=== PATIENT | male | born 1955 | race Two or more races ===

== ENCOUNTER 2021-04-02 17:10 | Inpatient (IN) | payer MEDICAID, OTHER ==
[~2021-04-02] VITALS: Ht 177.8 cm; Wt 83.5 kg
[2021-04-02] MEDS ORDERED: SODIUM CHLORIDE 0.9% 1,000 ML IV ONE (19:00)
[2021-04-02] MEDS ORDERED: IBUPROFEN 600 MG TAB PO ONE (19:00)
[2021-04-02 19:30] LABS: Calcium 8.2 mg/dL (8.5-10.1); Potassium 3.9 mmol/L (3.5-5.1)
[2021-04-02 19:34] LABS: Albumin 2.1 g/dL (3.4-5.0); BUN/Creatinine Ratio 12.1; Magnesium 2.1 mg/dL (1.6-2.6)
[2021-04-02 19:35] LABS: Basophils # (auto) 0 10 ^3/uL (0-0.2); Basophils % (auto) 0.3 % (0.0-2.0); Eosinophils # (auto) 0.1 10 ^3/uL (0-0.8); Eosinophils % (auto) 0.5 % (0.0-7.0); Hemoglobin 10.3 g/dL (13.5-17.5); Lymphocytes # (auto) 0.5 10 ^3/uL (0.4-5.4); Lymphocytes % (auto) 4.5 % (10.0-50.0)
[2021-04-02 19:36] LABS: Bilirubin, Total 0.6 mg/dL (0.2-1.0)
[2021-04-02 19:37] LABS: Hematocrit 31.2 % (41.0-53.0); Mean Corpuscular Hemoglobin 27.5 pg (28.0-32.0); Mean Corpuscular Hgb Conc. 32.9 g/dL (32.0-36.0); Mean Corpuscular Volume 83.6 fL (80.0-100.0); Monocytes # (auto) 1.2 10 ^3/uL (0-1.3); Monocytes % (auto) 11.3 % (0.0-12.0); Neutrophils # (auto) 8.5 10 ^3/uL (1.6-8.6); Neutrophils % (auto) 83.4 % (37.0-80.0); Red Blood Cells 3.74 10^6/uL (4.5-5.90); Red Cell Distribution Width 14.3 % (11.8-14.3); White Blood Cell 10.2 10^3/uL (4.4-10.8)
[2021-04-02] MEDS ORDERED: IOHEXOL 300 MG/ML 100ML BOTTLE IJ ONE (20:39)
[2021-04-02] MEDS ORDERED: ACETAMINOPHEN 325 MG TAB PO ONE (21:30)
[2021-04-02] MEDS ORDERED: metroNIDAZOLE 500MG/100ML 100 ML IV ONE (21:30)
[2021-04-02] MEDS ORDERED: CIPROFLOXACIN 400MG/200ML 200 ML IV ONE (21:30)
[2021-04-02] MEDS ORDERED: NITROGLYCERIN 0.4 MG SL TAB SL PRN (22:30)
[2021-04-02] MEDS ORDERED: MORPHINE SULFATE INJECTION 2 MG/ML SYRG IV PRN (22:30)
[2021-04-02] MEDS ORDERED: TEMAZEPAM 15 MG CAP PO PRN (22:30)
[2021-04-02] MEDS ORDERED: ACETAMINOPHEN 325 MG TAB PO PRN (22:30)
[2021-04-02] MEDS ORDERED: SODIUM CHLORIDE 0.9% 1,000 ML IV SCH (22:30)
[2021-04-02] MEDS ORDERED: PANTOPRAZOLE 40 MG/10 ML VIAL INJ IV ONE (22:30)
[2021-04-03 03:51] LABS: Basophils # (auto) 0 10 ^3/uL (0-0.2); Basophils % (auto) 0.3 % (0.0-2.0); Lymphocytes # (auto) 0.4 10 ^3/uL (0.4-5.4); Mean Corpuscular Volume 83.5 fL (80.0-100.0); White Blood Cell 12.2 10^3/uL (4.4-10.8)
[2021-04-03 03:52] LABS: Eosinophils # (auto) 0.1 10 ^3/uL (0-0.8); Eosinophils % (auto) 0.4 % (0.0-7.0); Hematocrit 28.6 % (41.0-53.0); Hemoglobin 9.3 g/dL (13.5-17.5); Lymphocytes % (auto) 3.5 % (10.0-50.0); Mean Corpuscular Hemoglobin 27.2 pg (28.0-32.0); Mean Corpuscular Hgb Conc. 32.6 g/dL (32.0-36.0); Monocytes # (auto) 1.6 10 ^3/uL (0-1.3); Monocytes % (auto) 13.1 % (0.0-12.0); Neutrophils # (auto) 10.1 10 ^3/uL (1.6-8.6); Neutrophils % (auto) 82.7 % (37.0-80.0); Red Blood Cells 3.42 10^6/uL (4.5-5.90); Red Cell Distribution Width 14.5 % (11.8-14.3)
[2021-04-03 04:13] LABS: Albumin 1.7 g/dL (3.4-5.0); Calcium 7.5 mg/dL (8.5-10.1); Potassium 3.3 mmol/L (3.5-5.1)
[2021-04-03 04:21] LABS: Bilirubin, Total 0.6 mg/dL (0.2-1.0); Total Protein 5.9 g/dL (6.4-8.2)
[2021-04-03] MEDS: metroNIDAZOLE 500MG/100ML 100 ML IV SCH ×3 (05:30→22:00)
[2021-04-03] MEDS ORDERED: ALBUMIN 5% 250 ML IV ONE (05:45)
[2021-04-03] MEDS ORDERED: POTASSIUM CHLORIDE 20 MEQ, LIDOCAINE 1% (LOCAL ANESTH.) 2 ML in SODIUM CHL 0.9% 100 ML IV ONE (11:00)
[2021-04-03] MEDS: cefTRIAXone 1GM/50ML D5W 50 ML IV SCH (11:05)
[2021-04-03] MEDS: PANTOPRAZOLE 40 MG/10 ML VIAL INJ IV SCH (11:06)
[2021-04-03] MEDS ORDERED: GOLYTELY 4L KIT PO ONE (11:30)
[2021-04-03] MEDS: SOD CHL 0.9%/ KCL 20MEQ 1,000 ML IV SCH (15:57)
[2021-04-03 16:21] LABS: % Iron Saturation 7.2 % (20-55)
[2021-04-03] MEDS: ONDANSETRON HCL 4 MG/2 ML VIAL IV PRN (17:23)
[2021-04-04 04:57] LABS: Urine Bacteria NONE SEEN /hpf (None Seen); Urine Blood Negative /uL (Negative); Urine Hyaline Cast MOD /lpf (0 - 2); Urine Mucus FEW (None Seen); Urine Specific Gravity 1.037 (1.001-1.035); Urine WBC 4 /hpf (0 - 3)
[2021-04-04 04:59] LABS: Alcohol, Urine < 3.0 mg/dL (0-10); Amphetamine Screen, Urine NEGATIVE (NEGATIVE); Barbiturate Scree,Urine NEGATIVE (NEGATIVE); Benzodiazephine Screen, Urine NEGATIVE (NEGATIVE); Cannabinoid Screen, Urine NEGATIVE (NEGATIVE); Cocaine Screen, Urine NEGATIVE (NEGATIVE); Opiate Scree,Urine NEGATIVE (NEGATIVE); Phencyclidine Screen, Urine NEGATIVE (NEGATIVE)
[2021-04-04] MEDS: metroNIDAZOLE 500MG/100ML 100 ML IV SCH ×3 (06:36→22:49)
[2021-04-04] MEDS: SOD CHL 0.9%/ KCL 20MEQ 1,000 ML IV SCH ×2 (06:37→15:51)
[2021-04-04] MEDS ORDERED: PANT40TA2 PO (06:46)
[2021-04-04 08:00] VITALS: BP 120/84
[2021-04-04 08:37] LABS: INR 1.21 (0.9-1.15); Partial Thromboplastin Time 38.6 sec (23.6-33.0)
[2021-04-04 09:00] VITALS: BP 120/64
[2021-04-04] MEDS ORDERED: SODIUM CHLORIDE LOCK 10 ML ONE (09:03)
[2021-04-04] MEDS ORDERED: diphenhdrAMINE HCL 50 MG/1 ML VL ONE (09:04)
[2021-04-04] MEDS: PANTOPRAZOLE 40 MG/10 ML VIAL INJ IV SCH (09:18)
[2021-04-04] MEDS: cefTRIAXone 1GM/50ML D5W 50 ML IV SCH (09:18)
[2021-04-04] MEDS: MIDAZOLAM HCL 5 MG/ML-1ML VIAL ONE ×3 (09:51→10:00)
[2021-04-04] MEDS: fentaNYL CITRATE 100 MCG/2 ML VL ONE ×3 (09:51→10:00)
[2021-04-04] MEDS ORDERED: LIDOCAINE VISCOUS 2% 15ML UD MT ONE (12:45)
[2021-04-04 13:00] VITALS: BP 121/71
[2021-04-04 16:36] VITALS: BP 121/67
[2021-04-04 22:00] VITALS: BP 147/78
[2021-04-04] MEDS: HYDROcodone-ACET 5/325MG TAB PO PRN (22:51)
[2021-04-05 05:00] VITALS: BP 118/66
[2021-04-05] MEDS: LIDOCAINE VISCOUS 2% 15ML UD MT PRN ×2 (05:06→18:34)
[2021-04-05 05:44] LABS: Hematocrit 24.2 % (41.0-53.0); Hemoglobin 8.3 g/dL (13.5-17.5)
[2021-04-05 06:04] LABS: BUN/Creatinine Ratio 15.7; Calcium 7.5 mg/dL (8.5-10.1); Potassium 3.5 mmol/L (3.5-5.1)
[2021-04-05] MEDS: metroNIDAZOLE 500MG/100ML 100 ML IV SCH ×3 (06:55→21:32)
[2021-04-05 08:00] VITALS: BP 134/80
[2021-04-05 09:00] VITALS: BP 134/80
[2021-04-05] MEDS: cefTRIAXone 1GM/50ML D5W 50 ML IV SCH (09:00)
[2021-04-05] MEDS: FERROUS SULFATE 325mg EC TAB PO SCH (12:00)
[2021-04-05 13:00] VITALS: BP 141/79
[2021-04-05 16:50] VITALS: BP 128/69
[2021-04-05] MEDS: HYDROcodone-ACET 5/325MG TAB PO PRN (21:31)
[2021-04-05] MEDS: ONDANSETRON HCL 4 MG/2 ML VIAL IV PRN (21:32)
[2021-04-05 22:00] VITALS: BP 116/60
[2021-04-06 05:00] VITALS: BP 110/61
[2021-04-06] MEDS: metroNIDAZOLE 500MG/100ML 100 ML IV SCH ×3 (05:54→21:25)
[2021-04-06 07:18] LABS: Basophils # (auto) 0 10 ^3/uL (0-0.2); Eosinophils # (auto) 0.2 10 ^3/uL (0-0.8); Hemoglobin 8.6 g/dL (13.5-17.5); Lymphocytes # (auto) 0.7 10 ^3/uL (0.4-5.4); Monocytes # (auto) 0.9 10 ^3/uL (0-1.3); Neutrophils # (auto) 3.3 10 ^3/uL (1.6-8.6)
[2021-04-06 07:19] LABS: Basophils % (auto) 0.6 % (0.0-2.0); Eosinophils % (auto) 3.7 % (0.0-7.0); Hematocrit 25.8 % (41.0-53.0); Lymphocytes % (auto) 13.3 % (10.0-50.0); Mean Corpuscular Hemoglobin 27.6 pg (28.0-32.0); Mean Corpuscular Hgb Conc. 33.2 g/dL (32.0-36.0); Mean Corpuscular Volume 83.2 fL (80.0-100.0); Monocytes % (auto) 17.1 % (0.0-12.0); Neutrophils % (auto) 65.3 % (37.0-80.0); Nucleated Red Blood Cells % 0.6 %; Red Blood Cells 3.11 10^6/uL (4.5-5.90); Red Cell Distribution Width 14.8 % (11.8-14.3)
[2021-04-06 07:38] LABS: Magnesium 1.9 mg/dL (1.6-2.6); Potassium 3.2 mmol/L (3.5-5.1)
[2021-04-06] MEDS: LIDOCAINE VISCOUS 2% 15ML UD MT PRN ×2 (08:38→18:27)
[2021-04-06 09:00] VITALS: BP 120/68
[2021-04-06] MEDS ORDERED: POTASSIUM CHL 20 Meq TABLET PO ONE (09:15)
[2021-04-06] MEDS: cefTRIAXone 1GM/50ML D5W 50 ML IV SCH (09:38)
[2021-04-06] MEDS ORDERED: MAGNESIUM SULFATE 1GM/100ML 100 ML IV ONE (10:45)
[2021-04-06 12:40] LABS: Hematocrit 25.5 % (41.0-53.0); Hemoglobin 8.6 g/dL (13.5-17.5)
[2021-04-06 12:52] LABS: Magnesium 1.8 mg/dL (1.6-2.6); Potassium 3.3 mmol/L (3.5-5.1)
[2021-04-06 13:05] VITALS: BP 116/70
[2021-04-06] MEDS: FERROUS SULFATE 325mg EC TAB PO SCH (14:09)
[2021-04-06 17:10] VITALS: BP 112/71
[2021-04-06] MEDS: HYOSCYAMINE SULF 0.125 MG ODT TAB PO PRN (18:28)
[2021-04-06 22:00] VITALS: BP 119/68
[2021-04-07] MEDS: HYOSCYAMINE SULF 0.125 MG ODT TAB PO PRN (00:07)
[2021-04-07 05:00] VITALS: BP 123/68
[2021-04-07] MEDS: metroNIDAZOLE 500MG/100ML 100 ML IV SCH ×2 (05:49→14:30)
[2021-04-07] MEDS: HYDROcodone-ACET 5/325MG TAB PO PRN ×2 (06:01→11:39)
[2021-04-07] MEDS: LIDOCAINE VISCOUS 2% 15ML UD MT PRN (08:27)
[2021-04-07] MEDS: cefTRIAXone 1GM/50ML D5W 50 ML IV SCH (08:27)
[2021-04-07 08:30] VITALS: BP 119/67
[2021-04-07] MEDS ORDERED: MAGNESIUM SULFATE 1GM/100ML 100 ML IV ONE (09:45)
[2021-04-07] MEDS ORDERED: POTASSIUM CHL 20 Meq TABLET PO ONE (09:45)
[2021-04-07] MEDS: FERROUS SULFATE 325mg EC TAB PO SCH (11:39)
[2021-04-07 12:30] VITALS: BP 115/64
[2021-04-07] MEDS ORDERED: HYOS0.1289 PO (12:51)
[2021-04-07] MEDS ORDERED: METR500T PO (12:51)
[2021-04-07] MEDS ORDERED: LEVO-28 PO (12:51)
[2021-04-07] MEDS ORDERED: ONDA-144 PO (12:51)
[2021-04-07 13:26] VITALS: BP 115/64
[2021-04-07] MEDS ORDERED: LIDV15LQ MT (14:31)
[2021-04-07] MEDS ORDERED: FER325T PO (15:35)
== END 2021-04-07 14:32 | disposition hospice, home (50) | DRG 245 ==
LOC: ER 17:10 → TELE 22:23 → TELE-CENTR 04-04 05:55
PROVIDERS: ADMIT Nurse Practitioner; ATTEND Internal Medicine
PROC: 0DJD8ZZ Inspection of Lower Intestinal Tract, Via Natural or Artificial Opening Endoscopic (ICD-10-PCS; principal; 2021-04-04 09:45)
DX: K51.90 Ulcerative colitis, unspecified, without complications (principal); E43 Unspecified severe protein-calorie malnutrition; D50.9 Iron deficiency anemia, unspecified; I10 Essential (primary) hypertension; E87.6 Hypokalemia; K92.1 Melena; Z20.822 Contact with and (suspected) exposure to COVID-19; Z96.649 Presence of unspecified artificial hip joint; Z68.25 Body mass index [BMI] 25.0-25.9, adult; Z85.46 Personal history of malignant neoplasm of prostate
CPT/HCPCS: 36415; 45378; 71045; 71260; 74177; 80048; 80053; 80307; 81001; 83540; 83550; 83605; 83690; 83735; 83880; 84132; 84484; 85014; 85018; 85025; 85610; 85730; 86703; 86850; 86900; 86901; 87040; 87045; 87426; 87427; 93005; 96361; 96365; 96366; 96368; 96375; C9113; G0378; J0696; J2001; J2250; J2405; J3490

== ENCOUNTER → 2021-05-05 | Outpatient (CLI) | payer MEDICAID ==
[~2021-05-05] MED LIST: FER325T PO; HYOS0.1289 PO; LEVO-28 PO; LIDV15LQ MT; METR500T PO; ONDA-144 PO
[2021-05-05 12:10] LABS: Basophils # (auto) 0.1 10 ^3/uL (0-0.2); Basophils % (auto) 0.6 % (0.0-2.0); Eosinophils # (auto) 0 10 ^3/uL (0-0.8); Eosinophils % (auto) 0.3 % (0.0-7.0); Hematocrit 31.8 % (41.0-53.0); Hemoglobin 10.2 g/dL (13.5-17.5); Lymphocytes # (auto) 1.5 10 ^3/uL (0.4-5.4); Mean Corpuscular Volume 84.3 fL (80.0-100.0); Monocytes # (auto) 0.9 10 ^3/uL (0-1.3); Monocytes % (auto) 9.1 % (0.0-12.0); Neutrophils # (auto) 7.6 10 ^3/uL (1.6-8.6); Red Blood Cells 3.78 10^6/uL (4.5-5.90); Red Cell Distribution Width 22.4 % (11.8-14.3); White Blood Cell 10.1 10^3/uL (4.4-10.8)
[2021-05-05 12:31] LABS: Albumin 2.4 g/dL (3.4-5.0); Potassium 3.6 mmol/L (3.5-5.1)
[2021-05-05 12:36] LABS: BUN/Creatinine Ratio 18.2; Bilirubin, Total 0.3 mg/dL (0.2-1.0)
== END | disposition home or self-care (01) ==
LOC: LAB 11:18
PROVIDERS: ATTEND Internal Medicine Gastroenterology
DX: R19.7 Diarrhea, unspecified (principal); K51.90 Ulcerative colitis, unspecified, without complications
CPT/HCPCS: 36415; 80053; 82728; 85025; 86256; 86671

== ENCOUNTER → 2021-06-23 | Outpatient (CLI) | payer MEDICAID ==
[2021-06-23 11:37] LABS: Basophils # (auto) 0 10 ^3/uL (0-0.2); Eosinophils # (auto) 0 10 ^3/uL (0-0.8); Eosinophils % (auto) 0.7 % (0.0-7.0); Lymphocytes # (auto) 0.3 10 ^3/uL (0.4-5.4); Mean Corpuscular Hgb Conc. 32.5 g/dL (32.0-36.0); Monocytes # (auto) 0.8 10 ^3/uL (0-1.3); Neutrophils # (auto) 3.5 10 ^3/uL (1.6-8.6); Nucleated Red Blood Cells % 0.1 %; Red Blood Cells 4.24 10^6/uL (4.5-5.90)
[2021-06-23 11:40] LABS: Basophils % (auto) 0.9 % (0.0-2.0); Hematocrit 33.7 % (41.0-53.0); Lymphocytes % (auto) 6.5 % (10.0-50.0); Mean Corpuscular Hemoglobin 25.8 pg (28.0-32.0); Mean Corpuscular Volume 79.3 fL (80.0-100.0); Monocytes % (auto) 16.7 % (0.0-12.0); Neutrophils % (auto) 75.2 % (37.0-80.0); Red Cell Distribution Width 18.6 % (11.8-14.3); White Blood Cell 4.6 10^3/uL (4.4-10.8)
[2021-06-23 12:43] LABS: Calcium 8.6 mg/dL (8.5-10.1); Potassium 3.7 mmol/L (3.5-5.1)
[2021-06-23 12:46] LABS: BUN/Creatinine Ratio 8.4
== END | disposition home or self-care (01) ==
LOC: LAB 11:19
PROVIDERS: ATTEND Internal Medicine Gastroenterology
DX: K51.90 Ulcerative colitis, unspecified, without complications (principal); D64.9 Anemia, unspecified
CPT/HCPCS: 36415; 80048; 83690; 85025

== ENCOUNTER → 2022-01-02 | Outpatient (CLI) | payer MEDICAID ==
[2022-01-02 08:53] LABS: Basophils # (auto) 0 10 ^3/uL (0-0.2); Basophils % (auto) 0.7 % (0.0-2.0); Eosinophils # (auto) 0.1 10 ^3/uL (0-0.8); Hematocrit 38.1 % (41.0-53.0); Hemoglobin 12.3 g/dL (13.5-17.5); Lymphocytes # (auto) 0.9 10 ^3/uL (0.4-5.4); Mean Corpuscular Hemoglobin 29.4 pg (28.0-32.0); Mean Corpuscular Hgb Conc. 32.3 g/dL (32.0-36.0); Mean Corpuscular Volume 90.9 fL (80.0-100.0); Monocytes # (auto) 0.7 10 ^3/uL (0-1.3); Monocytes % (auto) 16.4 % (0.0-12.0); Neutrophils # (auto) 2.6 10 ^3/uL (1.6-8.6); Neutrophils % (auto) 59.9 % (37.0-80.0); Nucleated Red Blood Cells % 0.1 %; Red Blood Cells 4.19 10^6/uL (4.5-5.90); Red Cell Distribution Width 16.9 % (11.8-14.3); White Blood Cell 4.4 10^3/uL (4.4-10.8)
[2022-01-02 09:18] LABS: Albumin 3.3 g/dL (3.4-5.0); Calcium 8.5 mg/dL (8.5-10.1); Potassium 3.4 mmol/L (3.5-5.1)
[2022-01-02 09:23] LABS: BUN/Creatinine Ratio 10.8; Bilirubin, Total 0.5 mg/dL (0.2-1.0); Total Protein 6.3 g/dL (6.4-8.2)
== END | disposition home or self-care (01) ==
LOC: LAB 08:23
PROVIDERS: ATTEND Internal Medicine Gastroenterology
DX: K51.90 Ulcerative colitis, unspecified, without complications (principal)
CPT/HCPCS: 36415; 80053; 85025; 85652

== ENCOUNTER 2022-03-01 23:15 | Inpatient (IN) | payer BC, MEDICAID ==
[~2022-03-01] VITALS: Ht 172.7 cm; Wt 86.0 kg
[2022-03-02 02:09] LABS: Basophils # (auto) 0 10 ^3/uL (0-0.2); Basophils % (auto) 0.6 % (0.0-2.0); Eosinophils # (auto) 0 10 ^3/uL (0-0.8); Eosinophils % (auto) 0.7 % (0.0-7.0); Hematocrit 31.4 % (41.0-53.0); Hemoglobin 10.6 g/dL (13.5-17.5); Lymphocytes # (auto) 0.4 10 ^3/uL (0.4-5.4); Mean Corpuscular Hemoglobin 31.4 pg (28.0-32.0); Mean Corpuscular Hgb Conc. 33.8 g/dL (32.0-36.0); Monocytes # (auto) 0.7 10 ^3/uL (0-1.3); Monocytes % (auto) 12.1 % (0.0-12.0); Neutrophils # (auto) 4.3 10 ^3/uL (1.6-8.6); Neutrophils % (auto) 79.6 % (37.0-80.0); Red Blood Cells 3.38 10^6/uL (4.5-5.90); Red Cell Distribution Width 13.2 % (11.8-14.3); White Blood Cell 5.4 10^3/uL (4.4-10.8)
[2022-03-02 02:27] LABS: Potassium 3.6 mmol/L (3.5-5.1)
[2022-03-02 02:32] LABS: Albumin 2.9 g/dL (3.4-5.0); BUN/Creatinine Ratio 12.4
[2022-03-02 02:35] LABS: Bilirubin, Total 0.2 mg/dL (0.2-1.0); Total Protein 6.2 g/dL (6.4-8.2)
[2022-03-02] MEDS ORDERED: PANTOPRAZOLE 80 MG in SODIUM CHL 0.9% 100 ML IV ONE (03:45)
[2022-03-02] MEDS ORDERED: PANTOPRAZOLE 40mg/50ML NS AE 50 ML IV ONE (03:45)
[2022-03-02 03:52] LABS: Urine Bacteria NONE SEEN /hpf (None Seen); Urine Blood Negative /uL (Negative); Urine Hyaline Cast MANY /lpf (0 - 2); Urine Mucus FEW (None Seen); Urine Specific Gravity 1.028 (1.001-1.035); Urine WBC 5 /hpf (0 - 3)
[2022-03-02] MEDS ORDERED: PANTOPRAZOLE 40 MG/10 ML VIAL INJ IV ONE (04:09)
[2022-03-02] MEDS ORDERED: ONDANSETRON HCL 4 MG/2 ML VIAL IV PRN (06:15)
[2022-03-02] MEDS ORDERED: MORPHINE SULFATE INJ 2 MG/ml SYRG IV PRN (06:15)
[2022-03-02] MEDS ORDERED: NITROGLYCERIN 0.4 MG SL TAB SL PRN (06:15)
[2022-03-02] MEDS: SODIUM CHLORIDE 0.9% 1,000 ML IV SCH ×2 (06:43→21:10)
[2022-03-02 06:58] LABS: Hematocrit 31.6 % (41.0-53.0); Hemoglobin 10.5 g/dL (13.5-17.5)
[2022-03-02 07:15] LABS: INR 0.98 (0.9-1.15); Partial Thromboplastin Time 33.5 sec (24.6-33.4)
[2022-03-02 08:39] LABS: Amphetamine Screen, Urine NEGATIVE (NEGATIVE); Barbiturate Scree,Urine NEGATIVE (NEGATIVE); Benzodiazephine Screen, Urine NEGATIVE (NEGATIVE); Cannabinoid Screen, Urine NEGATIVE (NEGATIVE); Cocaine Screen, Urine NEGATIVE (NEGATIVE); Opiate Scree,Urine POSITIVE (NEGATIVE); Phencyclidine Screen, Urine NEGATIVE (NEGATIVE)
[2022-03-02] MEDS: PANTOPRAZOLE 40 MG/10 ML VIAL INJ IV SCH ×2 (10:11→22:58)
[2022-03-03 01:14] VITALS: BP_SYST 135; BP_SYST 148; BP_DIAS 75; BP_DIAS 80
[2022-03-03 05:08] LABS: Basophils # (auto) 0 10 ^3/uL (0-0.2); Basophils % (auto) 1.1 % (0.0-2.0); Eosinophils # (auto) 0.2 10 ^3/uL (0-0.8); Eosinophils % (auto) 4.1 % (0.0-7.0); Hematocrit 31.9 % (41.0-53.0); Hemoglobin 10.5 g/dL (13.5-17.5); Lymphocytes # (auto) 0.7 10 ^3/uL (0.4-5.4); Lymphocytes % (auto) 16.8 % (10.0-50.0); Mean Corpuscular Hemoglobin 30.6 pg (28.0-32.0); Mean Corpuscular Hgb Conc. 32.9 g/dL (32.0-36.0); Mean Corpuscular Volume 93.1 fL (80.0-100.0); Monocytes # (auto) 0.6 10 ^3/uL (0-1.3); Monocytes % (auto) 14.6 % (0.0-12.0); Neutrophils # (auto) 2.7 10 ^3/uL (1.6-8.6); Neutrophils % (auto) 63.4 % (37.0-80.0); Red Blood Cells 3.43 10^6/uL (4.5-5.90); Red Cell Distribution Width 13.2 % (11.8-14.3); White Blood Cell 4.2 10^3/uL (4.4-10.8)
[2022-03-03 05:29] LABS: Albumin 2.6 g/dL (3.4-5.0); Potassium 3.7 mmol/L (3.5-5.1)
[2022-03-03 05:39] LABS: BUN/Creatinine Ratio 8.8; Bilirubin, Total 0.4 mg/dL (0.2-1.0); CRP High Sensitivity 2.4 mg/dL (< 0.3); Total Protein 5.3 g/dL (6.4-8.2)
[2022-03-03] MEDS: SODIUM CHLORIDE 0.9% 1,000 ML IV SCH ×2 (08:55→22:22)
[2022-03-03 09:00] VITALS: BP 134/70
[2022-03-03] MEDS ORDERED: SODIUM CHLORIDE LOCK 0 ML ONE (09:11)
[2022-03-03] MEDS ORDERED: LIDOCAINE VISCOUS 2% 15ML UD ONE (09:12)
[2022-03-03] MEDS ORDERED: diphenhdrAMINE HCL 50 MG/1 ML VL ONE (09:12)
[2022-03-03] MEDS ORDERED: MIDAZOLAM HCL 5 MG/ML-1ML VIAL ONE (09:12)
[2022-03-03] MEDS ORDERED: fentaNYL CITRATE 100 MCG/2 ML VL ONE (09:12)
[2022-03-03] MEDS: predniSONE 20 MG TAB PO SCH (10:00)
[2022-03-03] MEDS: PANTOPRAZOLE 40 MG/10 ML VIAL INJ IV SCH ×2 (10:00→22:22)
[2022-03-03] MEDS: azaTHIOprine 50 MG TAB PO SCH (10:00)
[2022-03-03 13:00] VITALS: BP 142/70
[2022-03-03] MEDS ORDERED: ACETAMINOPHEN 500 MG TAB PO PRN (16:00)
[2022-03-03 17:00] VITALS: BP 145/73
[2022-03-03] MEDS ORDERED: AZAT50TA6 PO (19:38)
[2022-03-03] MEDS ORDERED: SULF500T6 PO (19:38)
[2022-03-03] MEDS ORDERED: FOLI1TAB6 PO (19:38)
[2022-03-03] MEDS ORDERED: PANT40TA2 PO (19:38)
[2022-03-03] MEDS ORDERED: PRE5T PO (19:38)
[2022-03-03 22:00] VITALS: BP 125/69
[2022-03-04 05:00] VITALS: BP 140/70
[2022-03-04 09:00] VITALS: BP 152/71
[2022-03-04] MEDS ORDERED: LIDOCAINE VISCOUS 2% 15ML UD ONE (09:10)
[2022-03-04] MEDS ORDERED: SODIUM CHLORIDE LOCK 10 ML ONE (09:10)
[2022-03-04] MEDS ORDERED: diphenhdrAMINE HCL 50 MG/1 ML VL ONE (09:11)
[2022-03-04] MEDS: fentaNYL CITRATE 100 MCG/2 ML VL ONE ×2 (09:19→09:23)
[2022-03-04] MEDS: MIDAZOLAM HCL 5 MG/ML-1ML VIAL ONE ×2 (09:19→09:23)
[2022-03-04] MEDS: PANTOPRAZOLE 40 MG/10 ML VIAL INJ IV SCH ×2 (10:28→21:37)
[2022-03-04] MEDS: azaTHIOprine 50 MG TAB PO SCH (10:29)
[2022-03-04] MEDS: predniSONE 20 MG TAB PO SCH (10:29)
[2022-03-04] MEDS ORDERED: SULF500T6 PO (10:35)
[2022-03-04] MEDS: SODIUM CHLORIDE 0.9% 1,000 ML IV SCH (12:10)
[2022-03-04 13:00] VITALS: BP 142/81
[2022-03-04] MEDS: OXYCODONE W/ ACETAMINOPHEN 5/325MG TABLET PO PRN ×2 (14:27→21:38)
[2022-03-04 17:00] VITALS: BP 138/78
[2022-03-04 22:00] VITALS: BP 138/78
[2022-03-05] MEDS: SODIUM CHLORIDE 0.9% 1,000 ML IV SCH ×2 (00:57→13:54)
[2022-03-05 05:00] VITALS: BP 154/76
[2022-03-05 05:57] LABS: Hemoglobin 11.4 g/dL (13.5-17.5); Mean Corpuscular Hemoglobin 31.6 pg (28.0-32.0); Mean Corpuscular Hgb Conc. 34.6 g/dL (32.0-36.0); Mean Corpuscular Volume 91.4 fL (80.0-100.0); Red Blood Cells 3.61 10^6/uL (4.5-5.90); Red Cell Distribution Width 12.7 % (11.8-14.3); White Blood Cell 4.4 10^3/uL (4.4-10.8)
[2022-03-05 06:25] LABS: Band Neutrophils % (manual) 0; Basophils % (manual) 0 (0.0-2.0); Blast Cells 0; Eosinophils % (manual) 0 (0-7); Metamyelocytes % 0; Myelocytes % 0; Promyelocytes % 0; Reactive Lymphocytes 0
[2022-03-05 07:39] LABS: Lymphocytes % (manual) 13 (10.0-50.0); Monocytes % (manual) 16 (0-12)
[2022-03-05 08:15] VITALS: BP 137/73
[2022-03-05] MEDS ORDERED: PANT40T PO (08:23)
[2022-03-05] MEDS ORDERED: FOLI1TAB6 PO (08:23)
[2022-03-05] MEDS ORDERED: AZAT50TA6 PO (08:23)
[2022-03-05] MEDS ORDERED: PRED20TA2 PO (08:23)
[2022-03-05] MEDS ORDERED: SULF500T6 PO (08:24)
[2022-03-05 09:00] VITALS: BP 137/73
[2022-03-05] MEDS: OXYCODONE W/ ACETAMINOPHEN 5/325MG TABLET PO PRN (09:07)
[2022-03-05] MEDS: PANTOPRAZOLE 40 MG/10 ML VIAL INJ IV SCH (10:17)
[2022-03-05] MEDS: predniSONE 20 MG TAB PO SCH (10:18)
[2022-03-05] MEDS: azaTHIOprine 50 MG TAB PO SCH (10:19)
[2022-03-05 12:52] VITALS: BP 137/73
[2022-03-05 13:00] VITALS: BP 141/69
== END 2022-03-05 14:40 | disposition home or self-care (01) | DRG 378 ==
LOC: EDBD 23:15 → EDUNIT# 23:15 → ER 23:20 → TELE 03-02 06:06 → TELE-CENTR 03-02 21:48
PROVIDERS: ADMIT Nurse Practitioner; ATTEND Family Medicine
PROC: 0DB68ZX Excision of Stomach, Via Natural or Artificial Opening Endoscopic, Diagnostic (ICD-10-PCS; principal; 2022-03-04 09:15)
DX: K29.71 Gastritis, unspecified, with bleeding (principal); D62 Acute posthemorrhagic anemia; I10 Essential (primary) hypertension; Z20.822 Contact with and (suspected) exposure to COVID-19; Z85.46 Personal history of malignant neoplasm of prostate
CPT/HCPCS: 36415; 71045; 73030; 80053; 80307; 81001; 82270; 85007; 85014; 85018; 85025; 85027; 85610; 85730; 86141; 86850; 86900; 86901; 87045; 87427; 96365; C9113; G0378; J2250

== ENCOUNTER → 2022-07-20 | Outpatient (CLI) | payer BC, MEDICAID ==
[~2022-07-20] MED LIST changes: +AZAT50TA6 PO; +FOLI1TAB6 PO; +PANT40T PO; +PANT40TA2 PO; +PRE5T PO; +PRED20TA2 PO; +SULF500T6 PO
[2022-07-20 12:28] LABS: Basophils # (auto) 0 10 ^3/uL (0-0.2); Basophils % (auto) 0.9 % (0.0-2.0); Eosinophils # (auto) 0.1 10 ^3/uL (0-0.8); Eosinophils % (auto) 2.6 % (0.0-7.0); Hematocrit 37.2 % (41.0-53.0); Hemoglobin 12.1 g/dL (13.5-17.5); Lymphocytes # (auto) 0.7 10 ^3/uL (0.4-5.4); Lymphocytes % (auto) 18.4 % (10.0-50.0); Mean Corpuscular Hemoglobin 28.8 pg (28.0-32.0); Mean Corpuscular Hgb Conc. 32.4 g/dL (32.0-36.0); Mean Corpuscular Volume 88.8 fL (80.0-100.0); Monocytes # (auto) 0.6 10 ^3/uL (0-1.3); Monocytes % (auto) 16.8 % (0.0-12.0); Neutrophils # (auto) 2.3 10 ^3/uL (1.6-8.6); Neutrophils % (auto) 61.3 % (37.0-80.0); Red Blood Cells 4.19 10^6/uL (4.5-5.90); Red Cell Distribution Width 15.4 % (11.8-14.3); White Blood Cell 3.7 10^3/uL (4.4-10.8)
[2022-07-20 13:02] LABS: Potassium 3.7 mmol/L (3.5-5.1)
[2022-07-20 13:24] LABS: Albumin 3.6 g/dL (3.4-5.0); BUN/Creatinine Ratio 12.9; Bilirubin, Total 0.4 mg/dL (0.2-1.0); Total Protein 6.9 g/dL (6.4-8.2)
== END | disposition home or self-care (01) ==
LOC: LAB 10:56
PROVIDERS: ATTEND Internal Medicine Gastroenterology
DX: K51.90 Ulcerative colitis, unspecified, without complications (principal)
CPT/HCPCS: 36415; 80053; 80061; 82378; 83036; 85025

== ENCOUNTER → 2024-07-28 | Day surgery (SDC) | payer MEDICAID ==
[2024-07-24 11:08] LABS: INR 0.99 (0.9-1.15); Partial Thromboplastin Time 33.2 SEC (24.5-34.5); Prothrombin Time 10.5 sec (9.3-11.8)
[2024-07-24 11:16] LABS: Basophils # (auto) 0 10 ^3/uL (0-0.2); Basophils % (auto) 0.7 % (0.0-2.0); Eosinophils # (auto) 0.1 10 ^3/uL (0-0.8); Hematocrit 40.6 % (41.0-53.0); Hemoglobin 13.6 g/dL (13.5-17.5); Lymphocytes # (auto) 0.5 10 ^3/uL (0.4-5.4); Mean Corpuscular Hemoglobin 30.7 pg (28.0-32.0); Mean Corpuscular Hgb Conc. 33.4 g/dL (32.0-36.0); Monocytes # (auto) 0.5 10 ^3/uL (0-1.3); Monocytes % (auto) 13.7 % (0.0-12.0); Neutrophils # (auto) 2.4 10 ^3/uL (1.6-8.6); Neutrophils % (auto) 66.6 % (37.0-80.0); Nucleated Red Blood Cells % 0.1 %; Platelet Count (auto) 210 10^3/uL (140-450); Red Blood Cells 4.42 10^6/uL (4.5-5.90); Red Cell Distribution Width 15.8 % (11.8-14.3); White Blood Cell 3.6 10^3/uL (4.4-10.8)
[2024-07-24 12:02] LABS: Alanine Aminotransferase 13 U/L (7-40); Albumin 4.6 g/dL (3.2-4.8); Anion Gap 9 (5-15); Aspartate Aminotransferase 16 U/L (13-40); BUN/Creatinine Ratio 13.2 (10.0-20.0); Bilirubin, Total 0.7 mg/dL (0.2-1.0); Blood Urea Nitrogen 12 mg/dL (9-23); Carbon Dioxide 25 mmol/L (20-31); Glucose 92 mg/dL (74-106); Potassium 4.1 mmol/L (3.5-5.1); Sodium 142 mmol/L (136-145); Total Protein 7.1 g/dL (5.7-8.2)
[2024-07-24 12:12] LABS: Alkaline Phosphatase 132 U/L (46-116); Chloride 108 mmol/L (98-107)
[~2024-07-28] VITALS: Ht 175.3 cm; Wt 81.6 kg
[~2024-07-28] MED LIST changes: +AZAT50TA35 PO; -AZAT50TA6 PO; -FER325T PO; -FOLI1TAB6 PO; -HYOS0.1289 PO; -LEVO-28 PO; -LIDV15LQ MT; +MESA1.2T PO; -METR500T PO; -ONDA-144 PO; -PANT40T PO; -PANT40TA2 PO; -PRE5T PO; -PRED20TA2 PO; +SODIUM CHLORIDE LOCK 10 ML ONE; -SULF500T6 PO; +TOFA10TA PO
[2024-07-28 09:08] VITALS: TEMP 97.9
[2024-07-28] MEDS: diphenhdrAMINE HCL 50 MG/1 ML VL ONE (12:44)
[2024-07-28] MEDS: MIDAZOLAM HCL 5 MG/ML-1ML VIAL ONE (12:44)
[2024-07-28] MEDS: fentaNYL CITRATE 100 MCG/2 ML VL ONE (12:44)
[2024-07-28 13:23] VITALS: PULSE 75; RESP 16; O2SAT 100
[2024-07-28 13:38] VITALS: BP 114/42; PULSE 74; RESP 15; O2SAT 100
--- NOTE | 2024-07-28 16:01 | DVHOP2 ---
Operative Report DATE OF OPERATION: 07/28/24 PROCEDURE: Colonoscopy with snare polypectomy. PREOPERATIVE INDICATION: The patient is a 68 -year-old male undergoing colonoscopy for surveillance with a history of ulcerative colitis POSTOPERATIVE DIAGNOSES: 1. Patient had some residual sigmoid inflammation and sigmoiditis with some hyperemia erythema superficial mucopus and there were multiple pseudopolyps in this area from which biopsies were obtained 2. There was a 1-1.5 cm polyp on a stalk in the sigmoid colon at 25 cm above the anal verge this was removed via snare polypectomy and the specimens were retrieved 3. Mild sigmoid diverticular disease 4. The rest of the colon did not show any active colitis in the colitis appeared to be in remission in the right colon 3. Trace to 1+ internal hemorrhoids otherwise essentially completely normal colonoscopy examination up to the cecum PROCEDURE PERFORMED BY: Marlene Obregon M.D. SCOPE: Olympus videocolonoscope. ASA CLASS: 2. PREOPERATIVE MEDICATIONS: Versed 3 mg, Fentanyl 75 mcg, Benadryl 50 mg PROCEDURE IN DETAIL: After obtaining an informed consent, the patient was placed on left lateral decubitus position. He was then sedated with the above medications. A rectal examination was performed that was normal. The colonoscope was then passed through the anus into the rectosigmoid and through the descending, transverse, and ascending colon up to the cecum with visualization of the appendiceal orifice, base of the cecum and the ileocecal valve. The colonoscope was then withdrawn. No masses were seen. The right colon appeared to be normal There was mild residual sigmoiditis extending from about 15-30 cm above the anal verge with some hyperemia erythema and some pseudopolyps in the left colon Multiple biopsies were obtained from the pseudopolyps. There was one larger polyp on a short stalk that was removed completely via snare polypectomy. This ulcer appeared to be a pseudopolyp Patient had mild sigmoid diverticular disease. On retroflexion and straight on view the patient had 1+ internal hemorrhoids. The patient tolerated the procedure well without difficulty. WITHDRAWAL TIME: 14 minutes QUALITY OF THE PREP: [place] Bowel Prep score: 9. COMPLICATIONS : None SPECIMENS: Sigmoid pseudopolyp biopsies Sigmoid polyp DISPOSITION: Stable D/C to home PLAN: 1. Repeat colonoscopy base on biopsy result likely in 3-5 years 2. Resume GI soft diet advance as tolerated 3. Continue current medical management 4. Outpatient follow up with me in 4-6 weeks to review results and discuss further management MARLENE OBREGON MD Jul 28, 2024 16:01
== END | disposition home or self-care (01) ==
LOC: GI 08:57
PROVIDERS: ATTEND Internal Medicine Gastroenterology
DX: K51.90 Ulcerative colitis, unspecified, without complications (principal); K63.5 Polyp of colon; K57.30 Diverticulosis of large intestine without perforation or abscess without bleeding; K64.8 Other hemorrhoids; Z79.899 Other long term (current) drug therapy; Z96.642 Presence of left artificial hip joint; Z98.890 Other specified postprocedural states
CPT/HCPCS: 36415; 45380; 45385; 80053; 85025; 85610; 85730; 88305; J1200; J2250; J3010; J7030; 99152

== ENCOUNTER 2025-01-29 17:53 | Inpatient (IN) | payer MEDICAID ==
[~2025-01-29] VITALS: Ht 167.6 cm; Wt 78.0 kg
[~2025-01-29 17:53] MED LIST changes: -SODIUM CHLORIDE LOCK 10 ML ONE
[2025-01-29] MEDS: SODIUM CHLORIDE 0.9% 1,000 ML IV ONE (18:30)
[2025-01-29 19:07] LABS: Hematocrit 33.6 % (41.0-53.0); Hemoglobin 11.4 g/dL (13.5-17.5); Mean Corpuscular Hemoglobin 27.3 pg (28.0-32.0); Mean Corpuscular Volume 80.6 fL (80.0-100.0); Nucleated Red Blood Cells % 0.0 %
[2025-01-29 19:17] LABS: Albumin 3.6 g/dL (3.2-4.8); Alkaline Phosphatase 59 U/L (46-116); Anion Gap 10 (5-15); BUN/Creatinine Ratio 12.4 (10.0-20.0); Bilirubin, Total 0.5 mg/dL (0.2-1.0); Blood Urea Nitrogen 13 mg/dL (9-23); Carbon Dioxide 23 mmol/L (20-31); Chloride 102 mmol/L (98-107); Glucose 101 mg/dL (74-106); Lipase 22 U/L (12-53); Potassium 3.8 mmol/L (3.5-5.1); Total Protein 6.3 g/dL (5.7-8.2)
[2025-01-29 19:18] LABS: Alanine Aminotransferase < 9 U/L (7-40); Calcium 8.1 mg/dL (8.7-10.4); Sodium 135 mmol/L (136-145)
--- NOTE | 2025-01-29 19:37 | DVH ---
CT SCAN ABDOMEN AND PELVIS WITHOUT CONTRAST CLINICAL HISTORY: abd pain TECHNIQUE: Helical axial images are obtained from the lung bases through the pelvis without oral cont rast. No intravenous contrast was administered. Coronal and sagittal reformatted images were generate d from thin section reconstructions. One or more of the following radiation dose reduction techniques were used for this examination: automated exposure control, adjustment of the mA and/or kV according to patient size, use of iterative reconstruction technique. COMPARISON: 04/02/2021 FINDINGS: LOWER THORAX: Imaged lung bases are grossly clear. ABDOMEN AND PELVIS: Evaluation of visceral and vascular structures is limited due to lack of contrast administration. Stable appearing scattered cystic hypodensities mainly seen in the hepatic dome. Gallbladder is mildl y distended. No sizable, radiopaque cholelithiasis or biliary ductal dilatation. The unenhanced pancreas, spleen and adrenals appear grossly unremarkable. No hydroureteronephrosis or sizable, obstructing urinary tract calculi identified. Aortoiliac atherosclerotic calcifications. No evidence of abdominal aortic aneurysm. No evidence of small-bowel obstruction. Thickening of the sigmoid and distal descending colon with pericolonic fat stranding. A few scattered diverticuli are noted. Streak artifact from the left hip arthroplasty hardware limits evaluation of the rectosigmoid region. As visualized, no sizable pericolonic fluid collections identified. No defi nite evidence of pneumoperitoneum. Appendix is again noted to be prominent in caliber, measuring approximately 1.2 cm in diameter. There is fat deposition within the appendiceal wall which may be sequelae of chronic inflammatory disease. No sizable appendicolith or periappendiceal fluid collections. No definite bladder calculus. Multilevel degenerative changes of the thoracic and lumbar spine. IMPRESSION: Thickening and pericolonic inflammatory change involving the sigmoid and distal descending colon. Sca ttered diverticuli are noted. Findings most likely reflect acute colitis/diverticulitis. Recommend c lose follow-up to resolution to exclude any underlying neoplasm. Other chronic-appearing findings as above.
--- NOTE | 2025-01-29 20:17 | ED.PDOC ---
GI ASSESSMENT HPI Comments HPI: Poor Historian. 69-year-old male with a history of Crohn's disease and diverticulitis presents to emergency department for two week history of left-sided abdominal pain nonradiating constant with the associated rectal bleeding. Patient follows with Dr. Obregon and is on medications for Crohn's disease. Patient feels weak and have some nausea and vomiting nonbilious nonbloody. Denies any fever. Patient denies any allergies. Past Medical History: Diverticulitis, Crohn's disease, prostate cancer in remission Past Surgical History: Vitals: temperature of 99.2F pulse of 63 respiratory rate of 16 blood pressure of 124/71 SpO2 of 97%RA REVIEW OF SYSTEMS: CONSTITUTIONAL: Denies acute: fever, diaphoresis, chills, HEAD: Denies acute: headache, photophobia Eyes: Denies acute: Double vision, vision loss, eye pain, eye discharge. EARS: Denies acute: tinnitus, hearing loss, ear discharge, ear pain, THROAT: Denies acute: sore throat, swelling, difficulty swallowing , pain with swallowing, change in voice. NECK: Denies acute: neck pain, neck swelling, stiff neck. HEART: Denies acute : chest pain, palpitations, LUNGS: Denies acute: SOB, wheezing, cough, hemoptysis ABDOMEN: Denies acute: , melena , hematemesis, SKIN: Denies acute: rash, redness, lesions, itchiness. EXTREMITIES: Denies acute: calf pain, numbness, tingling, weakness, denies pain in extremity. Denies acute: Low back pain. Neuro: Denies acute: focal neurological deficit, motor or sensory focal neurological deficit, tremors, seizure like activity, confusion, dizziness, change in mental status, loss of bowel or bladder function, cauda equina like symptoms. : Denies acute: dysuria, hematuria, flank pain, increase in urinary frequency. PSYCH: Denies acute: hallucination, suicidal ideation, homicidal ideation. PHYSICAL EXAM: General: ---[id number]-----acute distress, awake and alert. Head: normocephalic, atraumatic. Neck: supple, trachea is midline, no swelling. Throat: Normal phonation. Eyes:, no erythema, no purulent discharge, no proptosis, no icterus. Heart: regular rate, regular rhythm, no significant murmur appreciated. Lungs: no apparent respiratory distress, Able to speak in full sentences. No wheezing, no rhonchi, no crackles. No stridors Clear to auscultation bilaterally. Abdomen: Left-sided abdominal tender to palpation, non distended, soft, no guarding, no rebound, + bowel sounds. Neuro: Awake, Alert, oriented to name, self, situation, follows commands GCS=15. Speech is normal. Skin: no petechia, no purpura, no cyanosis, non-pale, not jaundice. Lower extremities: --no - Pitting edema no deformity, no focal swelling, no calf TTP. Makes eye contact. Moves all four extremities ED COURSE: DISCLAIMER: This medical document was created using an electronic medical record system with voice recognition software and computerized dictation system. Although this document has been carefully reviewed, there might still be some phonetic and typographical errors. Occasional wrong-word or "sound-alike" substitutions may have occurred due to the inherent limitations of voice recognition software. These areas are purely typographical due to imperfections of the software programs and do not reflect any compromise in the patient's medical care. Please read the chart carefully and recognize, using context, where these substitutions have occurred. Chief Complaint: Abdominal Pain Time Seen by MD: 18:09 Primary Care Provider: Jaquan Butt Reviewed Notes: Allergies Allergies: Coded Allergies: NO KNOWN ALLERGIES (Unverified , 03/04/22) Home Meds Reported Medications Ferrous Sulfate (Ferosul) 325 Mg Tab, 325 MG PO BID, TAB 01/30/25 Montelukast Sodium (MONTELUKAST SODIUM) 10 Mg Tab, 1 TAB PO DAILY 01/30/25 Fluticasone Propionate (Nasal) (Fluticasone Propionate) 50 Mcg/Act Spr, 1 SPRAY CRISTOFER 01/30/25 Azathioprine (Imuran) 50 Mg Tab, 1 TAB PO DAILY, #30 TAB 3 Refills 07/24/24 Tofacitinib Citrate (Xeljanz) 10 Mg Tab, 10 MG PO EOD, TAB 07/24/24 Mesalamine (Lialda) 1.2 Gm Tab, 1.2 GM PO DAILY, TAB 07/24/24 Information Source: Patient Mode of Arrival: EMS Past Medical History PAST MEDICAL HISTORY: Cancer, HTN Family History Family History: Reviewed,noncontributory to illness Social History Smoker: Non-Smoker Alcohol: Rarely Drugs: Denies Drug Use Lives In: Home Was a procedure done? Was a procedure done?: No GI differential Dx Differential Diagnosis: Other (DDX include but not limited to diverticulitis, colitis, gastroenteritis, acute abdomen, SBO, enteritis, constipation, volvulus, appendicitis, Gallbladder disease, choledocolithiasis, ascending cholangitis, pancreatitis, intraAbdominal mass/neoplasm, hepatitis, UTI, pylonephritis, kidney stone, aneurysm, dissection, Inflammatory bowel disease, gastroparesis, ischemic bowel.) X-Ray, Labs, Meds, VS Vital Signs Date Time Temp Pulse Resp B/P (MAP) Pulse Ox O2 Delivery O2 Flow Rate FiO2 01/29/25 18:10 99.2 63 16 124/71 97 99.2 Lab Test 01/29/25 18:45 Range/Units White Blood Count 4.1 L 4.4-10.8 10^3/uL Red Blood Count 4.17 L 4.5-5.90 10^6/uL Hemoglobin 11.4 L 13.5-17.5 g/dL Hematocrit 33.6 L 41.0-53.0 % Mean Corpuscular Volume 80.6 80.0-100.0 fL Mean Corpuscular Hemoglobin 27.3 L 28.0-32.0 pg Mean Corpuscular Hemoglobin Concent 33.8 32.0-36.0 g/dL Red Cell Distribution Width 15.6 H 11.8-14.3 % Platelet Count 396 140-450 10^3/uL Mean Platelet Volume 6.9 6.9-10.8 fL Neutrophils (%) (Auto) 67.2 37.0-80.0 % Lymphocytes (%) (Auto) 7.0 L 10.0-50.0 % Monocytes (%) (Auto) 24.8 H 0.0-12.0 % Eosinophils (%) (Auto) 0.4 0.0-7.0 % Basophils (%) (Auto) 0.6 0.0-2.0 % Neutrophils # (Auto) 2.7 1.6-8.6 10 ^3/uL Lymphocytes # (Auto) 0.3 L 0.4-5.4 10 ^3/uL Monocytes # (Auto) 1.0 0-1.3 10 ^3/uL Eosinophils # (Auto) 0 0-0.8 10 ^3/uL Basophils # (Auto) 0 0-0.2 10 ^3/uL Nucleated Red Blood Cells 0.0 % Prothrombin Time 11.5 9.3-11.8 sec Prothrombin Time INR 1.09 0.9-1.15 Activated Partial Thromboplast Time 33.8 24.5-34.5 SEC Sodium Level 135 L 136-145 mmol/L Potassium Level 3.8 3.5-5.1 mmol/L Chloride Level 102 98-107 mmol/L Carbon Dioxide Level 23 20-31 mmol/L Anion Gap 10 5-15 Blood Urea Nitrogen 13 9-23 mg/dL Creatinine 1.05 0.700-1.30 mg/dL Glomerular Filtration Rate Calc 77 >90 mL/min BUN/Creatinine Ratio 12.4 10.0-20.0 Serum Glucose 101 74-106 mg/dL Lactic Acid Level 0.9 0.4-2.0 mmol/L Calcium Level 8.1 L 8.7-10.4 mg/dL Iron Level 9 L 65-175 ug/dL Total Iron Binding Capacity 182 L 250-425 ug/dL Percent Iron Saturation 4.9 L 20-55 % Total Bilirubin 0.5 0.2-1.0 mg/dL Aspartate Amino Transferase (AST) 10 L 13-40 U/L Alanine Aminotransferase (ALT) < 9 7-40 U/L Alkaline Phosphatase 59 46-116 U/L Troponin I High Sensitivity 3 L </=54 ng/L Total Protein 6.3 5.7-8.2 g/dL Albumin 3.6 3.2-4.8 g/dL Lipase 22 12-53 U/L Thyroid Stimulating Hormone (TSH) 1.50 0.55-4.78 uIU/mL Time of 1ST Reevaluation: 00:00 Reevaluation 1ST: Unchanged Patient Education/Counseling: Diagnosis, Treatment, Other (need for admission ) Family Education/Counseling: Diagnosis, Treatment, Other (need for admission ) Comments MDM: patient presented with the above HPI.----abdominal pain--workup was initiated. patient was found with the above mentioned diagnosis. the following medications were ordered: please refer to order lists of meds and tests obtained by myself Dr. Leonardo. Patient ED course and VS have been stabilized. Patient has been reassessed in the ED and remained in a stable condition. Pertinent incidental findings were discussed with the patient and/or family. Patient/family voices understanding and is agreeable with plan. Patient has been observed in the ED adequate length of time to insure i mprovement/stability. Escalation of care considered: Consideration of escalation to observation or admission Patient was given sick from Flagyl and Zofran and fluids. Patient was ADMITTED to the medicine team for further evaluation and treatment of their presentation. All the reports of any imaging studies that were ordered by myself were reviewed by myself. SEPSIS Sepsis Screen Date sepsis recognized/suspect: Jan 29, 2025 Time Sepsis recognized/suspect: 1804 Recent Procedure: No On Antibiotic Therapy: No Respiratory Rate >20: No Heart Rate >90: No Temp<36 C (96.8 F) or >38.3 C: No SBP <90 or MAP <65 mmHG: No New Acute Mental Status Change: No Is the patient on CPAP, BIPAP,: No Physician Orders [employer] Room Worker (01/29/25 ) Electrocardigram (01/29/25 18:26) Ct Ab Pel Wo Con-No Oral Or Iv (01/29/25 18:26) Vital Signs Date Time Temp Pulse Resp B/P (MAP) Pulse Ox O2 Delivery O2 Flow Rate FiO2 01/29/25 18:10 99.2 63 16 124/71 97 99.2 Laboratory Tests Test 01/29/25 18:45 Lactic Acid Level 0.9 mmol/L (0.4-2.0) White Blood Count 4.1 10^3/uL (4.4-10.8) L Departure 1 Departure Time of Disposition: 20:16 Impression: Primary Impression: Non-specific colitis Additional Impressions: Diverticulitis of intestine Crohn's disease Abdominal pain Rectal bleeding Disposition: ADMITTED INPATIENT Admit to: Tele Condition: Guarded Discharged With: Self Critical Care Note Critical Care Time?: Yes (35 min-critical care time only) Heart Score Heart Score: Heart Score Response (Comments) Value History N/A 0 EKG N/A 0 Age N/A 0 Risk Factors N/A 0 Troponin N/A 0 Total 0 I personally scribed for JAQUAN LEONARDO DO ([email or web address]) on 01/29/25 at 20:51. Electronically submitted by Gianni Mdeina ([email or web address]). JAQUAN LEONARDO DO Jan 29, 2025 20:17
[2025-01-29] MEDS ORDERED: DOCUSATE SOD 100 MG CAP PO PRN (20:45)
[2025-01-29] MEDS ORDERED: SODIUM CHLORIDE 0.9% 1,000 ML IV SCH (20:45)
[2025-01-29] MEDS ORDERED: NITROGLYCERIN 0.4 MG SL TAB SL PRN (20:45)
[2025-01-29] MEDS ORDERED: MORPHINE SULFATE INJ 2 MG/ml SYRG IV PRN (20:45)
[2025-01-29] MEDS ORDERED: ACETAMINOPHEN 325 MG TAB PO PRN (20:45)
[2025-01-29 21:19] LABS: INR 1.09 (0.9-1.15); Partial Thromboplastin Time 33.8 SEC (24.5-34.5); Prothrombin Time 11.5 sec (9.3-11.8)
[2025-01-29 22:39] LABS: Iron 9.0 ug/dL (65-175); Total Iron Binding Capacity 182.0 ug/dL (250-425)
[2025-01-29 23:55] LABS: Amphetamine Screen, Urine Neg (NEGATIVE); Barbiturate Scree,Urine Neg (NEGATIVE); Cannabinoid Screen, Urine Pos (NEGATIVE); Opiate Scree,Urine Pos (NEGATIVE); Phencyclidine Screen, Urine Neg (NEGATIVE)
[2025-01-29 23:56] LABS: Benzodiazephine Screen, Urine Neg (NEGATIVE)
[2025-01-30] VITALS (7 sets, daily range): BP systolic 106–135; BP diastolic 62–74; PULSE 75–97; RESP 16–18; TEMP 97.9–98.9; O2SAT 93–97
--- NOTE | 2025-01-30 00:01 | DVHHPRES ---
History of Present Illness Resident Creating Document: VINCE GRAHAM RESIDENT History of Present Illness Charles Juarez who is 69-year-old male with past medical history of ulcerative colitis, diverticulitis, iron-deficiency anemia, history of prostate cancer, came to the ED with chief complaints of left lower quadrant abdominal pain which was 10/10 in intensity, constant, nonradiating, no aggravating or relieving factors, associated with 1 episode of mucus appearing vomiting and bright red blood in the stool. Patient states that since last year May his colitis temple s been worsening and he has been having flare-ups on and off with bloody stools but this is the worst episode he had since last year. Patient takes mesalamine, azathioprine,Xelijaniz as prescribed but has not been taking them since 3 days. Patient underwent a colonoscopy in July 2024. Patient also reports 20 LB weight loss since 1 month and has decreased appetite, metallic taste in his mouth. States he saw blood in his urine. CT abdomen showed Thickening and pericolonic inflammatory change involving the sigmoid and distal descending colon. Scattered diverticuli are noted. Findings most likely reflect acute colitis/diverticulitis. GI is consulted. Patient will be admitted for further evaluation and management. Past Medical history: Ulcerative colitis, diverticulitis, iron deficiency anemia, h/o prostate cancer Past Surgical history: Status post prostatectomy, rotator cuff surgery, hand surgery the stiffness Family History: Reviewed, noncontributory Social history: Quit smoking 20 years ago, drinks occasionally, and cannabis use Lives with: Family PCP:Dr. Pugh Review of Systems Constitutional: Yes: Weakness, Malaise, Other (20 lb weight loss) Eyes: No: Pain, Vision change, Conjunctivae inflammation, Eyelid inflammation, Other, Redness ENT: No: Ear pain, Ear discharge, Nose pain, Nose discharge, Nose congestion, Mouth pain, Mouth swelling, Throat pain, Throat swelling, Other Cardiovascular: No: Chest Pain, Palpitations, Orthopnea, Paroxysmal Noc. Dyspnea, Edema, Lt Headedness, Other Gastrointestinal: Nausea, Vomiting, Abdominal Pain Genitourinary: No Dysuria, No Frequency, No Incontinence, No Hematuria, No Retention, No Other Musculoskeletal: No: other, neck pain, shoulder pain, arm pain, back pain, hand pain, leg pain, foot pain Skin: No: Rash, Lesions, Jaundice, Bruising, Other Neurological: No: Weakness, Numbness, Incoordination, Change in speech, Confusion, Seizures, Other Allergies: Coded Allergies: NO KNOWN ALLERGIES (Unverified , 03/04/22) Medications Current Medications Medications Dose Ordered Sig/Aramis Route Start Time Stop Time Status Last Admin Dose Admin Sodium Chloride 1,000 ml @ 60 mls/hr [id number] IV 01/29/25 20:45 Acetaminophen 325 mg Q4HP PRN PO 01/29/25 20:45 Acetaminophen/ Hydrocodone Bitart 1 tab Q4HP PRN PO 01/29/25 20:45 Ondansetron HCl 4 mg Q4HP PRN IV 01/29/25 20:45 Docusate Sodium 100 mg BIDPRN PRN PO 01/29/25 20:45 Morphine Sulfate 2 mg Q4HPRN PRN IV 01/29/25 20:45 Nitroglycerin 0.4 mg Q5MINP PRN SL 01/29/25 20:45 Morphine Sulfate 2 mg Q30M PRN IV 01/29/25 20:45 Exam Vital Signs Vital Signs Date Time Temp Pulse Resp B/P (MAP) Pulse Ox O2 Delivery O2 Flow Rate FiO2 01/29/25 18:10 99.2 63 16 124/71 97 99.2 Exam General: Patient alert and oriented in person, place and time. Patient following commands. Moderate distress, weak HEENT: Normocephalic, atraumatic, moist mucous membranes Respiratory/pulmonary: Clear lungs bilaterally, vesicular murmurs present in almost all lung castro, no associated crackles or wheezes. Cardiovascular: Normal heart sounds S1 and S2 with no associated murmurs Abdomen: Left lower quadrant tenderness to palpation Extremities: There is no peripheral edema present at the lower extremities. Peripheral Pulses: 3+ Radial (R). 3+ Radial (L). 3+ Dorsalis pedis (R). 3+ Dorsalis pedis(L) Skin: No rashes or pruritus, there is no sacral edema present at this time. Neurological: Intact cranial nerves with no focal neurologic deficits Labs/Xrays Labs Test 01/29/25 22:04 01/29/25 21:20 01/29/25 18:45 Range/Units Troponin I High Sensitivity 5 </=54 ng/L White Blood Count 4.1 L 4.4-10.8 10^3/uL Red Blood Count 4.17 L 4.5-5.90 10^6/uL Hemoglobin 11.4 L 13.5-17.5 g/dL Hematocrit 33.6 L 41.0-53.0 % Mean Corpuscular Volume 80.6 80.0-100.0 fL Mean Corpuscular Hemoglobin 27.3 L 28.0-32.0 pg Mean Corpuscular Hemoglobin Concent 33.8 32.0-36.0 g/dL Red Cell Distribution Width 15.6 H 11.8-14.3 % Platelet Count 396 140-450 10^3/uL Mean Platelet Volume 6.9 6.9-10.8 fL Neutrophils (%) (Auto) 67.2 37.0-80.0 % Lymphocytes (%) (Auto) 7.0 L 10.0-50.0 % Monocytes (%) (Auto) 24.8 H 0.0-12.0 % Eosinophils (%) (Auto) 0.4 0.0-7.0 % Basophils (%) (Auto) 0.6 0.0-2.0 % Neutrophils # (Auto) 2.7 1.6-8.6 10 ^3/uL Lymphocytes # (Auto) 0.3 L 0.4-5.4 10 ^3/uL Monocytes # (Auto) 1.0 0-1.3 10 ^3/uL Eosinophils # (Auto) 0 0-0.8 10 ^3/uL Basophils # (Auto) 0 0-0.2 10 ^3/uL Nucleated Red Blood Cells 0.0 % Prothrombin Time 11.5 9.3-11.8 sec Prothrombin Time INR 1.09 0.9-1.15 Activated Partial Thromboplast Time 33.8 24.5-34.5 SEC Sodium Level 135 L 136-145 mmol/L Potassium Level 3.8 3.5-5.1 mmol/L Chloride Level 102 98-107 mmol/L Carbon Dioxide Level 23 20-31 mmol/L Anion Gap 10 5-15 Blood Urea Nitrogen 13 9-23 mg/dL Creatinine 1.05 0.700-1.30 mg/dL Glomerular Filtration Rate Calc 77 >90 mL/min BUN/Creatinine Ratio 12.4 10.0-20.0 Serum Glucose 101 74-106 mg/dL Lactic Acid Level 0.9 0.4-2.0 mmol/L Calcium Level 8.1 L 8.7-10.4 mg/dL Iron Level 9 L 65-175 ug/dL Total Iron Binding Capacity 182 L 250-425 ug/dL Percent Iron Saturation 4.9 L 20-55 % Total Bilirubin 0.5 0.2-1.0 mg/dL Aspartate Amino Transferase (AST) 10 L 13-40 U/L Alanine Aminotransferase (ALT) < 9 7-40 U/L Alkaline Phosphatase 59 46-116 U/L Total Protein 6.3 5.7-8.2 g/dL Albumin 3.6 3.2-4.8 g/dL Lipase 22 12-53 U/L Thyroid Stimulating Hormone (TSH) 1.50 0.55-4.78 uIU/mL SEPSIS Sepsis Screen Date sepsis recognized/suspect: Jan 29, 2025 Time Sepsis recognized/suspect: 1804 Recent Procedure: No On Antibiotic Therapy: No Respiratory Rate >20: No Heart Rate >90: No Temp<36 C (96.8 F) or >38.3 C: No SBP <90 or MAP <65 mmHG: No New Acute Mental Status Change: No Is the patient on CPAP, BIPAP,: No Physician Orders Lap Runner (01/29/25 ) Urinalysis (01/29/25 18:26) Electrocardigram (01/29/25 18:26) Ct Ab Pel Wo Con-No Oral Or Iv (01/29/25 18:26) Troponin-I Hs (01/29/25 21:26) Admit (01/29/25 20:34) Allergies (01/29/25 20:34) Code Status (01/29/25 20:34) Sodium Chloride 0.9% (01/29/25 20:45) Acetaminophen Tablet (Tylenol Tablet) (01/29/25 20:45) Hydrocodone-Acet 5/325mg Tab ([place] 5/32 (01/29/25 20:45) Ondansetron Hcl (Zofran) (01/29/25 20:45) Docusate Sodium Capsule (Colace Capsule) (01/29/25 20:45) Complete Blood Count (01/30/25 04:00) Comprehensive Metabolic Panel (01/30/25 04:00) Condition: Serious (01/29/25 20:34) Bedrest With Bathroom Privileg (01/29/25 20:34) Morphine Sulfate Injection (01/29/25 20:45) Nitroglycerin Sublingual (Ntrostat Subli (01/29/25 20:45) Morphine Sulfate Injection (01/29/25 20:45) Oxygen By Nasal Cannula (01/29/25 20:34) Stat Ekg For Chest Pain (01/29/25 20:34) Notify Md Of Changes From Base (01/29/25 20:34) Suspect Artist Supervisor For 24 Hours (01/29/25 20:34) Emergency Dysrhythmia Protocol (01/29/25 20:34) Rhythm Strips Once Every Shift (01/29/25 20:34) Urinalysis (01/29/25 20:44) Drug Screen (01/29/25 20:44) Stool Occult Blood (01/29/25 20:44) Stool Wbc (01/29/25 20:44) Stool Bacterial Culture (01/29/25 20:44) Vital Signs Date Time Temp Pulse Resp B/P (MAP) Pulse Ox O2 Delivery O2 Flow Rate FiO2 01/29/25 18:10 99.2 63 16 124/71 97 99.2 Laboratory Tests Test 01/29/25 18:45 Lactic Acid Level 0.9 mmol/L (0.4-2.0) White Blood Count 4.1 10^3/uL (4.4-10.8) L Assessment/Plan Assessment/Plan # acute on chronic ulcerative colitis # acute colitis/diverticulitis # history of 1+ internal hemorrhoid -CT abdomen shows Thickening and pericolonic inflammatory change involving the sigmoid and distal descending colon. Scattered diverticuli are noted. Findings most likely reflect acute colitis/diverticulitis. Recommend close follow-up to resolution to exclude any underlying neoplasm. - consulted GI - IV fluids - patient started on IV Zosyn - ordered blood culture - ordered stool occult blood - stool WBC, culture - ordered C diff, - ordered CRP ESR - Colonoscopy done on 07/28/2024 and showed Patient had some residual sigmoid inflammation and sigmoiditis with some hyperemia erythema superficial mucopus and there were multiple pseudopolyps in this area from which biopsies were obtained - biopsy results showed no dysplasia or malignancy # Normocytic anemia - Iron panel ordered, - ferritin ordered # history of prostate cancer - status post prostatectomy - in remission # chronic leukopenia - possible side effect of azathioprine # history of erectile dysfunction -continue home medications # history of allergic rhinitis # history of seasonal allergies - fluticasone spray # polysubstance abuse - patient counseled on cessation of alcohol, cannabis use for 13 minutes diet:NPO Goals of care addressed with the patient for more than 37 minutes: Full code status Case discussed with , patient and nurse Plan discussed with: Patient My Orders Orders - VINCE GRAHAM RESIDENT Procedure Category Date Status Time Admit ADMIT 01/29/25 Transmitted 20:34 Allergies KI 01/29/25 In Process 20:34 Code Status CODE 01/29/25 Transmitted 20:34 Sodium Chloride 0.9% PHA 01/29/25 In Process 20:45 Acetaminophen Tablet PHA 01/29/25 In Process (Tylenol Tablet) 20:45 Hydrocodone-Acet PHA 01/29/25 In Process 5/325mg Tab ([place] 20:45 Ondansetron Hcl PHA 01/29/25 In Process (Zofran) 20:45 Docusate Sodium PHA 01/29/25 In Process Capsule (Colace 20:45 Complete Blood Count LAB 01/30/25 Verified 04:00 Comprehensive LAB 01/30/25 Verified Metabolic Panel 04:00 Condition: Serious KI 01/29/25 In Process 20:34 Bedrest With Bathroom KI 01/29/25 In Process Privileg 20:34 Morphine Sulfate PHA 01/29/25 In Process Injection 20:45 Nitroglycerin PHA 01/29/25 In Process Sublingual (Ntrostat 20:45 Morphine Sulfate PHA 01/29/25 In Process Injection 20:45 Oxygen By Nasal RT 01/29/25 Transmitted Cannula 20:34 Stat Ekg For Chest KI 01/29/25 In Process Pain 20:34 Notify Of Changes KI 01/29/25 In Process From Base 20:34 Suspect Artist Supervisor For KI 01/29/25 In Process 24 Hours 20:34 Emergency Dysrhythmia KI 01/29/25 In Process Protocol 20:34 Rhythm Strips Once KI 01/29/25 In Process Every Shift 20:34 Urinalysis LAB 01/29/25 In Process 20:44 Drug Screen LAB 01/29/25 In Process 20:44 Stool Occult Blood LAB 01/29/25 Logged 20:44 Stool Wbc LAB 01/29/25 Logged 20:44 Stool Bacterial ANIKA 01/29/25 Uncollected Culture 20:44 Date of Service: Jan 30, 2025 Billing Provider: SUSAN CASTRO MD Common Visit Codes: [id number] INP/OBS CARE (HIGH) Secondary Visit Codes: [id number] CARE PLAN 30 MINUTES VINCE GRAHAM RESIDENT Jan 30, 2025 00:01
[2025-01-30 00:08] LABS: Urine Protein, UAD 1+ (Negative)
[2025-01-30] MEDS ORDERED: MONT-8 PO (00:40)
[2025-01-30] MEDS ORDERED: FLUT50SP NAS (00:40)
[2025-01-30] MEDS: ONDANSETRON HCL 4 MG/2 ML VIAL IV ONE (00:59)
[2025-01-30] MEDS: MORPHINE SULFATE INJ 2 MG/ml SYRG IV PRN (01:00)
[2025-01-30 01:49] LABS: Cocaine Screen, Urine Neg (NEGATIVE)
[2025-01-30] MEDS: CIPROFLOXACIN 400MG/200ML 200 ML IV ONE (04:00)
[2025-01-30] MEDS: LACTATED RINGER'S 1,000 ML IV SCH ×2 (04:02→11:08)
[2025-01-30 04:47] LABS: Hematocrit 33.5 % (41.0-53.0); Hemoglobin 11.2 g/dL (13.5-17.5); Mean Corpuscular Hemoglobin 27.0 pg (28.0-32.0); Mean Corpuscular Volume 80.6 fL (80.0-100.0)
[2025-01-30 05:00] LABS: Albumin 3.8 g/dL (3.2-4.8); Alkaline Phosphatase 61 U/L (46-116); Anion Gap 11 (5-15); BUN/Creatinine Ratio 14.0 (10.0-20.0); Bilirubin, Total 0.4 mg/dL (0.2-1.0); Blood Urea Nitrogen 15 mg/dL (9-23); Carbon Dioxide 22 mmol/L (20-31); Chloride 103 mmol/L (98-107); Glucose 93 mg/dL (74-106); Potassium 3.8 mmol/L (3.5-5.1); Sodium 136 mmol/L (136-145); Total Protein 6.6 g/dL (5.7-8.2)
[2025-01-30 05:22] LABS: Alanine Aminotransferase < 9 U/L (7-40); Calcium 8.3 mg/dL (8.7-10.4)
[2025-01-30 05:55] LABS: Total Cells Counted 100.0 (100)
[2025-01-30] MEDS: PIPERACILLIN-TAZOB 3.375GM 100 ML IV SCH (06:05)
[2025-01-30] MEDS: MONTELUKAST SODIUM 10 MG TAB PO SCH (09:35)
[2025-01-30] MEDS: FLUTICASONE PROP NASAL SPR 0.05 % (50MCG) 16GM EACHNOSTRI SCH (10:00)
[2025-01-30] MEDS: MESALAMINE 400mg Delayed Release Cap PO SCH (14:04)
[2025-01-30] MEDS: methylPREDNISolone SOD SUCC 500 MG in SODIUM CHL 0.9% 100 ML IV ONE (14:05)
--- NOTE | 2025-01-30 14:31 | DVHINCON2 ---
GI Consult Consult Note GI consult note Date of Consultation: 01/30/2025 Chief Complaint: Flare of IBD, known patient to practice Referring Physician: Dr. Yanez H&P: 69-year-old male with past medical history ulcerative colitis, diverticulitis, iron deficiency anemia, prostate cancer admitted with complains of left lower quadrant abdominal pain, pain was 10 on 10 with intensity, and is relieved by pain medications at this time, one episode of vomiting and also has noticed bright red blood in the stool one time. Bowel movement today no melena or red blood in stool. Patient completed Medrol Dosepak on Wednesday [facility]. Status post colonoscopy 07/28/2024 with pathology waiting inflammatory type polyps. Status post EGD 03/04/2022 Dr. Martinez with mild chronic inactive gastritis on pathology Past Medical History: Ulcerative colitis, diverticulitis, iron deficiency anemia, h/o prostate cancer Past Surgical History: Status post prostatectomy, rotator cuff surgery, hand surgery the stiffness Social History: NO smoking, drinking ETOH and use of illegal drugs. Positive marijuana Family History: Noncontributory Review of Systems: Constitutional: no fever, chill, weight loss HEENT: no eye pain, no hearing loss, no oral lesion, no scleral icterus Heart: no chest pain, no chest pressure Lung: no cough, no dyspnea with exertion Abdomen: see HPI Physical exam: General: NAD, AAOX3 Chest: lung castro clear to auscultation Heart: RRR, no murmur Abdomen: non-distended, mild left lower quadrant tenderness to palpation, +BS Labs: Labs Test 01/30/25 11:15 01/30/25 03:32 01/29/25 23:33 01/29/25 22:04 Range/Units Stool for White Cells Many White Blood Count 4.0 L 4.4-10.8 10^3/uL Red Blood Count 4.16 L 4.5-5.90 10^6/uL Hemoglobin 11.2 L 13.5-17.5 g/dL Hematocrit 33.5 L 41.0-53.0 % Mean Corpuscular Volume 80.6 80.0-100.0 fL Mean Corpuscular Hemoglobin 27.0 L 28.0-32.0 pg Mean Corpuscular Hemoglobin Concent 33.5 32.0-36.0 g/dL Red Cell Distribution Width 15.4 H 11.8-14.3 % Platelet Count 417 140-450 10^3/uL Mean Platelet Volume 7.3 6.9-10.8 fL Neutrophils (%) (Auto) 37.0-80.0 % Lymphocytes (%) (Auto) 10.0-50.0 % Monocytes (%) (Auto) 0.0-12.0 % Basophils (%) (Auto) 0.0-2.0 % Neutrophils # (Auto) 1.6-8.6 10 ^3/uL Lymphocytes # (Auto) 0.4-5.4 10 ^3/uL Monocytes # (Auto) 0-1.3 10 ^3/uL Differential Total Cells Counted 100.0 100 Neutrophils % (Manual) 61 37.0-80.0 Band Neutrophils % (Manual) 3 Lymphocytes % (Manual) 11 10.0-50.0 Monocytes % (Manual) 25 H 0-12 Eosinophils % (Manual) 0 0-7 Basophils % (Manual) 0 0.0-2.0 Metamyelocytes % (manual) 0 Myelocytes % (Manual) 0 Promyelocytes % (Manual) 0 Blast Cells % (Manual) 0 Reactive Lymphocytes 0 Platelet Estimate Adequate Erythrocyte Sedimentation Rate 72 H 0-20 mm/hr Sodium Level 136 136-145 mmol/L Potassium Level 3.8 3.5-5.1 mmol/L Chloride Level 103 98-107 mmol/L Carbon Dioxide Level 22 20-31 mmol/L Anion Gap 11 5-15 Blood Urea Nitrogen 15 9-23 mg/dL Creatinine 1.07 0.700-1.30 mg/dL Glomerular Filtration Rate Calc 75 >90 mL/min BUN/Creatinine Ratio 14.0 10.0-20.0 Serum Glucose 93 74-106 mg/dL Hemoglobin A1c 5.5 <5.7 % A1C Calcium Level 8.3 L 8.7-10.4 mg/dL Magnesium Level 2.0 1.6-2.6 mg/dL Ferritin 107.6 22-322 ng/mL Total Bilirubin 0.4 0.2-1.0 mg/dL Aspartate Amino Transferase (AST) 9 L 13-40 U/L Alanine Aminotransferase (ALT) < 9 7-40 U/L Alkaline Phosphatase 61 46-116 U/L C-Reactive Protein High Sensitivity 13.09 H <1.0 mg/dL B-Type Natriuretic Peptide 10.50 0-100 pg/mL Total Protein 6.6 5.7-8.2 g/dL Albumin 3.8 3.2-4.8 g/dL Troponin I High Sensitivity < 3 L </=54 ng/L Urine Color Kenzie H Yellow Urine Clarity Hazy H Clear Urine pH 6.0 5.0-9.0 Urine Specific [place] 1.020 1.001-1.035 Urine Protein 1+ H Negative Urine Ketones 3+ H Negative Urine Blood 3+ H Negative /uL Urine Nitrite Negative Negative Urine Bilirubin Negative Negative Urine Urobilinogen Normal Negative mg/dL Urine Leukocyte Esterase Negative Negative /uL Urine RBC 28 0 - 3 /hpf Urine Microscopic WBC 3 0-3 /HPF Urine Squamous Epithelial Cells Few <5 /hpf Urine Bacteria None seen None Seen /hpf Urine Mucus Many None Seen Urine Glucose Normal Normal mg/dL Urine Opiates Screen Pos NEGATIVE Urine Fentanyl Screen Neg NEGATIVE Urine Barbiturates Screen Neg NEGATIVE Urine Phencyclidine Screen Neg NEGATIVE Urine Amphetamines Screen Neg NEGATIVE Urine Benzodiazepines Screen Neg NEGATIVE Urine Cocaine Screen Neg NEGATIVE Urine Cannabinoids Screen Pos NEGATIVE Test 01/29/25 18:45 Range/Units Eosinophils (%) (Auto) 0.4 0.0-7.0 % Eosinophils # (Auto) 0 0-0.8 10 ^3/uL Basophils # (Auto) 0 0-0.2 10 ^3/uL Nucleated Red Blood Cells 0.0 % Prothrombin Time 11.5 9.3-11.8 sec Prothrombin Time INR 1.09 0.9-1.15 Activated Partial Thromboplast Time 33.8 24.5-34.5 SEC Lactic Acid Level 0.9 0.4-2.0 mmol/L Iron Level 9 L 65-175 ug/dL Total Iron Binding Capacity 182 L 250-425 ug/dL Percent Iron Saturation 4.9 L 20-55 % Lipase 22 12-53 U/L Thyroid Stimulating Hormone (TSH) 1.50 0.55-4.78 uIU/mL Imaging: CT abdomen pelvis IMPRESSION: Thickening and pericolonic inflammatory change involving the sigmoid and distal descending colon. Scattered diverticuli are noted. Findings most likely reflect acute colitis/diverticulitis. Recommend close follow-up to resolution to exclude any underlying neoplasm. Other chronic-appearing findings as above. Assessment: Abdominal pain Acute colitis/diverticulitis Ulcerative colitis Anemia Plan: Discussed with Dr. Salisbury IV antibiotics Clear liquid diet Mesalamine Solu-Medrol Stool studies pending We will continue to monitor patient Discussed plan with patient and RN Thank you for this consult Date of Service: Jan 30, 2025 Billing Provider: VASILE GONZALEZ Common Visit Codes: CONSULT ONLY Consultation Codes: [id number] CONSULT <60MIN VASILE GONZALEZ Jan 30, 2025 14:31
--- NOTE | 2025-01-30 16:01 | DVHPNRES ---
Progress Note Date Seen: Jan 30, 2025 Resident Creating Document: TERRENCE PIERCE RESIDENT Medical Necessity Reason Pt with a Central, PICC or Fol: No Subjective Review of Systems Patient is 61 years old male with a past medical history of ulcerative colitis, diverticulitis, ONEAL, prostate carcinoma, status post prostatectomy in 2009 came with a complaint of abdominal pain. As per patient he has been having worsening abdominal pain, for past 5-6 weeks in the left lower quadrant, crampy, continuous, some relief with the pain medication which is getting worse over last 2 weeks, 03/16. Patient reported diarrhea almost 10-20 times a day, with the occasional blood with the stool. Patient also reported nausea, history of not regular diet eating due to fear of having nausea or vomiting if he eats. Mostly eating liquid diet or yogurt. Patient reported losing almost 20 lb over 1 month. Patient recently completed Medrol Dosepak and ciprofloxacin on Wednesday [facility]. Patient had colonoscopy done on 07/28/2024 which revealed residual sigmoid inflammation, sigmoid polyp 1-1.5 cm. Initial lab workup revealed WBC 4.1, hemoglobin 11.4, RDW 15.6, ESR 72, CRP 13.9, lipase 32, serum iron 9, TIBC 182, saturation 4.9, ferritin 107.6. UDS positive for cannabinoids. CT abdomen and pelvis revealed- Thickening and pericolonic inflammatory change involving the sigmoid and distal descending colon. Scattered diverticuli are noted. Findings most likely reflect acute colitis/diverticulitis. Recommend close follow-up to resolution to exclude any underlying neoplasm. PMH- ulcerative colitis, diverticulitis, idea, prostate carcinoma, status post prostatectomy in 2009 PSH- Status post prostatectomy, rotator cuff surgery, hand surgery the stiffness, status post left hip arthroplasty Allergy- NKDA Personal History/ Social History-quit smoking 20 years before, occasional alcoholic, use cannabinoids. Patient was seen today at the bedside. Cardiovascular- deny acute chest pain or shortness of breath or cough or palpitation Respiratory denies cough or short of breath or wheezing Musculoskeletal-denies acute joint swelling or tenderness or redness Neurological- denies acute dysarthria, dysphagia, change in vision Psychiatry- denies depression or SI or HI Skin- denies acute rash or purpura 01/30/2025- Patient was seen today at bedside. Labs and chart reviewed. Patient reported ongoing nausea but improved, with ongoing abdominal pain. Patient was seen by Gastroenterology, recommended Solu-Medrol, mesalamine, IV antibiotics. Pending stool for Clostridium difficile toxin, stool ova and parasite, stool culture. Objective vital signs Vital Sign Date Time Temp Pulse Resp B/P (MAP) Pulse Ox O2 Delivery O2 Flow Rate FiO2 01/30/25 14:14 90 18 104/63 01/30/25 13:00 98.7 96 98.7 01/30/25 08:40 Room Air* 0 21 medications Current Medications Medications Dose Ordered Sig/Aramis Route Start Time Stop Time Status Last Admin Dose Admin Acetaminophen 325 mg Q4HP PRN PO 01/29/25 20:45 Acetaminophen/ Hydrocodone Bitart 1 tab Q4HP PRN PO 01/29/25 20:45 Ondansetron HCl 4 mg Q4HP PRN IV 01/29/25 20:45 Morphine Sulfate 2 mg Q4HPRN PRN IV 01/29/25 20:45 01/30/25 13:44 2 MG Nitroglycerin 0.4 mg Q5MINP PRN SL 01/29/25 20:45 Piperacillin Sod/ Tazobactam Sod 100 ml @ 25 mls/hr Q8HR IV 01/30/25 00:30 01/30/25 13:38 25 MLS/HR Azathioprine 50 mg DAILY PO 01/30/25 10:00 Patient Own Medication 10 mg EOD PO 01/30/25 10:00 Hold Fluticasone Propionate 1 mcg DAILY EACHNOSTRI 01/30/25 10:00 Montelukast Sodium 10 mg DAILY PO 01/30/25 10:00 Lactated Ringer's 1,000 ml @ 110 mls/hr Q9H6M IV 01/30/25 11:00 01/30/25 11:08 110 MLS/HR Mesalamine 800 mg TID PO 01/30/25 14:00 01/30/25 14:04 800 MG Patient Own Medication 1.2 gm BID PO 01/30/25 22:00 Examination General examination- awake, alert, oriented HEENT- PEERLA, no acute nasal discharge Cardiovascular- S1-S2 audible, rate and rhythm regular, no murmur Respiratory- CTAB, no wheeze or rhonchi Gastrointestinal-tenderness in the left lower abdomen++, + bowel sound Musculoskeletal-no acute joint swelling or tenderness or redness Lower extremity- no leg edema Neurological- cranial nerves intact, no acute dysarthria or dysphagia Psychiatry- denies depression or SI or HI Skin- no acute rash or purpura laboratory and microbiology Laboratory Tests 01/30/25 03:32 Test 01/30/25 03:32 Range/Units Serum Glucose 93 74-106 mg/dL Problem List/Assessment/Plan Problem List/Assessment/Plan Assessment and plan # acute on chronic abdominal pain # acute bloody diarrhea # suspected acute on chronic ulcerative colitis/diverticulitis # rule out Clostridium difficile colitis # history of 1+ internal hemorrhoid -- Colonoscopy done on 07/28/2024 and showed Patient had some residual sigmoid inflammation and sigmoiditis with some hyperemia erythema superficial mucopus and there were multiple pseudopolyps in this area from which biopsies were obtained - biopsy results showed no dysplasia or malignancy -status post gastroenterology consult -continue Zosyn as prescribed Continue IV lactic green endorsed solution 100 mL/hour -pending stool culture, blood culture, stool for ova and parasite, stool for Clostridium difficile toxin # prostatic carcinoma, status post prostatectomy in 2009 -no acute sign or symptom of retention of urine -monitoring clinically # iron-deficiency anemia -iron supplement as prescribed # substance abuse cannabinoids -patient is counseled about the effect of substance abuse on health Goals of care, Code status ; full code, discussed with >15 minutes PUD prophylaxis: Pantoprazole DVT prophylaxis: Lovenox Plan discussed with Dr. Donahue , nursing staff, Total time spent on patient evaluation, chart review, assessment and plan, discussion discussion >35 minutes Plan discussed with: Patient, Other (RN) My Orders My Orders Orders - TERRENCE PIERCE Procedure Category Date Status Time Sequential KI 01/30/25 In Process Compression Device 08:27 Lactated Ringer's PHA 01/30/25 In Process 11:00 Clear Liq Diet DIET 01/30/25 Transmitted Lunch Date of Service: Jan 30, 2025 Billing Provider: MARLEEN DONAHUE MD Common Visit Codes: [id number] INP/OBS CARE(HIGH) Secondary Visit Codes: [id number] CARE PLAN 30 MINUTES TERRENCE PIERCE Jan 30, 2025 16:01 MARLEEN DONAHUE MD Feb 01, 2025 10:47
[2025-01-30] MEDS: PANTOPRAZOLE 40 MG/10 ML VIAL INJ IV ONE (16:39)
[2025-01-30] MEDS: ENOXAPARIN SOD 40 MG/0.4 ML SYRINGE SC ONE (16:40)
[2025-01-30] MEDS ORDERED: FERR325T20 PO (19:25)
[2025-01-31] VITALS (8 sets, daily range): BP systolic 108–152; BP diastolic 69–89; PULSE 52–71; RESP 17–22; TEMP 97.4–98.6; O2SAT 96–100
[2025-01-31 05:18] LABS: Mean Corpuscular Volume 80.3 fL (80.0-100.0)
[2025-01-31 05:20] LABS: Hematocrit 30.7 % (41.0-53.0); Hemoglobin 10.4 g/dL (13.5-17.5); Mean Corpuscular Hemoglobin 27.1 pg (28.0-32.0); Nucleated Red Blood Cells % 0.3 %
[2025-01-31 05:32] LABS: Albumin 3.4 g/dL (3.2-4.8); Alkaline Phosphatase 54 U/L (46-116); Anion Gap 6 (5-15); BUN/Creatinine Ratio 10.6 (10.0-20.0); Bilirubin, Total 0.3 mg/dL (0.2-1.0); Blood Urea Nitrogen 9 mg/dL (9-23); Carbon Dioxide 25 mmol/L (20-31); Chloride 107 mmol/L (98-107); Magnesium 2.0 mg/dL (1.6-2.6); Potassium 4.4 mmol/L (3.5-5.1); Sodium 138 mmol/L (136-145); Total Protein 5.7 g/dL (5.7-8.2)
[2025-01-31 05:38] LABS: Alanine Aminotransferase < 9 U/L (7-40); Calcium 8.6 mg/dL (8.7-10.4); Glucose 163 mg/dL (74-106)
--- NOTE | 2025-01-31 09:20 | DVHPNRES ---
Progress Note Date Seen: Jan 31, 2025 Resident Creating Document: TERRENCE PIERCE RESIDENT Medical Necessity Reason Pt with a Central, PICC or Fol: No Subjective Review of Systems Patient is 61 years old male with a past medical history of ulcerative colitis, diverticulitis, ONEAL, prostate carcinoma, status post prostatectomy in 2009 came with a complaint of abdominal pain. As per patient he has been having worsening abdominal pain, for past 5-6 weeks in the left lower quadrant, crampy, continuous, some relief with the pain medication which is getting worse over last 2 weeks, 03/16. Patient reported diarrhea almost 10-20 times a day, with the occasional blood with the stool. Patient also reported nausea, history of not regular diet eating due to fear of having nausea or vomiting if he eats. Mostly eating liquid diet or yogurt. Patient reported losing almost 20 lb over 1 month. Patient recently completed Medrol Dosepak and ciprofloxacin on Wednesday from Dr. Obregon outpatient clinic. Patient had colonoscopy done on 07/28/2024 which revealed residual sigmoid inflammation, sigmoid polyp 1-1.5 cm. Initial lab workup revealed WBC 4.1, hemoglobin 11.4, RDW 15.6, ESR 72, CRP 13.9, lipase 32, serum iron 9, TIBC 182, saturation 4.9, ferritin 107.6. UDS positive for cannabinoids. CT abdomen and pelvis revealed- Thickening and pericolonic inflammatory change involving the sigmoid and distal descending colon. Scattered diverticuli are noted. Findings most likely reflect acute colitis/diverticulitis. Recommend close follow-up to resolution to exclude any underlying neoplasm. PMH- ulcerative colitis, diverticulitis, idea, prostate carcinoma, status post prostatectomy in 2009 PSH- Status post prostatectomy, rotator cuff surgery, hand surgery the stiffness, status post left hip arthroplasty Allergy- NKDA Personal History/ Social History-quit smoking 20 years before, occasional alcoholic, use cannabinoids. Patient was seen today at the bedside. Cardiovascular- deny acute chest pain or shortness of breath or cough or palpitation Respiratory denies cough or short of breath or wheezing Musculoskeletal-denies acute joint swelling or tenderness or redness Neurological- denies acute dysarthria, dysphagia, change in vision Psychiatry- denies depression or SI or HI Skin- denies acute rash or purpura 01/30/2025- Patient was seen today at bedside. Labs and chart reviewed. Patient reported ongoing nausea but improved, with ongoing abdominal pain. Patient was seen by Gastroenterology, recommended Solu-Medrol, mesalamine, IV antibiotics. Pending stool for Clostridium difficile toxin, stool ova and parasite, stool culture. 01/30/2025-patient was seen today at bedside. Labs and chart reviewed. WBC trending down to 2.7, hemoglobin dropped down to 10.4, platelet 360. Pending report for Clostridium difficile toxin. Patient reported pain has improved mildly, now it is intermittent. Patient was seen by steam conditioner filling yesterday and IV methylprednisolone was given. Patient is on mesalamine. Patient was seen by steam conditioner filling today. recommended to Continue mesalamine 800 mg p.o. three times a day. Continue Solu-Medrol 40 mg q.12 hours, , Questran 4 g packet p.o. daily,Advance to full liquid diet. Patient reports: Feels better Objective vital signs Vital Sign Date Time Temp Pulse Resp B/P (MAP) Pulse Ox O2 Delivery O2 Flow Rate FiO2 01/31/25 08:39 97.4 64 19 129/89 (102) 97 97.4 01/30/25 08:40 Room Air* 0 21 Total Intake and Output 01/30/25 01/30/25 01/31/25 15:00 23:00 07:00 Intake Total 100 ml 0 ml 330 ml Balance 100 ml 0 ml 330 ml medications Current Medications Medications Dose Ordered Sig/Aramis Route Start Time Stop Time Status Last Admin Dose Admin Acetaminophen 325 mg Q4HP PRN PO 01/29/25 20:45 Acetaminophen/ Hydrocodone Bitart 1 tab Q4HP PRN PO 01/29/25 20:45 Ondansetron HCl 4 mg Q4HP PRN IV 01/29/25 20:45 Morphine Sulfate 2 mg Q4HPRN PRN IV 01/29/25 20:45 01/30/25 22:51 2 MG Nitroglycerin 0.4 mg Q5MINP PRN SL 01/29/25 20:45 Piperacillin Sod/ Tazobactam Sod 100 ml @ 25 mls/hr Q8HR IV 01/30/25 00:30 01/31/25 05:32 25 MLS/HR Azathioprine 50 mg DAILY PO 01/30/25 10:00 Patient Own Medication 10 mg EOD PO 01/30/25 10:00 Hold Fluticasone Propionate 1 mcg DAILY EACHNOSTRI 01/30/25 10:00 Montelukast Sodium 10 mg DAILY PO 01/30/25 10:00 Lactated Ringer's 1,000 ml @ 110 mls/hr Q9H6M IV 01/30/25 11:00 01/31/25 05:44 110 MLS/HR Mesalamine 800 mg TID PO 01/30/25 14:00 01/31/25 05:32 800 MG Iron Sucrose 110 ml @ 110 mls/hr DAILY@1200 IV 01/31/25 12:00 02/02/25 12:59 Enoxaparin Sodium 40 mg DAILY SC 01/31/25 10:00 Pantoprazole Sodium 40 mg DAILY IV 01/31/25 10:00 Examination General examination- awake, alert, oriented HEENT- PEERLA, no acute nasal discharge Cardiovascular- S1-S2 audible, rate and rhythm regular, no murmur Respiratory- CTAB, no wheeze or rhonchi Gastrointestinal-tenderness in the left lower abdomen++, + bowel sound Musculoskeletal-no acute joint swelling or tenderness or redness Lower extremity- no leg edema Neurological- cranial nerves intact, no acute dysarthria or dysphagia Psychiatry- denies depression or SI or HI Skin- no acute rash or purpura laboratory and microbiology Laboratory Tests 01/31/25 04:50 Test 01/31/25 04:50 Range/Units Serum Glucose 163 H 74-106 mg/dL Microbiology Date/Time Source Procedure Growth Status 01/30/25 08:53 Blood Blood Culture - Preliminary NO GROWTH AFTER 24 HOURS OF INCUBATION. Resulted Labs and/or images reviewed: Labs reviewed by me, Image(s) reviewed by me Problem List/Assessment/Plan Problem List/Assessment/Plan Assessment and plan # acute on chronic abdominal pain # acute bloody diarrhea # rectal bleeding # suspected acute on chronic ulcerative colitis/diverticulitis # rule out Clostridium difficile colitis # history of 1+ internal hemorrhoid -- Colonoscopy done on 07/28/2024 and showed Patient had some residual sigmoid inflammation and sigmoiditis with some hyperemia erythema superficial mucopus and there were multiple pseudopolyps in this area from which biopsies were obtained - biopsy results showed no dysplasia or malignancy -continue Zosyn as prescribed Continue IV fluid as prescribed -pending stool culture, blood culture, stool for ova and parasite, stool for Clostridium difficile toxin -Patient was seen by steam conditioner filling today. Recommendation reviewed and appreciated -continue mesalamine 800 mg p.o. three times a day. - Continue Solu-Medrol 40 mg q.12 hours, Questran 4 g packet p.o. daily, -Advance to full liquid diet # prostatic carcinoma, status post prostatectomy in 2009 -no acute sign or symptom of retention of urine -monitoring clinically # iron-deficiency anemia -iron supplement as prescribed # substance abuse cannabinoids -patient is counseled about the effect of substance abuse on health Goals of care, Code status ; full code, discussed with >15 minutes PUD prophylaxis: Pantoprazole DVT prophylaxis: Lovenox Plan discussed with Dr. Donahue , nursing staff, Total time spent on patient evaluation, chart review, assessment and plan, discussion discussion >35 minutes Plan discussed with: Other (RN) My Orders My Orders Orders - TERRENCE PIERCE RESIDENT Procedure Category Date Status Time Lactated Ringer's PHA 01/30/25 In Process 11:00 Clear Liq Diet DIET 01/30/25 Transmitted Lunch Iron Sucrose Complex PHA 01/31/25 In Process (Venofer) 12:00 Enoxaparin Sodium PHA 01/31/25 In Process (Lovenox) 10:00 Pantoprazole PHA 01/31/25 In Process (Protonix) 10:00 Date of Service: Jan 31, 2025 Billing Provider: MARLEEN DONAHUE MD Common Visit Codes: [id number] INP/OBS CARE(HIGH) TERRENCE PIERCE Jan 31, 2025 09:20 GIOVANNI BENNETT Feb 01, 2025 07:01 MARLEEN DONAHUE MD Feb 01, 2025 10:47
[2025-01-31] MEDS: PANTOPRAZOLE 40 MG/10 ML VIAL INJ IV SCH (09:51)
[2025-01-31] MEDS: ENOXAPARIN SOD 40 MG/0.4 ML SYRINGE SC SCH (09:52)
[2025-01-31] MEDS: IRON SUCROSE COMPLEX 110 ML IV SCH (12:12)
--- NOTE | 2025-01-31 13:17 | DVHPN2 ---
Progress Note - Dictate Date Seen: Jan 31, 2025 Medical Necessity Reason Pt with a Central, PICC or Fol: No Subjective Patient seen at bedside, resting comfortably He is tolerating clear liquid diet Patient reports about 10 bowel movements over the last 24 hours mostly watery He denies any bleeding He also complained of some abdominal cramping vital signs Vital Sign Date Time Temp Pulse Resp B/P (MAP) Pulse Ox O2 Delivery O2 Flow Rate FiO2 01/31/25 12:47 98.1 58 17 121/69 (86) 96 98.1 01/31/25 07:35 Room Air* 0 21 Total Intake and Output 01/30/25 01/30/25 01/31/25 15:00 23:00 07:00 Intake Total 100 ml 0 ml 330 ml Balance 100 ml 0 ml 330 ml medications Current Medications Medications Dose Ordered Sig/Aramis Route Start Time Stop Time Status Last Admin Dose Admin Acetaminophen 325 mg Q4HP PRN PO 01/29/25 20:45 Acetaminophen/ Hydrocodone Bitart 1 tab Q4HP PRN PO 01/29/25 20:45 Ondansetron HCl 4 mg Q4HP PRN IV 01/29/25 20:45 Morphine Sulfate 2 mg Q4HPRN PRN IV 01/29/25 20:45 01/31/25 10:03 2 MG Nitroglycerin 0.4 mg Q5MINP PRN SL 01/29/25 20:45 Piperacillin Sod/ Tazobactam Sod 100 ml @ 25 mls/hr Q8HR IV 01/30/25 00:30 01/31/25 05:32 25 MLS/HR Azathioprine 50 mg DAILY PO 01/30/25 10:00 01/31/25 09:53 50 MG Patient Own Medication 10 mg EOD PO 01/30/25 10:00 Hold Fluticasone Propionate 1 mcg DAILY EACHNOSTRI 01/30/25 10:00 Montelukast Sodium 10 mg DAILY PO 01/30/25 10:00 01/31/25 09:52 10 MG Lactated Ringer's 1,000 ml @ 110 mls/hr Q9H6M IV 01/30/25 11:00 01/31/25 05:44 110 MLS/HR Mesalamine 800 mg TID PO 01/30/25 14:00 01/31/25 05:32 800 MG Iron Sucrose 110 ml @ 110 mls/hr DAILY@1200 IV 01/31/25 12:00 02/02/25 12:59 01/31/25 12:12 110 MLS/HR Enoxaparin Sodium 40 mg DAILY SC 01/31/25 10:00 01/31/25 09:52 40 MG Pantoprazole Sodium 40 mg DAILY IV 01/31/25 10:00 01/31/25 09:51 40 MG objective General examination- awake, alert, oriented HEENT- PEERLA, no acute nasal discharge Cardiovascular- S1-S2 audible, rate and rhythm regular, no murmur Respiratory- CTAB, no wheeze or rhonchi Gastrointestinal-tenderness in the left lower abdomen++, + bowel sound Musculoskeletal-no acute joint swelling or tenderness or redness Lower extremity- no leg edema Neurological- cranial nerves intact, no acute dysarthria or dysphagia Psychiatry- denies depression or SI or HI Skin- no acute rash or purpura laboratory and microbiology Laboratory Tests 01/31/25 04:50 Test 01/31/25 04:50 Range/Units Serum Glucose 163 H 74-106 mg/dL CT SCAN ABD PELVIS IMPRESSION: Thickening and pericolonic inflammatory change involving the sigmoid and distal descending colon. Scattered diverticuli are noted. Findings most likely reflect acute colitis/diverticulitis. Recommend close follow-up to resolution to exclude any underlying neoplasm. Other chronic-appearing findings as above. Problems(with codes): (1) Rectal bleeding (2) Ulcerative colitis (3) Abdominal pain (4) Abnormal finding on GI tract imaging Prognosis Plan Continue mesalamine 800 mg p.o. three times a day Continue Solu-Medrol 40 mg q.12 hours Imodium as needed for diarrhea Questran 4 g packet p.o. daily Awaiting stool test results Advance to full liquid diet Plan discussed with: Patient, Other (Nurse and Diane Jones) MARLENE MEHTA MD Jan 31, 2025 13:17
[2025-01-31] MEDS: methylPREDNISolone SOD SUCC 40 MG/ML VL IV ONE (16:54)
[2025-01-31] MEDS: CHOLESTYRAMINE 4 GM POWDER GT ONE (16:54)
[2025-01-31] MEDS: methylPREDNISolone SOD SUCC 40 MG/ML VL IV SCH (21:38)
[2025-01-31] MEDS: ONDANSETRON HCL 4 MG/2 ML VIAL IV PRN (23:00)
[2025-02-01] VITALS (7 sets, daily range): BP systolic 105–134; BP diastolic 56–74; PULSE 50–61; RESP 16–22; TEMP 97.5–98; O2SAT 94–99
[2025-02-01 06:27] LABS: Hematocrit 28.4 % (41.0-53.0); Hemoglobin 9.5 g/dL (13.5-17.5); Mean Corpuscular Hemoglobin 26.9 pg (28.0-32.0); Mean Corpuscular Volume 80.3 fL (80.0-100.0); Nucleated Red Blood Cells % 0.1 %
[2025-02-01 06:51] LABS: Alkaline Phosphatase 50 U/L (46-116); Anion Gap 5 (5-15); BUN/Creatinine Ratio 10.1 (10.0-20.0); Carbon Dioxide 27 mmol/L (20-31); Chloride 106 mmol/L (98-107); Magnesium 2.1 mg/dL (1.6-2.6); Potassium 4.5 mmol/L (3.5-5.1); Sodium 138 mmol/L (136-145)
[2025-02-01 06:52] LABS: Blood Urea Nitrogen 8 mg/dL (9-23); Glucose 146 mg/dL (74-106)
[2025-02-01 06:53] LABS: Alanine Aminotransferase < 9 U/L (7-40); Albumin 3.1 g/dL (3.2-4.8); Bilirubin, Total 0.2 mg/dL (0.2-1.0); Calcium 8.2 mg/dL (8.7-10.4); Total Protein 5.3 g/dL (5.7-8.2)
[2025-02-01] MEDS: CHOLESTYRAMINE 4 GM POWDER GT SCH (09:13)
[2025-02-01] MEDS: FLORASTOR (S. BOULARDII) 250 MG CAP PO ONE (10:00)
--- NOTE | 2025-02-01 17:28 | DVHPNRES ---
Progress Note Date Seen: Feb 01, 2025 Resident Creating Document: TERRENCE PIERCE RESIDENT Medical Necessity Reason Pt with a Central, PICC or Fol: No Subjective Review of Systems Patient is 61 years old male with a past medical history of ulcerative colitis, diverticulitis, ONEAL, prostate carcinoma, status post prostatectomy in 2009 came with a complaint of abdominal pain. As per patient he has been having worsening abdominal pain, for past 5-6 weeks in the left lower quadrant, crampy, continuous, some relief with the pain medication which is getting worse over last 2 weeks, 03/16. Patient reported diarrhea almost 10-20 times a day, with the occasional blood with the stool. Patient also reported nausea, history of not regular diet eating due to fear of having nausea or vomiting if he eats. Mostly eating liquid diet or yogurt. Patient reported losing almost 20 lb over 1 month. Patient recently completed Medrol Dosepak and ciprofloxacin on Wednesday from Dr. Obregon outpatient clinic. Patient had colonoscopy done on 07/28/2024 which revealed residual sigmoid inflammation, sigmoid polyp 1-1.5 cm. Initial lab workup revealed WBC 4.1, hemoglobin 11.4, RDW 15.6, ESR 72, CRP 13.9, lipase 32, serum iron 9, TIBC 182, saturation 4.9, ferritin 107.6. UDS positive for cannabinoids. CT abdomen and pelvis revealed- Thickening and pericolonic inflammatory change involving the sigmoid and distal descending colon. Scattered diverticuli are noted. Findings most likely reflect acute colitis/diverticulitis. Recommend close follow-up to resolution to exclude any underlying neoplasm. PMH- ulcerative colitis, diverticulitis, idea, prostate carcinoma, status post prostatectomy in 2009 PSH- Status post prostatectomy, rotator cuff surgery, hand surgery the stiffness, status post left hip arthroplasty Allergy- NKDA Personal History/ Social History-quit smoking 20 years before, occasional alcoholic, use cannabinoids. Patient was seen today at the bedside. Cardiovascular- deny acute chest pain or shortness of breath or cough or palpitation Respiratory denies cough or short of breath or wheezing Musculoskeletal-denies acute joint swelling or tenderness or redness Neurological- denies acute dysarthria, dysphagia, change in vision Psychiatry- denies depression or SI or HI Skin- denies acute rash or purpura 01/30/2025- Patient was seen today at bedside. Labs and chart reviewed. Patient reported ongoing nausea but improved, with ongoing abdominal pain. Patient was seen by Gastroenterology, recommended Solu-Medrol, mesalamine, IV antibiotics. Pending stool for Clostridium difficile toxin, stool ova and parasite, stool culture. 01/30/2025-patient was seen today at bedside. Labs and chart reviewed. WBC trending down to 2.7, hemoglobin dropped down to 10.4, platelet 360. Pending report for Clostridium difficile toxin. Patient reported pain has improved mildly, now it is intermittent. Patient was seen by fur glosser yesterday and IV methylprednisolone was given. Patient is on mesalamine. Patient was seen by fur glosser today. recommended to Continue mesalamine 800 mg p.o. three times a day. Continue Solu-Medrol 40 mg q.12 hours, , Questran 4 g packet p.o. daily,Advance to full liquid diet. 01/31/2025-patient was seen today at bedside, labs and chart reviewed. Patient reported feeling better but still had 4 bowel movement overnight with some blood. Discontinued Zosyn and ordered ceftriaxone and probiotics. Occult blood test positive. Clostridium difficile toxin negative. Objective vital signs Vital Sign Date Time Temp Pulse Resp B/P (MAP) Pulse Ox O2 Delivery O2 Flow Rate FiO2 02/01/25 16:51 97.6 50 17 117/74 (88) 96 97.6 02/01/25 08:00 Room Air* 0 21 Total Intake and Output 01/31/25 01/31/25 02/01/25 15:00 23:00 07:00 Intake Total 210 ml 800 ml 1660 ml Balance 210 ml 800 ml 1660 ml medications Current Medications Medications Dose Ordered Sig/Aramis Route Start Time Stop Time Status Last Admin Dose Admin Acetaminophen 325 mg Q4HP PRN PO 01/29/25 20:45 Acetaminophen/ Hydrocodone Bitart 1 tab Q4HP PRN PO 01/29/25 20:45 Ondansetron HCl 4 mg Q4HP PRN IV 01/29/25 20:45 01/31/25 23:00 4 MG Morphine Sulfate 2 mg Q4HPRN PRN IV 01/29/25 20:45 02/01/25 09:30 2 MG Nitroglycerin 0.4 mg Q5MINP PRN SL 01/29/25 20:45 Azathioprine 50 mg DAILY PO 01/30/25 10:00 02/01/25 10:00 50 MG Patient Own Medication 10 mg EOD PO 01/30/25 10:00 Hold Fluticasone Propionate 1 mcg DAILY EACHNOSTRI 01/30/25 10:00 Montelukast Sodium 10 mg DAILY PO 01/30/25 10:00 02/01/25 09:13 10 MG Mesalamine 800 mg TID PO 01/30/25 14:00 02/01/25 14:55 800 MG Iron Sucrose 110 ml @ 110 mls/hr DAILY@1200 IV 01/31/25 12:00 02/02/25 12:59 02/01/25 11:06 110 MLS/HR Enoxaparin Sodium 40 mg DAILY SC 01/31/25 10:00 02/01/25 09:13 40 MG Pantoprazole Sodium 40 mg DAILY IV 01/31/25 10:00 02/01/25 09:11 40 MG Metronidazole 100 ml @ 100 mls/hr Q8HR IV 01/31/25 14:00 02/01/25 14:57 100 MLS/HR Loperamide HCl 2 mg PRN PRN PO 01/31/25 13:15 Cholestyramine Resin 4 gm DAILY@11 GT 02/01/25 11:00 02/01/25 09:13 4 GM Methylprednisolone Sodium Succinate 40 mg BID IV 01/31/25 22:00 02/01/25 09:11 40 MG Saccharomyces Boulardii 250 mg BID PO 02/01/25 22:00 Ceftriaxone Sodium 50 ml @ 100 mls/hr DAILY@09 IV 02/02/25 09:00 Enteral Nutritional Formula 240 ml TIDWM PO 02/01/25 18:00 Examination General examination- awake, alert, oriented HEENT- PEERLA, no acute nasal discharge Cardiovascular- S1-S2 audible, rate and rhythm regular, no murmur Respiratory- CTAB, no wheeze or rhonchi Gastrointestinal-tenderness in the left lower abdomen++, + bowel sound Musculoskeletal-no acute joint swelling or tenderness or redness Lower extremity- no leg edema Neurological- cranial nerves intact, no acute dysarthria or dysphagia Psychiatry- denies depression or SI or HI Skin- no acute rash or purpura laboratory and microbiology Laboratory Tests 02/01/25 04:42 Test 02/01/25 04:42 Range/Units Serum Glucose 146 H 74-106 mg/dL Microbiology Date/Time Source Procedure Growth Status 01/31/25 14:26 Stool Stool Culture - Preliminary Resulted 01/31/25 14:26 Stool Shiga Toxin I & II Pending Resulted 01/30/25 08:53 Blood Blood Culture - Preliminary NO GROWTH AFTER 48 HOURS OF INCUBATION. Resulted Problem List/Assessment/Plan Problem List/Assessment/Plan Assessment and plan # acute on chronic abdominal pain # acute bloody diarrhea # rectal bleeding # suspected acute on chronic ulcerative colitis/diverticulitis # rule out Clostridium difficile colitis # history of 1+ internal hemorrhoid -- Colonoscopy done on 07/28/2024 and showed Patient had some residual sigmoid inflammation and sigmoiditis with some hyperemia erythema superficial mucopus and there were multiple pseudopolyps in this area from which biopsies were obtained - biopsy results showed no dysplasia or malignancy -on 02/01/2025 discontinued Zosyn, continue ceftriaxone 1 g IV daily and continue metronidazole as prescribed -Clostridium difficile toxin negative. --stool culture enteric amparo -continue mesalamine 800 mg p.o. three times a day. - Continue Solu-Medrol 40 mg q.12 hours, Questran 4 g packet p.o. daily, -Advance to full liquid diet # prostatic carcinoma, status post prostatectomy in 2009 -no acute sign or symptom of retention of urine -monitoring clinically # iron-deficiency anemia -iron supplement as prescribed # substance abuse cannabinoids -patient is counseled about the effect of substance abuse on health Goals of care, Code status ; full code, discussed with >15 minutes PUD prophylaxis: Pantoprazole DVT prophylaxis: Lovenox Plan discussed with Dr. Bernal , nursing staff, Total time spent on patient evaluation, chart review, assessment and plan, discussion discussion >35 minutes Plan discussed with: Patient, Other (RN) My Orders My Orders Orders - TERRENCE PIERCE RESIDENT Procedure Category Date Status Time Full Liq Diet DIET 02/01/25 Transmitted Breakfast Florastor (S. PHA 02/01/25 In Process Boulardii) (Florastor) 22:00 Ceftriaxone 1gm/50ml PHA 02/02/25 In Process D5w (Rocephin) 09:00 Nutritional PHA 02/01/25 In Process Supplements (Ensure 18:00 Dietary Evaluation Review Comments: 1. Advance to diet when medically feasible: dairy-intolerance, but may have Maori yogurt, almond milk, herbal tea. 2. Ensure HP 240ml PO TID 3. accommondate his likes and dislike and monito PO intake to meet 100% of his needs Expected Outcomes/Goals: improved food tolerance, Gradual wt gain, Date of Service: Feb 01, 2025 Billing Provider: RAYMOND CERNA MD Common Visit Codes: [id number] INP/OBS CARE(HIGH) TERRENCE PIERCE RESIDENT Feb 01, 2025 17:28 RAYMOND CERNA MD Feb 04, 2025 22:08
[2025-02-01] MEDS: Ensure HIGH Protein Chocolate 8oz Bottle PO SCH (18:13)
[2025-02-01] MEDS: FLORASTOR (S. BOULARDII) 250 MG CAP PO SCH (21:36)
--- NOTE | 2025-02-01 22:51 | DVHPN2 ---
Progress Note - Dictate Date Seen: Feb 01, 2025 Medical Necessity Reason Pt with a Central, PICC or Fol: No Subjective Patient seen at bedside, resting comfortably He is tolerating full liquid diet 5 bowel movements over the last 24 hours mostly watery He denies any bleeding He also complained of some abdominal cramping Stool for C diff negative vital signs Vital Sign Date Time Temp Pulse Resp B/P (MAP) Pulse Ox O2 Delivery O2 Flow Rate FiO2 02/01/25 20:35 97.5 61 19 128/72 (90) 96 97.5 02/01/25 20:00 Room Air* 0 21 Total Intake and Output 01/31/25 01/31/25 02/01/25 15:00 23:00 07:00 Intake Total 210 ml 800 ml 1660 ml Balance 210 ml 800 ml 1660 ml medications Current Medications Medications Dose Ordered Sig/Aramis Route Start Time Stop Time Status Last Admin Dose Admin Acetaminophen 325 mg Q4HP PRN PO 01/29/25 20:45 Acetaminophen/ Hydrocodone Bitart 1 tab Q4HP PRN PO 01/29/25 20:45 Ondansetron HCl 4 mg Q4HP PRN IV 01/29/25 20:45 01/31/25 23:00 4 MG Morphine Sulfate 2 mg Q4HPRN PRN IV 01/29/25 20:45 02/01/25 09:30 2 MG Nitroglycerin 0.4 mg Q5MINP PRN SL 01/29/25 20:45 Azathioprine 50 mg DAILY PO 01/30/25 10:00 02/01/25 10:00 50 MG Patient Own Medication 10 mg EOD PO 01/30/25 10:00 Hold Fluticasone Propionate 1 mcg DAILY EACHNOSTRI 01/30/25 10:00 Montelukast Sodium 10 mg DAILY PO 01/30/25 10:00 02/01/25 09:13 10 MG Mesalamine 800 mg TID PO 01/30/25 14:00 02/01/25 21:33 800 MG Iron Sucrose 110 ml @ 110 mls/hr DAILY@1200 IV 01/31/25 12:00 02/02/25 12:59 02/01/25 11:06 110 MLS/HR Enoxaparin Sodium 40 mg DAILY SC 01/31/25 10:00 02/01/25 09:13 40 MG Pantoprazole Sodium 40 mg DAILY IV 01/31/25 10:00 02/01/25 09:11 40 MG Metronidazole 100 ml @ 100 mls/hr Q8HR IV 01/31/25 14:00 02/01/25 21:34 100 MLS/HR Loperamide HCl 2 mg PRN PRN PO 01/31/25 13:15 Cholestyramine Resin 4 gm DAILY@11 GT 02/01/25 11:00 02/01/25 09:13 4 GM Methylprednisolone Sodium Succinate 40 mg BID IV 01/31/25 22:00 02/01/25 21:34 40 MG Saccharomyces Boulardii 250 mg BID PO 02/01/25 22:00 02/01/25 21:36 250 MG Ceftriaxone Sodium 50 ml @ 100 mls/hr DAILY@09 IV 02/02/25 09:00 Enteral Nutritional Formula 240 ml TIDWM PO 02/01/25 18:00 02/01/25 18:13 240 ML objective General examination- awake, alert, oriented HEENT- PEERLA, no acute nasal discharge Cardiovascular- S1-S2 audible, rate and rhythm regular, no murmur Respiratory- CTAB, no wheeze or rhonchi Gastrointestinal-tenderness in the left lower abdomen++, + bowel sound Musculoskeletal-no acute joint swelling or tenderness or redness Lower extremity- no leg edema Neurological- cranial nerves intact, no acute dysarthria or dysphagia Psychiatry- denies depression or SI or HI Skin- no acute rash or purpura laboratory and microbiology Laboratory Tests 02/01/25 04:42 Test 02/01/25 04:42 Range/Units Serum Glucose 146 H 74-106 mg/dL Problems(with codes): (1) Abnormal finding on GI tract imaging (2) Ulcerative colitis (3) Non-specific colitis (4) Abdominal pain Prognosis Plan Flare up of ulcerative colitis Continue mesalamine 800 mg p.o. three times a day Continue Solu-Medrol 40 mg q.12 hours Imodium as needed for diarrhea Questran 4 g packet p.o. daily Stool tests negative so far Stool for WBC many due to IBD Advance to soft diet in am IV Flagyl d/c today Possible d/c iv zosyn in 24-48 hrs Add probiotics Dietary Evaluation Review Comments: 1. Advance to diet when medically feasible: dairy-intolerance, but may have Estonian yogurt, almond milk, herbal tea. 2. Ensure HP 240ml PO TID 3. accommondate his likes and dislike and monito PO intake to meet 100% of his needs Expected Outcomes/Goals: improved food tolerance, Gradual wt gain, Plan discussed with: Other (Dr Gomes) MARLENE MEHTA MD Feb 01, 2025 22:50
[2025-02-02 00:35] VITALS: BP 121/68; PULSE 53; RESP 20; TEMP 98.2; O2SAT 96
[2025-02-02 05:03] VITALS: BP 113/63; PULSE 55; RESP 19; TEMP 98; O2SAT 96
[2025-02-02] MEDS: HYDROcodone-ACET 5/325MG TAB PO PRN (05:32)
[2025-02-02 06:14] LABS: Hematocrit 31.7 % (41.0-53.0); Hemoglobin 10.7 g/dL (13.5-17.5); Mean Corpuscular Hemoglobin 27.1 pg (28.0-32.0); Mean Corpuscular Volume 80.3 fL (80.0-100.0); Nucleated Red Blood Cells % 0.1 %
[2025-02-02 06:24] LABS: Chloride 106 mmol/L (98-107); Potassium 3.9 mmol/L (3.5-5.1); Sodium 140 mmol/L (136-145)
[2025-02-02 06:25] LABS: Anion Gap 6 (5-15); Carbon Dioxide 28 mmol/L (20-31)
[2025-02-02 06:29] LABS: Calcium 8.5 mg/dL (8.7-10.4)
[2025-02-02 06:30] LABS: BUN/Creatinine Ratio 11.4 (10.0-20.0); Blood Urea Nitrogen 9 mg/dL (9-23)
[2025-02-02 06:31] LABS: Magnesium 2.2 mg/dL (1.6-2.6)
[2025-02-02 06:50] LABS: Glucose 120 mg/dL (74-106)
[2025-02-02 09:00] VITALS: BP 109/60; PULSE 53; RESP 16; TEMP 98; O2SAT 99
[2025-02-02 12:43] VITALS: BP 177/84; PULSE 56; RESP 18; TEMP 97.7; O2SAT 99
--- NOTE | 2025-02-02 14:11 | DVHDSRES ---
Discharge Summary Date of Admission Resident Creating Document: TERRENCE PIERCE RESIDENT Jan 29, 2025 at 20:34 Date of Discharge: Feb 02, 2025 Admitting Diagnosis Acute abdominal pain with rectal bleeding Labs/Diagnostic Data: Laboratory Results Test 02/02/25 05:10 02/01/25 11:17 02/01/25 04:42 01/30/25 11:15 White Blood Count 4.1 10^3/uL (4.4-10.8) Red Blood Count 3.95 10^6/uL (4.5-5.90) Hemoglobin 10.7 g/dL (13.5-17.5) Hematocrit 31.7 % (41.0-53.0) Mean Corpuscular Volume 80.3 fL (80.0-100.0) Mean Corpuscular Hemoglobin 27.1 pg (28.0-32.0) Mean Corpuscular Hemoglobin Concent 33.8 g/dL (32.0-36.0) Red Cell Distribution Width 15.8 % (11.8-14.3) Platelet Count 449 10^3/uL (140-450) Mean Platelet Volume 7.3 fL (6.9-10.8) Neutrophils (%) (Auto) 84.2 % (37.0-80.0) Lymphocytes (%) (Auto) 3.4 % (10.0-50.0) Monocytes (%) (Auto) 12.3 % (0.0-12.0) Eosinophils (%) (Auto) 0.0 % (0.0-7.0) Basophils (%) (Auto) 0.1 % (0.0-2.0) Neutrophils # (Auto) 3.5 10 ^3/uL (1.6-8.6) Lymphocytes # (Auto) 0.1 10 ^3/uL (0.4-5.4) Monocytes # (Auto) 0.5 10 ^3/uL (0-1.3) Eosinophils # (Auto) 0 10 ^3/uL (0-0.8) Basophils # (Auto) 0 10 ^3/uL (0-0.2) Nucleated Red Blood Cells 0.1 % Sodium Level 140 mmol/L (136-145) Potassium Level 3.9 mmol/L (3.5-5.1) Chloride Level 106 mmol/L (98-107) Carbon Dioxide Level 28 mmol/L (20-31) Anion Gap 6 (5-15) Blood Urea Nitrogen 9 mg/dL (9-23) Creatinine 0.79 mg/dL (0.700-1.30) Glomerular Filtration Rate Calc 96 mL/min (>90) BUN/Creatinine Ratio 11.4 (10.0-20.0) Serum Glucose 120 mg/dL (74-106) Calcium Level 8.5 mg/dL (8.7-10.4) Magnesium Level 2.2 mg/dL (1.6-2.6) C-Reactive Protein High Sensitivity 3.59 mg/dL (<1.0) Stool Occult Blood Positive (Negative) Stool Occult Blood Sample #3 (Negative) Total Bilirubin 0.2 mg/dL (0.2-1.0) Aspartate Amino Transferase (AST) < 8 U/L (13-40) Alanine Aminotransferase (ALT) < 9 U/L (7-40) Alkaline Phosphatase 50 U/L (46-116) Total Protein 5.3 g/dL (5.7-8.2) Albumin 3.1 g/dL (3.2-4.8) Stool for White Cells Many Test 01/30/25 03:32 01/29/25 23:33 01/29/25 22:04 01/29/25 18:45 Differential Total Cells Counted 100.0 (100) Neutrophils % (Manual) 61 (37.0-80.0) Band Neutrophils % (Manual) 3 Lymphocytes % (Manual) 11 (10.0-50.0) Monocytes % (Manual) 25 (0-12) Eosinophils % (Manual) 0 (0-7) Basophils % (Manual) 0 (0.0-2.0) Metamyelocytes % (manual) 0 Myelocytes % (Manual) 0 Promyelocytes % (Manual) 0 Blast Cells % (Manual) 0 Reactive Lymphocytes 0 Platelet Estimate Adequate Erythrocyte Sedimentation Rate 72 mm/hr (0-20) Hemoglobin A1c 5.5 % A1C (<5.7) Ferritin 107.6 ng/mL (22-322) B-Type Natriuretic Peptide 10.50 pg/mL (0-100) Troponin I High Sensitivity < 3 ng/L (</=54) Urine Color Kenzie (Yellow) Urine Clarity Hazy (Clear) Urine pH 6.0 (5.0-9.0) Urine Specific [place] 1.020 (1.001-1.035) Urine Protein 1+ (Negative) Urine Ketones 3+ (Negative) Urine Blood 3+ /uL (Negative) Urine Nitrite Negative (Negative) Urine Bilirubin Negative (Negative) Urine Urobilinogen Normal mg/dL (Negative) Urine Leukocyte Esterase Negative /uL (Negative) Urine RBC 28 /hpf (0 - 3) Urine Microscopic WBC 3 /HPF (0-3) Urine Squamous Epithelial Cells Few /hpf (<5) Urine Bacteria None seen /hpf (None Seen) Urine Mucus Many (None Seen) Urine Glucose Normal mg/dL (Normal) Urine Opiates Screen Pos (NEGATIVE) Urine Fentanyl Screen Neg (NEGATIVE) Urine Barbiturates Screen Neg (NEGATIVE) Urine Phencyclidine Screen Neg (NEGATIVE) Urine Amphetamines Screen Neg (NEGATIVE) Urine Benzodiazepines Screen Neg (NEGATIVE) Urine Cocaine Screen Neg (NEGATIVE) Urine Cannabinoids Screen Pos (NEGATIVE) Prothrombin Time 11.5 sec (9.3-11.8) Prothrombin Time INR 1.09 (0.9-1.15) Activated Partial Thromboplast Time 33.8 SEC (24.5-34.5) Lactic Acid Level 0.9 mmol/L (0.4-2.0) Iron Level 9 ug/dL (65-175) Total Iron Binding Capacity 182 ug/dL (250-425) Percent Iron Saturation 4.9 % (20-55) Lipase 22 U/L (12-53) Thyroid Stimulating Hormone (TSH) 1.50 uIU/mL (0.55-4.78) Other Laboratory Tests 02/02/25 05:10 Brief Hx & Hospital Course: HPI- Patient is 61 years old male with a past medical history of ulcerative colitis, diverticulitis, ONEAL, prostate carcinoma, status post prostatectomy in 2009 came with a complaint of abdominal pain. As per patient he has been having worsening abdominal pain, for past 5-6 weeks in the left lower quadrant, crampy, continuous, some relief with the pain medication which is getting worse over last 2 weeks, 03/16. Patient reported diarrhea almost 10-20 times a day, with the occasional blood with the stool. Patient also reported nausea, history of not regular diet eating due to fear of having nausea or vomiting if he eats. Mostly eating liquid diet or yogurt. Patient reported losing almost 20 lb over 1 month. Patient recently completed Medrol Dosepak and ciprofloxacin on Wednesday from Dr. Obregon outpatient clinic. Patient had colonoscopy done on 07/28/2024 which revealed residual sigmoid inflammation, sigmoid polyp 1-1.5 cm. Initial lab workup revealed WBC 4.1, hemoglobin 11.4, RDW 15.6, ESR 72, CRP 13.9, lipase 32, serum iron 9, TIBC 182, saturation 4.9, ferritin 107.6. UDS positive for cannabinoids. CT abdomen and pelvis revealed- Thickening and pericolonic inflammatory change involving the sigmoid and distal descending colon. Scattered diverticuli are noted. Findings most likely reflect acute colitis/diverticulitis. Recommend close follow-up to resolution to exclude any underlying neoplasm. Hospital course-Patient is 61 years old male with a past medical history of ulcerative colitis, diverticulitis, ONEAL, prostate carcinoma, status post prostatectomy in 2009 came with a complaint of abdominal pain. As per patient he has been having worsening abdominal pain, for past 5-6 weeks in the left lower quadrant, crampy, continuous, some relief with the pain medication which is getting worse over last 2 weeks, 03/16. Patient reported diarrhea almost 10-20 times a day, with the occasional blood with the stool. Patient also reported nausea, history of not regular diet eating due to fear of having nausea or vomiting if he eats. Mostly eating liquid diet or yogurt. Patient reported losing almost 20 lb over 1 month. Patient recently completed Medrol Dosepak and ciprofloxacin on Wednesday from Dr. Obregon outpatient clinic. Patient had colonoscopy done on 07/28/2024 which revealed residual sigmoid inflammation, sigmoid polyp 1-1.5 cm. Initial lab workup revealed WBC 4.1, hemoglobin 11.4, RDW 15.6, ESR 72, CRP 13.9, lipase 32, serum iron 9, TIBC 182, saturation 4.9, ferritin 107.6. UDS positive for cannabinoids. CT abdomen and pelvis revealed- Thickening and pericolonic inflammatory change involving the sigmoid and distal descending colon. Scattered diverticuli are noted. Findings most likely reflect acute colitis/diverticulitis. Recommend close follow-up to resolution to exclude any underlying neoplasm. Clostridium difficile toxin was negative. Patient was treated conservatively, patient had IV methylprednisolone, ongoing mesalamine and azithromycin. Patient was seen by Gastroenterology, patient's symptoms improved gradually, no colonoscopy was done during hospitalization. Patient is being discharged home with the advice to follow up with the tool room attendant in 2 weeks, and also with primary care physician in 1 week. Patient was hemodynamically stable on discharge. Assessment # acute on chronic abdominal pain # acute bloody diarrhea # rectal bleeding # suspected acute on chronic ulcerative colitis/diverticulitis # rule out Clostridium difficile colitis # history of 1+ internal hemorrhoid # prostatic carcinoma, status post prostatectomy in 2010 # iron-deficiency anemia # substance abuse cannabinoids # lactose intolerance Plan Please follow up with the primary care physician in 1 week Please follow up with tool room attendant Dr. Obregon in 2 weeks Resume home medications Avoid dehydration and constipation Avoid dairy products Operations or Procedures [place] [id number] Ph: [phone] DIAGNOSTIC IMAGING Diagnostic Imaging Report : [id number] Signed PATIENT: SRAVAN HERNANDEZ ACCT: [id number] UNIT: [id number] : 1955 LOC: ER ROOM / BED: / AGE / SEX: 69 / M ADM STATUS: REG ER SERVICE 25 ORDERING PHYSICIAN: JAQUAN LEONARDO DO PROCEDURE(s): ABPL - CT AB PEL WO CON-NO ORAL OR IV REASON: abd pain ORDER NUMBER(s): [id number], ACCESSION NUMBER(s): [id number] CT SCAN ABDOMEN AND PELVIS WITHOUT CONTRAST CLINICAL HISTORY: abd pain TECHNIQUE: Helical axial images are obtained from the lung bases through the pelvis without oral contrast. No intravenous contrast was administered. Coronal and sagittal reformatted images were generated from thin section reconstructions. One or more of the following radiation dose reduction techniques were used for this examination: automated exposure control, adjustment of the mA and/or kV according to patient size, use of iterative reconstruction technique. COMPARISON: 04/02/2021 FINDINGS: LOWER THORAX: Imaged lung bases are grossly clear. ABDOMEN AND PELVIS: Evaluation of visceral and vascular structures is limited due to lack of contrast administration. Stable appearing scattered cystic hypodensities mainly seen in the hepatic dome. Gallbladder is mildly distended. No sizable, radiopaque cholelithiasis or biliary ductal dilatation. The unenhanced pancreas, spleen and adrenals appear grossly unremarkable. No hydroureteronephrosis or sizable, obstructing urinary tract calculi identified. Aortoiliac atherosclerotic calcifications. No evidence of abdominal aortic aneurysm. No evidence of small-bowel obstruction. Thickening of the sigmoid and distal descending colon with pericolonic fat stranding. A few scattered diverticuli are noted. Streak artifact from the left hip arthroplasty hardware limits evaluation of the rectosigmoid region. As visualized, no sizable pericolonic fluid collections identified. No definite evidence of pneumoperitoneum. Appendix is again noted to be prominent in caliber, measuring approximately 1.2 cm in diameter. There is fat deposition within the appendiceal wall which may be sequelae of chronic inflammatory disease. No sizable appendicolith or periappendiceal fluid collections. No definite bladder calculus. Multilevel degenerative changes of the thoracic and lumbar spine. IMPRESSION: Thickening and pericolonic inflammatory change involving the sigmoid and distal descending colon. Scattered diverticuli are noted. Findings most likely reflect acute colitis/diverticulitis. Recommend close follow-up to resolution to exclude any underlying neoplasm. Other chronic-appearing findings as above. ATED BY: JOSE MARIA CHILEL MD DICTATED DATE/TIME: 01/29/251934 SIGNED BY: JOSE MARIA CHILEL MD SIGNED DATE/TIME: 01/29/251934 CC: Condition at Discharge: Stable Discharge Disposition: Home Discharge Instruct/Medications Follow Up/Referral: Please follow up with the primary care physician in 1 week Please follow up with tool room attendant Dr. Obregon in 2 weeks Medications: Resume home medications Avoid dehydration and constipation Avoid dairy products Scheduled Azathioprine (Imuran), 1 TAB PO DAILY, (Reported) Ferrous Sulfate (Ferosul), 325 MG PO BID, (Reported) Mesalamine (Lialda), 1.2 GM PO DAILY, (Reported) Montelukast Sodium (Montelukast Sodium), 1 TAB PO DAILY, (Reported) Tofacitinib Citrate (Xeljanz), 10 MG PO EOD, (Reported) Miscellaneous Medications Fluticasone Propionate (Nasal) (Fluticasone Propionate), 1 SPRAY CRISTOFER, (Reported) Discharge Statement: "Patient was advised to return to the ER or call 911 if any headaches, dizziness, shortness of breath, chest pain, abdominal pain, bleeding, fevers, or worsening of medical condition. Patient was counseled about treatment plan, medications, possible side effects, patientverbalized understanding. All questions were answered to the best of my ability. This discharge took greater then 30 minutes in planning, reviewing documentation, counseling the patient, and discussing with other team members." ASSESSMENT ASSESSMENT Assessment TERRENCE PIERCE RESIDENT Feb 02, 2025 14:11
--- NOTE | 2025-02-02 16:01 | DVHPNRES ---
Progress Note Date Seen: Feb 02, 2025 Resident Creating Document: TERRENCE PIERCE RESIDENT Medical Necessity Reason Pt with a Central, PICC or Fol: No Subjective Review of Systems Patient is 61 years old male with a past medical history of ulcerative colitis, diverticulitis, ONEAL, prostate carcinoma, status post prostatectomy in 2009 came with a complaint of abdominal pain. As per patient he has been having worsening abdominal pain, for past 5-6 weeks in the left lower quadrant, crampy, continuous, some relief with the pain medication which is getting worse over last 2 weeks, 03/16. Patient reported diarrhea almost 10-20 times a day, with the occasional blood with the stool. Patient also reported nausea, history of not regular diet eating due to fear of having nausea or vomiting if he eats. Mostly eating liquid diet or yogurt. Patient reported losing almost 20 lb over 1 month. Patient recently completed Medrol Dosepak and ciprofloxacin on Wednesday from Dr. Obregon outpatient clinic. Patient had colonoscopy done on 07/28/2024 which revealed residual sigmoid inflammation, sigmoid polyp 1-1.5 cm. Initial lab workup revealed WBC 4.1, hemoglobin 11.4, RDW 15.6, ESR 72, CRP 13.9, lipase 32, serum iron 9, TIBC 182, saturation 4.9, ferritin 107.6. UDS positive for cannabinoids. CT abdomen and pelvis revealed- Thickening and pericolonic inflammatory change involving the sigmoid and distal descending colon. Scattered diverticuli are noted. Findings most likely reflect acute colitis/diverticulitis. Recommend close follow-up to resolution to exclude any underlying neoplasm. PMH- ulcerative colitis, diverticulitis, idea, prostate carcinoma, status post prostatectomy in 2009 PSH- Status post prostatectomy, rotator cuff surgery, hand surgery the stiffness, status post left hip arthroplasty Allergy- NKDA Personal History/ Social History-quit smoking 20 years before, occasional alcoholic, use cannabinoids. Patient was seen today at the bedside. Cardiovascular- deny acute chest pain or shortness of breath or cough or palpitation Respiratory denies cough or short of breath or wheezing Musculoskeletal-denies acute joint swelling or tenderness or redness Neurological- denies acute dysarthria, dysphagia, change in vision Psychiatry- denies depression or SI or HI Skin- denies acute rash or purpura Patient was seen today at bedside, labs and chart reviewed. Patient reported ongoing abdominal pain but improving. Patient will Solu-Medrol, azithromycin and mesalamine. Advanced diet to mechanical soft diet. Patient was seen by Gastroenterology, possible discharge tomorrow. T Objective vital signs Vital Sign Date Time Temp Pulse Resp B/P (MAP) Pulse Ox O2 Delivery O2 Flow Rate FiO2 02/02/25 12:43 97.7 56 18 177/84 (115) 99 97.7 02/02/25 08:00 Room Air* 0 21 Total Intake and Output 02/01/25 02/01/25 02/02/25 15:00 23:00 07:00 Intake Total 210 ml 800 ml 550 ml Balance 210 ml 800 ml 550 ml medications Current Medications Medications Dose Ordered Sig/Aramis Route Start Time Stop Time Status Last Admin Dose Admin Acetaminophen 325 mg Q4HP PRN PO 01/29/25 20:45 Acetaminophen/ Hydrocodone Bitart 1 tab Q4HP PRN PO 01/29/25 20:45 02/02/25 05:32 1 TAB Ondansetron HCl 4 mg Q4HP PRN IV 01/29/25 20:45 01/31/25 23:00 4 MG Morphine Sulfate 2 mg Q4HPRN PRN IV 01/29/25 20:45 02/02/25 09:48 2 MG Nitroglycerin 0.4 mg Q5MINP PRN SL 01/29/25 20:45 Azathioprine 50 mg DAILY PO 01/30/25 10:00 02/02/25 09:53 50 MG Patient Own Medication 10 mg EOD PO 01/30/25 10:00 Hold Fluticasone Propionate 1 mcg DAILY EACHNOSTRI 01/30/25 10:00 Montelukast Sodium 10 mg DAILY PO 01/30/25 10:00 02/01/25 09:13 10 MG Mesalamine 800 mg TID PO 01/30/25 14:00 02/02/25 14:00 800 MG Enoxaparin Sodium 40 mg DAILY SC 01/31/25 10:00 02/02/25 09:52 40 MG Pantoprazole Sodium 40 mg DAILY IV 01/31/25 10:00 02/02/25 09:52 40 MG Metronidazole 100 ml @ 100 mls/hr Q8HR IV 01/31/25 14:00 02/02/25 14:00 100 MLS/HR Loperamide HCl 2 mg PRN PRN PO 01/31/25 13:15 Cholestyramine Resin 4 gm DAILY@11 GT 02/01/25 11:00 02/02/25 09:52 4 GM Methylprednisolone Sodium Succinate 40 mg BID IV 01/31/25 22:00 02/02/25 09:53 40 MG Saccharomyces Boulardii 250 mg BID PO 02/01/25 22:00 02/02/25 09:53 250 MG Ceftriaxone Sodium 50 ml @ 100 mls/hr DAILY@09 IV 02/02/25 09:00 02/02/25 09:46 100 MLS/HR Enteral Nutritional Formula 240 ml TIDWM PO 02/01/25 18:00 02/01/25 18:13 240 ML Examination General examination- awake, alert, oriented HEENT- PEERLA, no acute nasal discharge Cardiovascular- S1-S2 audible, rate and rhythm regular, no murmur Respiratory- CTAB, no wheeze or rhonchi Gastrointestinal-tenderness in the left lower abdomen++, + bowel sound Musculoskeletal-no acute joint swelling or tenderness or redness Lower extremity- no leg edema Neurological- cranial nerves intact, no acute dysarthria or dysphagia Psychiatry- denies depression or SI or HI Skin- no acute rash or purpura laboratory and microbiology Laboratory Tests 02/02/25 05:10 Test 02/02/25 05:10 Range/Units Serum Glucose 120 H 74-106 mg/dL Microbiology Date/Time Source Procedure Growth Status 01/31/25 14:26 Stool Stool Culture - Final Resulted 01/31/25 14:26 Stool Shiga Toxin I & II Pending Resulted 01/30/25 08:53 Blood Blood Culture - Preliminary NO GROWTH AFTER 72 HOURS OF INCUBATION. Resulted Problem List/Assessment/Plan Problem List/Assessment/Plan Assessment and plan # acute on chronic abdominal pain # acute bloody diarrhea # rectal bleeding # suspected acute on chronic ulcerative colitis/diverticulitis # rule out Clostridium difficile colitis # history of 1+ internal hemorrhoid -- Colonoscopy done on 07/28/2024 and showed Patient had some residual sigmoid inflammation and sigmoiditis with some hyperemia erythema superficial mucopus and there were multiple pseudopolyps in this area from which biopsies were obtained - biopsy results showed no dysplasia or malignancy -on 02/01/2025 discontinued Zosyn, - continue ceftriaxone 1 g IV daily and continue metronidazole as prescribed -Clostridium difficile toxin negative. --stool culture enteric amparo -continue mesalamine 800 mg p.o. three times a day. - Continue Solu-Medrol 40 mg q.12 hours, Questran 4 g packet p.o. daily, -Advance diet to mechanical soft diet # prostatic carcinoma, status post prostatectomy in 2009 -no acute sign or symptom of retention of urine -monitoring clinically # iron-deficiency anemia -iron supplement as prescribed # substance abuse cannabinoids -patient is counseled about the effect of substance abuse on health Goals of care, Code status ; full code, discussed with >15 minutes PUD prophylaxis: Pantoprazole DVT prophylaxis: Lovenox Plan discussed with Dr. Bernal , nursing staff, Total time spent on patient evaluation, chart review, assessment and plan, discussion discussion >35 minutes Plan discussed with: Patient, Other (RN) Dietary Evaluation Review Comments: 1. Advance to diet when medically feasible: dairy-intolerance, but may have Bengali yogurt, almond milk, herbal tea. 2. Ensure HP 240ml PO TID 3. accommondate his likes and dislike and monito PO intake to meet 100% of his needs Expected Outcomes/Goals: improved food tolerance, Gradual wt gain, Date of Service: Feb 02, 2025 Billing Provider: RAYMOND CERNA MD Common Visit Codes: [id number] INP/OBS CARE(HIGH) TERRENCE PIERCE RESIDENT Feb 02, 2025 16:01 GIOVANNI BENNETT RESIDENT Feb 02, 2025 19:11 RAYMOND CERNA MD Feb 04, 2025 22:23
[2025-02-02 17:00] VITALS: BP 134/79; PULSE 55; RESP 18; TEMP 97.9; O2SAT 98
[2025-02-02 20:54] VITALS: BP 137/82; PULSE 59; RESP 18; TEMP 97.9; O2SAT 97
--- NOTE | 2025-02-02 21:30 | DVHPN2 ---
Progress Note - Dictate Date Seen: Feb 02, 2025 Medical Necessity Reason Pt with a Central, PICC or Fol: No Subjective Patient is still complaining of abdominal cramping Eight bowel movements were recorded over 24 hours He denies any bleeding He also complained of some abdominal cramping Stool for C diff negative vital signs Vital Sign Date Time Temp Pulse Resp B/P (MAP) Pulse Ox O2 Delivery O2 Flow Rate FiO2 02/02/25 20:54 97.9 59 18 137/82 (100) 97 97.9 02/02/25 08:00 Room Air* 0 21 Total Intake and Output 02/01/25 02/01/25 02/02/25 15:00 23:00 07:00 Intake Total 210 ml 800 ml 550 ml Balance 210 ml 800 ml 550 ml medications Current Medications Medications Dose Ordered Sig/Aramis Route Start Time Stop Time Status Last Admin Dose Admin Acetaminophen 325 mg Q4HP PRN PO 01/29/25 20:45 Acetaminophen/ Hydrocodone Bitart 1 tab Q4HP PRN PO 01/29/25 20:45 02/02/25 05:32 1 TAB Ondansetron HCl 4 mg Q4HP PRN IV 01/29/25 20:45 01/31/25 23:00 4 MG Morphine Sulfate 2 mg Q4HPRN PRN IV 01/29/25 20:45 02/02/25 19:48 2 MG Nitroglycerin 0.4 mg Q5MINP PRN SL 01/29/25 20:45 Azathioprine 50 mg DAILY PO 01/30/25 10:00 02/02/25 09:53 50 MG Patient Own Medication 10 mg EOD PO 01/30/25 10:00 Hold Fluticasone Propionate 1 mcg DAILY EACHNOSTRI 01/30/25 10:00 Montelukast Sodium 10 mg DAILY PO 01/30/25 10:00 02/01/25 09:13 10 MG Mesalamine 800 mg TID PO 01/30/25 14:00 02/02/25 21:20 800 MG Enoxaparin Sodium 40 mg DAILY SC 01/31/25 10:00 02/02/25 09:52 40 MG Pantoprazole Sodium 40 mg DAILY IV 01/31/25 10:00 02/02/25 09:52 40 MG Metronidazole 100 ml @ 100 mls/hr Q8HR IV 01/31/25 14:00 02/02/25 21:20 100 MLS/HR Loperamide HCl 2 mg PRN PRN PO 01/31/25 13:15 Cholestyramine Resin 4 gm DAILY@11 GT 02/01/25 11:00 02/02/25 09:52 4 GM Methylprednisolone Sodium Succinate 40 mg BID IV 01/31/25 22:00 02/02/25 21:21 40 MG Saccharomyces Boulardii 250 mg BID PO 02/01/25 22:00 02/02/25 21:21 250 MG Ceftriaxone Sodium 50 ml @ 100 mls/hr DAILY@09 IV 02/02/25 09:00 02/02/25 09:46 100 MLS/HR objective General examination- awake, alert, oriented HEENT- PEERLA, no acute nasal discharge Cardiovascular- S1-S2 audible, rate and rhythm regular, no murmur Respiratory- CTAB, no wheeze or rhonchi Gastrointestinal-tenderness in the left lower abdomen++, + bowel sound Musculoskeletal-no acute joint swelling or tenderness or redness Lower extremity- no leg edema Neurological- cranial nerves intact, no acute dysarthria or dysphagia Psychiatry- denies depression or SI or HI Skin- no acute rash or purpura laboratory and microbiology Laboratory Tests 02/02/25 05:10 Test 02/02/25 05:10 Range/Units Serum Glucose 120 H 74-106 mg/dL Problems(with codes): (1) Abnormal finding on GI tract imaging (2) Ulcerative colitis (3) Non-specific colitis (4) Abdominal pain (5) Rectal bleeding Prognosis Plan Change to prednisone 40 mg p.o. daily Diet advance to soft mechanical Continue mesalamine 800 mg p.o. three times a day Patient was also taking Imuran as an outpatient I will discuss outpatient treatment with biologicals on his outpatient visit Discharge planning in 24-48 hours once stabilized Outpatient follow up with me in 1-2 weeks for ongoing GI management of his flare-up of ulcerative colitis Dietary Evaluation Review Comments: 1. Advance to diet when medically feasible: dairy-intolerance, but may have [place]uran yogurt, almond milk, herbal tea. 2. Ensure HP 240ml PO TID 3. accommondate his likes and dislike and monito PO intake to meet 100% of his needs Expected Outcomes/Goals: improved food tolerance, Gradual wt gain, Plan discussed with: Other (Nurse) MARLENE MEHTA MD Feb 02, 2025 21:30
[2025-02-02] MEDS ORDERED: CHOLESTYRAMINE 4 GM POWDER GT SCH (22:00)
[2025-02-02] MEDS: CHOLESTYRAMINE 4 GM POWDER PO SCH (22:52)
[2025-02-03] VITALS (7 sets, daily range): BP systolic 119–145; BP diastolic 65–83; PULSE 54–66; RESP 18–20; TEMP 97.1–98.2; O2SAT 96–98
[2025-02-03 07:57] LABS: Anion Gap 6 (5-15); Carbon Dioxide 28 mmol/L (20-31); Chloride 105 mmol/L (98-107); Potassium 4.0 mmol/L (3.5-5.1); Sodium 139 mmol/L (136-145)
[2025-02-03 07:59] LABS: Calcium 8.5 mg/dL (8.7-10.4)
[2025-02-03 08:03] LABS: BUN/Creatinine Ratio 13.9 (10.0-20.0); Blood Urea Nitrogen 10 mg/dL (9-23); Magnesium 2.0 mg/dL (1.6-2.6)
[2025-02-03 08:07] LABS: Glucose 109 mg/dL (74-106)
[2025-02-03 08:10] LABS: Hematocrit 31.6 % (41.0-53.0); Hemoglobin 10.6 g/dL (13.5-17.5); Mean Corpuscular Hemoglobin 27.1 pg (28.0-32.0); Mean Corpuscular Volume 80.5 fL (80.0-100.0)
[2025-02-03 08:56] LABS: Total Cells Counted 100.0 (100)
[2025-02-03] MEDS: DICYCLOMINE HCL 10 MG CAP PO ONE (09:36)
[2025-02-03] MEDS: predniSONE 20 MG TAB PO SCH (09:37)
--- NOTE | 2025-02-03 10:46 | DVHPNRES ---
Progress Note Date Seen: Feb 03, 2025 Resident Creating Document: SAYDA LITTLE RESIDENT Medical Necessity Reason Pt with a Central, PICC or Fol: No Subjective Review of Systems Patient was seen today at bedside, Patient reported ongoing abdominal pain and diarrhea, patient reports she went risk from 15 times in last 24 hrs. Patient's diet was advanced to mechanical soft but patient did not tolerate the diet and resume liquid diet again. GI is on board Dr. Obregon increase his cholestyramine to b.i.d. from once daily. Stopped all antibiotics and Started Bentyl 20 mg b.i.d. for abdominal as per Dr. Obregon Possible discharge tomorrow. Objective vital signs Vital Sign Date Time Temp Pulse Resp B/P (MAP) Pulse Ox O2 Delivery O2 Flow Rate FiO2 02/03/25 10:12 54 18 143/79 02/03/25 09:00 97.7 97 97.7 02/03/25 08:00 Room Air* 0 21 Total Intake and Output 02/02/25 02/02/25 02/03/25 15:00 23:00 07:00 Intake Total 50 ml 1600 ml 450 ml Balance 50 ml 1600 ml 450 ml medications Current Medications Medications Dose Ordered Sig/Aramis Route Start Time Stop Time Status Last Admin Dose Admin Acetaminophen 325 mg Q4HP PRN PO 01/29/25 20:45 Acetaminophen/ Hydrocodone Bitart 1 tab Q4HP PRN PO 01/29/25 20:45 02/02/25 05:32 1 TAB Ondansetron HCl 4 mg Q4HP PRN IV 01/29/25 20:45 01/31/25 23:00 4 MG Morphine Sulfate 2 mg Q4HPRN PRN IV 01/29/25 20:45 02/03/25 10:12 2 MG Nitroglycerin 0.4 mg Q5MINP PRN SL 01/29/25 20:45 Patient Own Medication 10 mg EOD PO 01/30/25 10:00 Hold Fluticasone Propionate 1 mcg DAILY EACHNOSTRI 01/30/25 10:00 Montelukast Sodium 10 mg DAILY PO 01/30/25 10:00 02/01/25 09:13 10 MG Mesalamine 800 mg TID PO 01/30/25 14:00 02/03/25 05:56 800 MG Enoxaparin Sodium 40 mg DAILY SC 01/31/25 10:00 02/03/25 09:37 40 MG Pantoprazole Sodium 40 mg DAILY IV 01/31/25 10:00 02/03/25 09:37 40 MG Loperamide HCl 2 mg PRN PRN PO 01/31/25 13:15 Saccharomyces Boulardii 250 mg BID PO 02/01/25 22:00 02/03/25 09:37 250 MG Prednisone 40 mg DAILY PO 02/03/25 10:00 02/03/25 09:37 40 MG Cholestyramine Resin 4 gm BID PO 02/02/25 22:00 02/03/25 09:37 4 GM Ceftriaxone Sodium 50 ml @ 100 mls/hr DAILY@09 IV 02/03/25 10:45 UNV Metronidazole 100 ml @ 100 mls/hr Q8HR IV 02/03/25 10:45 UNV Azathioprine 50 mg DAILY PO 02/03/25 10:45 UNV Dicyclomine HCl 20 mg BID PO 02/03/25 22:00 UNV Examination General examination- awake, alert, oriented HEENT- PEERLA, no acute nasal discharge Cardiovascular- S1-S2 audible, rate and rhythm regular, no murmur Respiratory- CTAB, no wheeze or rhonchi Gastrointestinal-tenderness in the left lower abdomen++, + bowel sound Musculoskeletal-no acute joint swelling or tenderness or redness Lower extremity- no leg edema Neurological- cranial nerves intact, no acute dysarthria or dysphagia Psychiatry- denies depression or SI or HI Skin- no acute rash or purpura laboratory and microbiology Laboratory Tests 02/03/25 06:54 Test 02/03/25 06:54 Range/Units Serum Glucose 109 H 74-106 mg/dL Microbiology Date/Time Source Procedure Growth Status 01/31/25 14:26 Stool Stool Culture - Final Complete 01/31/25 14:26 Stool Shiga Toxin I & II - Final Complete 01/30/25 08:53 Blood Blood Culture - Preliminary NO GROWTH AFTER 72 HOURS OF INCUBATION. Resulted Problem List/Assessment/Plan Problem List/Assessment/Plan # acute on chronic abdominal pain # acute bloody diarrhea # rectal bleeding # Acute on chronic ulcerative colitis # ruled out diverticulitis # ruled out Clostridium difficile colitis # history of 1+ internal hemorrhoid - Colonoscopy done on 07/28/2024 and showed Patient had some residual sigmoid inflammation and sigmoiditis with some hyperemia erythema superficial mucopus and there were multiple pseudopolyps in this area from which biopsies were obtained - biopsy results showed no dysplasia or malignancy -on 02/01/2025 discontinued Zosyn, - D/C ceftriaxone 1 g IV daily and metronidazole as per Dr. Obregon -Clostridium difficile toxin negative. --stool culture enteric amparo -continue mesalamine 800 mg p.o. three times a day. - start p.o. steroid 20 mg b.i.d. Questran 4 g packet p.o. daily, -Advance diet to mechanical soft diet - start Bentyl 20 mg b.i.d. # prostatic carcinoma, status post prostatectomy in 2009 -no acute sign or symptom of retention of urine -monitoring clinically # iron-deficiency anemia -iron supplement as prescribed # substance abuse cannabinoids -patient is counseled about the effect of substance abuse on health Goals of care discussed with patient for 27 minutes: Full code PUD prophylaxis: Pantoprazole DVT prophylaxis: Lovenox Possible discharge tomorrow Plan discussed with Dr. Bernal , Plan discussed with: Patient My Orders My Orders Orders - SAYDA LITTLE RESIDENT Procedure Category Date Status Time Ceftriaxone Ivpb PHA 02/03/25 Transmitted Rocephin 10:45 Metronidazole Ivpb PHA 02/03/25 Transmitted Flagyl 10:45 Azathioprine Tablet PHA 02/03/25 Logged (Imuran Tablet) 10:45 Dicyclomine Capsule PHA 02/03/25 Logged (Bentyl Capsule) 22:00 Dietary Evaluation Review Comments: 1. Advance to diet when medically feasible: dairy-intolerance, but may have Italian yogurt, almond milk, herbal tea. 2. Ensure HP 240ml PO TID 3. accommondate his likes and dislike and monito PO intake to meet 100% of his needs Expected Outcomes/Goals: improved food tolerance, Gradual wt gain, Date of Service: Feb 03, 2025 Billing Provider: RAYMOND CERNA MD Common Visit Codes: [id number] INP/OBS CARE(HIGH) SAYDA LITTLE RESIDENT Feb 03, 2025 10:46 RAYMOND CERNA MD Feb 04, 2025 22:33
[2025-02-03] MEDS: TOFACITINIB CITRATE 10 MG PO SCH (13:10)
[2025-02-03] MEDS: DICYCLOMINE HCL 10 MG CAP PO SCH (20:11)
--- NOTE | 2025-02-03 22:07 | DVHPN2 ---
Progress Note - Dictate Date Seen: Feb 03, 2025 Medical Necessity Reason Pt with a Central, PICC or Fol: No Subjective Patient was seen at bedside He is still having multiple bowel movements Abdominal pain is improving pain medications He denies any bleeding Stool occult was positive, stool showed many WBCs Stool for C diff negative vital signs Vital Sign Date Time Temp Pulse Resp B/P (MAP) Pulse Ox O2 Delivery O2 Flow Rate FiO2 02/03/25 21:00 98.2 66 19 133/83 (100) 96 98.2 02/03/25 08:00 Room Air* 0 21 Total Intake and Output 02/02/25 02/02/25 02/03/25 15:00 23:00 07:00 Intake Total 50 ml 1600 ml 450 ml Balance 50 ml 1600 ml 450 ml medications Current Medications Medications Dose Ordered Sig/Aramis Route Start Time Stop Time Status Last Admin Dose Admin Acetaminophen 325 mg Q4HP PRN PO 01/29/25 20:45 Acetaminophen/ Hydrocodone Bitart 1 tab Q4HP PRN PO 01/29/25 20:45 02/03/25 19:58 1 TAB Ondansetron HCl 4 mg Q4HP PRN IV 01/29/25 20:45 01/31/25 23:00 4 MG Morphine Sulfate 2 mg Q4HPRN PRN IV 01/29/25 20:45 02/03/25 18:14 2 MG Nitroglycerin 0.4 mg Q5MINP PRN SL 01/29/25 20:45 Fluticasone Propionate 1 mcg DAILY EACHNOSTRI 01/30/25 10:00 Montelukast Sodium 10 mg DAILY PO 01/30/25 10:00 02/01/25 09:13 10 MG Mesalamine 800 mg TID PO 01/30/25 14:00 02/03/25 20:12 800 MG Enoxaparin Sodium 40 mg DAILY SC 01/31/25 10:00 02/03/25 09:37 40 MG Pantoprazole Sodium 40 mg DAILY IV 01/31/25 10:00 02/03/25 09:37 40 MG Loperamide HCl 2 mg PRN PRN PO 01/31/25 13:15 Saccharomyces Boulardii 250 mg BID PO 02/01/25 22:00 02/03/25 20:11 250 MG Prednisone 40 mg DAILY PO 02/03/25 10:00 02/03/25 09:37 40 MG Cholestyramine Resin 4 gm BID PO 02/02/25 22:00 02/03/25 09:37 4 GM Dicyclomine HCl 20 mg BID PO 02/03/25 22:00 02/03/25 20:11 20 MG Patient Own Medication 10 mg EOD PO 02/03/25 11:30 02/03/25 13:10 10 MG objective General examination- awake, alert, oriented HEENT- PEERLA, no acute nasal discharge Cardiovascular- S1-S2 audible, rate and rhythm regular, no murmur Respiratory- CTAB, no wheeze or rhonchi Gastrointestinal-tenderness in the left lower abdomen++, + bowel sound Musculoskeletal-no acute joint swelling or tenderness or redness Lower extremity- no leg edema Neurological- cranial nerves intact, no acute dysarthria or dysphagia Psychiatry- denies depression or SI or HI Skin- no acute rash or purpura laboratory and microbiology Laboratory Tests 02/03/25 06:54 Test 02/03/25 06:54 Range/Units Serum Glucose 109 H 74-106 mg/dL Problems(with codes): (1) Diarrhea (2) Ulcerative colitis (3) Abnormal finding on GI tract imaging (4) Abdominal pain Prognosis Plan Increase Questran to 4 g packet p.o. three times a day Imodium as needed diarrhea Prednisone 40 mg p.o. daily Mesalamine 800 mg p.o. three times a day Resume Imuran 50 mg p.o. daily Continue home medication of Xeljanz Outpatient follow up with GI Services to arrange outpatient biological possible trial of Tremfya Discharge planning in 24-48 hours once medically improved Advance to soft mechanical diet Dietary Evaluation Review Comments: 1. Advance to diet when medically feasible: dairy-intolerance, but may have German yogurt, almond milk, herbal tea. 2. Ensure HP 240ml PO TID 3. accommondate his likes and dislike and monito PO intake to meet 100% of his needs Expected Outcomes/Goals: improved food tolerance, Gradual wt gain, Plan discussed with: Patient, Other (Dr Carrion) MARLENE MEHTA MD Feb 03, 2025 22:07
[2025-02-03] MEDS: LOPERAMIDE HCL 2 MG CAP/TAB PO PRN (23:28)
[2025-02-04] VITALS (7 sets, daily range): BP systolic 124–134; BP diastolic 62–81; PULSE 52–75; RESP 16–20; TEMP 98.1–98.4; O2SAT 94–99
[2025-02-04 06:28] LABS: Hematocrit 29.9 % (41.0-53.0); Hemoglobin 10.2 g/dL (13.5-17.5); Mean Corpuscular Hemoglobin 27.2 pg (28.0-32.0); Mean Corpuscular Volume 79.5 fL (80.0-100.0)
[2025-02-04 06:54] LABS: Anion Gap 6 (5-15); Carbon Dioxide 29 mmol/L (20-31); Chloride 104 mmol/L (98-107); Potassium 3.9 mmol/L (3.5-5.1); Sodium 139 mmol/L (136-145)
[2025-02-04 06:59] LABS: Calcium 8.4 mg/dL (8.7-10.4)
[2025-02-04 07:00] LABS: BUN/Creatinine Ratio 11.4 (10.0-20.0); Glucose 81 mg/dL (74-106)
[2025-02-04 07:01] LABS: Blood Urea Nitrogen 8 mg/dL (9-23)
[2025-02-04 07:57] LABS: Total Cells Counted 100.0 (100)
--- NOTE | 2025-02-04 10:06 | DVHPNRES ---
Progress Note Date Seen: Feb 04, 2025 Resident Creating Document: TERRENCE PIERCE RESIDENT Medical Necessity Reason Pt with a Central, PICC or Fol: No Subjective Review of Systems Patient is 61 years old male with a past medical history of ulcerative colitis, diverticulitis, ONEAL, prostate carcinoma, status post prostatectomy in 2009 came with a complaint of abdominal pain. As per patient he has been having worsening abdominal pain, for past 5-6 weeks in the left lower quadrant, crampy, continuous, some relief with the pain medication which is getting worse over last 2 weeks, 03/16. Patient reported diarrhea almost 10-20 times a day, with the occasional blood with the stool. Patient also reported nausea, history of not regular diet eating due to fear of having nausea or vomiting if he eats. Mostly eating liquid diet or yogurt. Patient reported losing almost 20 lb over 1 month. Patient recently completed Medrol Dosepak and ciprofloxacin on Wednesday from Dr. Obregon outpatient clinic. Patient had colonoscopy done on 07/28/2024 which revealed residual sigmoid inflammation, sigmoid polyp 1-1.5 cm. Initial lab workup revealed WBC 4.1, hemoglobin 11.4, RDW 15.6, ESR 72, CRP 13.9, lipase 32, serum iron 9, TIBC 182, saturation 4.9, ferritin 107.6. UDS positive for cannabinoids. CT abdomen and pelvis revealed- Thickening and pericolonic inflammatory change involving the sigmoid and distal descending colon. Scattered diverticuli are noted. Findings most likely reflect acute colitis/diverticulitis. Recommend close follow-up to resolution to exclude any underlying neoplasm. PMH- ulcerative colitis, diverticulitis, idea, prostate carcinoma, status post prostatectomy in 2009 PSH- Status post prostatectomy, rotator cuff surgery, hand surgery the stiffness, status post left hip arthroplasty Allergy- NKDA Personal History/ Social History-quit smoking 20 years before, occasional alcoholic, use cannabinoids. Patient was seen today at the bedside. Cardiovascular- deny acute chest pain or shortness of breath or cough or palpitation Respiratory denies cough or short of breath or wheezing Musculoskeletal-denies acute joint swelling or tenderness or redness Neurological- denies acute dysarthria, dysphagia, change in vision Psychiatry- denies depression or SI or HI Skin- denies acute rash or purpura Patient was seen today at bedside, labs and chart reviewed. Patient reported pain overall improving but there is ongoing abdominal pain and frequent bowel movement overnight almost 6 times. Patient was seen by resident inspector. Recommended- Increase Questran to 4 g packet p.o. three times a day , Imodium as needed diarrhea Prednisone 40 mg p.o. daily , Mesalamine 800 mg p.o. three times a day, Resume Imuran 50 mg p.o. daily . Continue home medication of Xeljanz, Outpatient follow up with GI Services to arrange outpatient biological possible trial of Tremfya. Patient is on mechanical soft diet Objective vital signs Vital Sign Date Time Temp Pulse Resp B/P (MAP) Pulse Ox O2 Delivery O2 Flow Rate FiO2 02/04/25 09:18 65 20 132/80 02/04/25 09:00 98.4 97 98.4 02/03/25 20:00 Room Air* 0 21 Total Intake and Output 02/03/25 02/03/25 02/04/25 15:00 23:00 07:00 Intake Total 50 ml 800 ml 1200 ml Balance 50 ml 800 ml 1200 ml medications Current Medications Medications Dose Ordered Sig/Aramis Route Start Time Stop Time Status Last Admin Dose Admin Acetaminophen 325 mg Q4HP PRN PO 01/29/25 20:45 Acetaminophen/ Hydrocodone Bitart 1 tab Q4HP PRN PO 01/29/25 20:45 02/04/25 05:23 1 TAB Ondansetron HCl 4 mg Q4HP PRN IV 01/29/25 20:45 01/31/25 23:00 4 MG Morphine Sulfate 2 mg Q4HPRN PRN IV 01/29/25 20:45 02/04/25 09:18 2 MG Nitroglycerin 0.4 mg Q5MINP PRN SL 01/29/25 20:45 Fluticasone Propionate 1 mcg DAILY EACHNOSTRI 01/30/25 10:00 Montelukast Sodium 10 mg DAILY PO 01/30/25 10:00 02/04/25 09:09 10 MG Mesalamine 800 mg TID PO 01/30/25 14:00 02/04/25 05:19 800 MG Enoxaparin Sodium 40 mg DAILY SC 01/31/25 10:00 02/04/25 09:10 40 MG Pantoprazole Sodium 40 mg DAILY IV 01/31/25 10:00 02/04/25 09:09 40 MG Loperamide HCl 2 mg PRN PRN PO 01/31/25 13:15 02/04/25 05:19 2 MG Saccharomyces Boulardii 250 mg BID PO 02/01/25 22:00 02/04/25 09:09 250 MG Prednisone 40 mg DAILY PO 02/03/25 10:00 02/04/25 09:09 40 MG Cholestyramine Resin 4 gm BID PO 02/02/25 22:00 02/03/25 09:37 4 GM Dicyclomine HCl 20 mg BID PO 02/03/25 22:00 02/04/25 09:10 20 MG Patient Own Medication 10 mg EOD PO 02/03/25 11:30 02/03/25 13:10 10 MG Examination General examination- awake, alert, oriented HEENT- PEERLA, no acute nasal discharge Cardiovascular- S1-S2 audible, rate and rhythm regular, no murmur Respiratory- CTAB, no wheeze or rhonchi Gastrointestinal-tenderness in the left lower abdomen+, + bowel sound Musculoskeletal-no acute joint swelling or tenderness or redness Lower extremity- no leg edema Neurological- cranial nerves intact, no acute dysarthria or dysphagia Psychiatry- denies depression or SI or HI Skin- no acute rash or purpura laboratory and microbiology Laboratory Tests 02/04/25 04:57 Test 02/04/25 04:57 Range/Units Serum Glucose 81 74-106 mg/dL Microbiology Date/Time Source Procedure Growth Status 01/31/25 14:26 Stool Stool Culture - Final Complete 01/31/25 14:26 Stool Shiga Toxin I & II - Final Complete 01/30/25 08:53 Blood Blood Culture - Final NO GROWTH AFTER 5 DAYS OF INCUBATION. Complete Problem List/Assessment/Plan Problem List/Assessment/Plan Assessment and plan # acute on chronic abdominal pain # acute bloody diarrhea # rectal bleeding # suspected acute on chronic ulcerative colitis/diverticulitis # rule out Clostridium difficile colitis # history of 1+ internal hemorrhoid -- Colonoscopy done on 07/28/2024 and showed Patient had some residual sigmoid inflammation and sigmoiditis with some hyperemia erythema superficial mucopus and there were multiple pseudopolyps in this area from which biopsies were obtained - biopsy results showed no dysplasia or malignancy -on 02/01/2025 discontinued Zosyn, - continue ceftriaxone 1 g IV daily and continue metronidazole as prescribed -Clostridium difficile toxin negative. --stool culture enteric amparo -Gastroenterology recommendation reviewed and appreciated -Increase Questran to 4 g packet p.o. three times a day -Imodium as needed diarrhea -Prednisone 40 mg p.o. daily -Mesalamine 800 mg p.o. three times a day -Resume Imuran 50 mg p.o. daily -Continue home medication of Xeljanz -Outpatient follow up with GI Services to arrange outpatient biological possible trial of Seth # prostatic carcinoma, status post prostatectomy in 2009 -no acute sign or symptom of retention of urine -monitoring clinically # iron-deficiency anemia -iron supplement as prescribed # substance abuse cannabinoids -patient is counseled about the effect of substance abuse on health Goals of care, Code status ; full code, discussed with >15 minutes PUD prophylaxis: Pantoprazole DVT prophylaxis: Lovenox Plan discussed with Dr. Bernal , nursing staff, Total time spent on patient evaluation, chart review, assessment and plan, discussion discussion >35 minutes Plan discussed with: Patient, Other (RN) Dietary Evaluation Review Comments: 1. Advance to diet when medically feasible: dairy-intolerance, but may have Kyrgyz yogurt, almond milk, herbal tea. 2. Ensure HP 240ml PO TID 3. accommondate his likes and dislike and monito PO intake to meet 100% of his needs Expected Outcomes/Goals: improved food tolerance, Gradual wt gain, Date of Service: Feb 04, 2025 Billing Provider: RAYMOND CERNA MD Common Visit Codes: [id number] INP/OBS CARE(HIGH) TERRENCE PIERCE RESIDENT Feb 04, 2025 10:06 RAYMOND CERNA MD Feb 04, 2025 22:39
--- NOTE | 2025-02-04 16:47 | DVHPN2 ---
Progress Note - Dictate Date Seen: Feb 04, 2025 Medical Necessity Reason Pt with a Central, PICC or Fol: No Subjective Patient was seen at bedside He is still having multiple bowel movements up to 6 times last night and lower abd cramping and urgency Abdominal pain is improving with pain medications He denies any bleeding ; stool is starting to firm up slightly Patient is on a mechanical soft diet Stool occult was positive, stool showed many WBCs Stool for C diff negative vital signs Vital Sign Date Time Temp Pulse Resp B/P (MAP) Pulse Ox O2 Delivery O2 Flow Rate FiO2 02/04/25 15:24 67 18 124/62 02/04/25 13:00 98.1 94 98.1 02/04/25 08:00 Room Air* 0 21 Total Intake and Output 02/03/25 02/03/25 02/04/25 15:00 23:00 07:00 Intake Total 50 ml 800 ml 1200 ml Balance 50 ml 800 ml 1200 ml medications Current Medications Medications Dose Ordered Sig/Aramis Route Start Time Stop Time Status Last Admin Dose Admin Acetaminophen 325 mg Q4HP PRN PO 01/29/25 20:45 Acetaminophen/ Hydrocodone Bitart 1 tab Q4HP PRN PO 01/29/25 20:45 02/04/25 10:40 1 TAB Ondansetron HCl 4 mg Q4HP PRN IV 01/29/25 20:45 01/31/25 23:00 4 MG Morphine Sulfate 2 mg Q4HPRN PRN IV 01/29/25 20:45 02/04/25 15:24 2 MG Nitroglycerin 0.4 mg Q5MINP PRN SL 01/29/25 20:45 Fluticasone Propionate 1 mcg DAILY EACHNOSTRI 01/30/25 10:00 Montelukast Sodium 10 mg DAILY PO 01/30/25 10:00 02/04/25 09:09 10 MG Mesalamine 800 mg TID PO 01/30/25 14:00 02/04/25 15:18 800 MG Enoxaparin Sodium 40 mg DAILY SC 01/31/25 10:00 02/04/25 09:10 40 MG Pantoprazole Sodium 40 mg DAILY IV 01/31/25 10:00 02/04/25 09:09 40 MG Loperamide HCl 2 mg PRN PRN PO 01/31/25 13:15 02/04/25 05:19 2 MG Saccharomyces Boulardii 250 mg BID PO 02/01/25 22:00 02/04/25 09:09 250 MG Prednisone 40 mg DAILY PO 02/03/25 10:00 02/04/25 09:09 40 MG Cholestyramine Resin 4 gm BID PO 02/02/25 22:00 02/03/25 09:37 4 GM Dicyclomine HCl 20 mg BID PO 02/03/25 22:00 02/04/25 09:10 20 MG Patient Own Medication 10 mg EOD PO 02/03/25 11:30 02/03/25 13:10 10 MG Azathioprine 50 mg DAILY PO 02/04/25 10:15 02/04/25 10:33 50 MG objective General examination- awake, alert, oriented HEENT- PEERLA, no acute nasal discharge Cardiovascular- S1-S2 audible, rate and rhythm regular, no murmur Respiratory- CTAB, no wheeze or rhonchi Gastrointestinal-tenderness in the left lower abdomen++, + bowel sound Musculoskeletal-no acute joint swelling or tenderness or redness Lower extremity- no leg edema Neurological- cranial nerves intact, no acute dysarthria or dysphagia Psychiatry- denies depression or SI or HI Skin- no acute rash or purpura laboratory and microbiology Laboratory Tests 02/04/25 04:57 Test 02/04/25 04:57 Range/Units Serum Glucose 81 74-106 mg/dL Problems(with codes): (1) Diarrhea (2) Abnormal finding on GI tract imaging (3) Ulcerative colitis Prognosis Plan I discussed the option colonoscopy for re-evaluation with the patient He wishes to defer the colonoscopy at this time as he does not want to do the bowel prep Patient will be given trial of Rowasa enema if it is available to help with rectosigmoid inflammation Increase Questran to 4 g packet p.o. three times a day , Imodium as needed diarrhea, Bentyl 20 mg p.o. twice a day Prednisone 40 mg p.o. daily , Mesalamine 800 mg p.o. three times a day, Resume Imuran 50 mg p.o. daily . Continue home medication of Xeljanz, Outpatient follow up with GI Services to arrange outpatient biological possible trial of Tremfya. Dietary Evaluation Review Comments: 1. Advance to diet when medically feasible: dairy-intolerance, but may have Danish yogurt, almond milk, herbal tea. 2. Ensure HP 240ml PO TID 3. accommondate his likes and dislike and monito PO intake to meet 100% of his needs Expected Outcomes/Goals: improved food tolerance, Gradual wt gain, Plan discussed with: Patient MARLENE MEHTA MD Feb 04, 2025 16:47
[2025-02-04] MEDS: MESALAMINE 4 GM/60 ML RC PR SCH (22:49)
[2025-02-05] VITALS (8 sets, daily range): BP systolic 111–138; BP diastolic 66–81; PULSE 63–72; RESP 12–19; TEMP 97–98.4; O2SAT 97–98
[2025-02-05 06:31] LABS: Alanine Aminotransferase 10 U/L (7-40); Alkaline Phosphatase 49 U/L (46-116); Anion Gap 6 (5-15); BUN/Creatinine Ratio 9.2 (10.0-20.0); Carbon Dioxide 30 mmol/L (20-31); Chloride 102 mmol/L (98-107); Glucose 80 mg/dL (74-106); Magnesium 2.0 mg/dL (1.6-2.6); Potassium 4.4 mmol/L (3.5-5.1); Sodium 138 mmol/L (136-145)
[2025-02-05 06:36] LABS: Albumin 3.0 g/dL (3.2-4.8); Bilirubin, Total 0.2 mg/dL (0.2-1.0); Blood Urea Nitrogen 7 mg/dL (9-23); Calcium 8.3 mg/dL (8.7-10.4); Total Protein 5.2 g/dL (5.7-8.2)
[2025-02-05 07:34] LABS: Hematocrit 31.4 % (41.0-53.0); Hemoglobin 10.6 g/dL (13.5-17.5); Mean Corpuscular Hemoglobin 26.8 pg (28.0-32.0); Mean Corpuscular Volume 79.6 fL (80.0-100.0)
[2025-02-05 09:21] LABS: Nucleated Red Blood Cells % 1.0 %; Total Cells Counted 100.0 (100)
--- NOTE | 2025-02-05 09:36 | DVHPN2 ---
Progress Note - Dictate Date Seen: Feb 05, 2025 Medical Necessity Reason Pt with a Central, PICC or Fol: No Subjective No new complaints Still with diarrhoea and urgency Abdominal pain is improving with pain medications He denies any bleeding ; stool is starting to firm up slightly Patient is on a mechanical soft diet Stool occult was positive, stool showed many WBCs Stool for C diff negative vital signs Vital Sign Date Time Temp Pulse Resp B/P (MAP) Pulse Ox O2 Delivery O2 Flow Rate FiO2 02/05/25 09:00 98.4 72 19 111/68 (82) 97 98.4 02/04/25 20:00 Room Air* 0 21 Total Intake and Output 02/04/25 02/04/25 02/05/25 15:00 23:00 07:00 Intake Total 480 ml 800 ml 500 ml Balance 480 ml 800 ml 500 ml medications Current Medications Medications Dose Ordered Sig/Aramis Route Start Time Stop Time Status Last Admin Dose Admin Acetaminophen 325 mg Q4HP PRN PO 01/29/25 20:45 Acetaminophen/ Hydrocodone Bitart 1 tab Q4HP PRN PO 01/29/25 20:45 02/04/25 23:36 1 TAB Ondansetron HCl 4 mg Q4HP PRN IV 01/29/25 20:45 01/31/25 23:00 4 MG Morphine Sulfate 2 mg Q4HPRN PRN IV 01/29/25 20:45 02/04/25 21:22 2 MG Nitroglycerin 0.4 mg Q5MINP PRN SL 01/29/25 20:45 Fluticasone Propionate 1 mcg DAILY EACHNOSTRI 01/30/25 10:00 Montelukast Sodium 10 mg DAILY PO 01/30/25 10:00 02/04/25 09:09 10 MG Mesalamine 800 mg TID PO 01/30/25 14:00 02/05/25 05:43 800 MG Enoxaparin Sodium 40 mg DAILY SC 01/31/25 10:00 02/04/25 09:10 40 MG Pantoprazole Sodium 40 mg DAILY IV 01/31/25 10:00 02/04/25 09:09 40 MG Loperamide HCl 2 mg PRN PRN PO 01/31/25 13:15 02/05/25 05:47 2 MG Saccharomyces Boulardii 250 mg BID PO 02/01/25 22:00 02/04/25 21:32 250 MG Prednisone 40 mg DAILY PO 02/03/25 10:00 02/04/25 09:09 40 MG Cholestyramine Resin 4 gm BID PO 02/02/25 22:00 02/03/25 09:37 4 GM Dicyclomine HCl 20 mg BID PO 02/03/25 22:00 02/04/25 21:33 20 MG Patient Own Medication 10 mg EOD PO 02/03/25 11:30 02/03/25 13:10 10 MG Azathioprine 50 mg DAILY PO 02/04/25 10:15 02/04/25 10:33 50 MG Mesalamine 4 gm HS MD 02/04/25 22:00 02/04/25 22:49 4 GM objective General examination- awake, alert, oriented HEENT- PEERLA, no acute nasal discharge Cardiovascular- S1-S2 audible, rate and rhythm regular, no murmur Respiratory- CTAB, no wheeze or rhonchi Gastrointestinal-tenderness in the left lower abdomen++, + bowel sound Musculoskeletal-no acute joint swelling or tenderness or redness Lower extremity- no leg edema Neurological- cranial nerves intact, no acute dysarthria or dysphagia Psychiatry- denies depression or SI or HI Skin- no acute rash or purpura laboratory and microbiology Laboratory Tests 02/05/25 04:52 Test 02/05/25 04:52 Range/Units Serum Glucose 80 74-106 mg/dL Problems(with codes): (1) Diarrhea (2) Abnormal finding on GI tract imaging (3) Ulcerative colitis Prognosis Plan I discussed the option of colonoscopy for re-evaluation with the patient He wishes to defer the colonoscopy at this time as he does not want to do the bowel prep Patient was given Rowasa enema to help with rectosigmoid inflammation Increase Questran to 4 g packet p.o. two times a day , Imodium as needed diarrhea, Bentyl 20 mg p.o. twice a day Prednisone 40 mg p.o. daily , Mesalamine 800 mg p.o. three times a day, Resume Imuran 50 mg p.o. daily . Continue home medication of Xeljanz, Outpatient follow up with GI Services to arrange outpatient biological possible trial of Tremfya. Discharge planning in progress Dietary Evaluation Review Comments: 1. Advance to diet when medically feasible: dairy-intolerance, but may have Telugu yogurt, almond milk, herbal tea. 2. Ensure HP 240ml PO TID 3. accommondate his likes and dislike and monito PO intake to meet 100% of his needs Expected Outcomes/Goals: improved food tolerance, Gradual wt gain, Plan discussed with: Other (Dr Gomes) MARLENE MEHTA MD Feb 05, 2025 09:36
--- NOTE | 2025-02-05 10:56 | DVHPN2 ---
Progress Note - Dictate Date Seen: Feb 05, 2025 Medical Necessity Reason Pt with a Central, PICC or Fol: No Subjective No new complaints Still with diarrhoea and urgency Abdominal pain is improving with pain medications He denies any bleeding ; stool is starting to firm up slightly Patient is on a mechanical soft diet Stool occult was positive, stool showed many WBCs Stool for C diff negative vital signs Vital Sign Date Time Temp Pulse Resp B/P (MAP) Pulse Ox O2 Delivery O2 Flow Rate FiO2 02/05/25 09:00 98.4 72 19 111/68 (82) 97 98.4 02/04/25 20:00 Room Air* 0 21 Total Intake and Output 02/04/25 02/04/25 02/05/25 15:00 23:00 07:00 Intake Total 480 ml 800 ml 500 ml Balance 480 ml 800 ml 500 ml medications Current Medications Medications Dose Ordered Sig/Aramis Route Start Time Stop Time Status Last Admin Dose Admin Acetaminophen 325 mg Q4HP PRN PO 01/29/25 20:45 Acetaminophen/ Hydrocodone Bitart 1 tab Q4HP PRN PO 01/29/25 20:45 02/05/25 09:28 1 TAB Ondansetron HCl 4 mg Q4HP PRN IV 01/29/25 20:45 01/31/25 23:00 4 MG Morphine Sulfate 2 mg Q4HPRN PRN IV 01/29/25 20:45 02/04/25 21:22 2 MG Nitroglycerin 0.4 mg Q5MINP PRN SL 01/29/25 20:45 Fluticasone Propionate 1 mcg DAILY EACHNOSTRI 01/30/25 10:00 Montelukast Sodium 10 mg DAILY PO 01/30/25 10:00 02/05/25 09:28 10 MG Mesalamine 800 mg TID PO 01/30/25 14:00 02/05/25 05:43 800 MG Enoxaparin Sodium 40 mg DAILY SC 01/31/25 10:00 02/05/25 09:28 40 MG Pantoprazole Sodium 40 mg DAILY IV 01/31/25 10:00 02/05/25 09:28 40 MG Loperamide HCl 2 mg PRN PRN PO 01/31/25 13:15 02/05/25 05:47 2 MG Saccharomyces Boulardii 250 mg BID PO 02/01/25 22:00 02/05/25 09:28 250 MG Prednisone 40 mg DAILY PO 02/03/25 10:00 02/05/25 09:28 40 MG Cholestyramine Resin 4 gm BID PO 02/02/25 22:00 02/03/25 09:37 4 GM Dicyclomine HCl 20 mg BID PO 02/03/25 22:00 02/05/25 09:51 20 MG Patient Own Medication 10 mg EOD PO 02/03/25 11:30 02/03/25 13:10 10 MG Azathioprine 50 mg DAILY PO 02/04/25 10:15 02/05/25 09:29 50 MG Mesalamine [address] 02/04/25 22:00 02/04/25 22:49 4 GM objective General examination- awake, alert, oriented HEENT- PEERLA, no acute nasal discharge Cardiovascular- S1-S2 audible, rate and rhythm regular, no murmur Respiratory- CTAB, no wheeze or rhonchi Gastrointestinal-tenderness in the left lower abdomen++, + bowel sound Musculoskeletal-no acute joint swelling or tenderness or redness Lower extremity- no leg edema Neurological- cranial nerves intact, no acute dysarthria or dysphagia Psychiatry- denies depression or SI or HI Skin- no acute rash or purpura laboratory and microbiology Laboratory Tests 02/05/25 04:52 Test 02/05/25 04:52 Range/Units Serum Glucose 80 74-106 mg/dL Prognosis Plan Patient has change his mind and would like get a sigmoidoscopy/ colonoscopy done prior to discharge Patient liquid diet, give him a bowel prep tonight and schedule colonoscopy 02/06/2025 Dietary Evaluation Review Comments: 1. Advance to diet when medically feasible: dairy-intolerance, but may have [place] yogurt, almond milk, herbal tea. 2. Ensure HP 240ml PO TID 3. accommondate his likes and dislike and monito PO intake to meet 100% of his needs Expected Outcomes/Goals: improved food tolerance, Gradual wt gain, Plan discussed with: Other (Dr Gomes) MARLENE MEHTA MD Feb 05, 2025 10:56
--- NOTE | 2025-02-05 13:24 | DVHPNRES ---
Progress Note Date Seen: Feb 05, 2025 Resident Creating Document: TERRENCE PIERCE RESIDENT Medical Necessity Reason Pt with a Central, PICC or Fol: No Subjective Review of Systems Patient is 61 years old male with a past medical history of ulcerative colitis, diverticulitis, ONEAL, prostate carcinoma, status post prostatectomy in 2009 came with a complaint of abdominal pain. As per patient he has been having worsening abdominal pain, for past 5-6 weeks in the left lower quadrant, crampy, continuous, some relief with the pain medication which is getting worse over last 2 weeks, 03/16. Patient reported diarrhea almost 10-20 times a day, with the occasional blood with the stool. Patient also reported nausea, history of not regular diet eating due to fear of having nausea or vomiting if he eats. Mostly eating liquid diet or yogurt. Patient reported losing almost 20 lb over 1 month. Patient recently completed Medrol Dosepak and ciprofloxacin on Wednesday from Dr. Obregon outpatient clinic. Patient had colonoscopy done on 07/28/2024 which revealed residual sigmoid inflammation, sigmoid polyp 1-1.5 cm. Initial lab workup revealed WBC 4.1, hemoglobin 11.4, RDW 15.6, ESR 72, CRP 13.9, lipase 32, serum iron 9, TIBC 182, saturation 4.9, ferritin 107.6. UDS positive for cannabinoids. CT abdomen and pelvis revealed- Thickening and pericolonic inflammatory change involving the sigmoid and distal descending colon. Scattered diverticuli are noted. Findings most likely reflect acute colitis/diverticulitis. Recommend close follow-up to resolution to exclude any underlying neoplasm. PMH- ulcerative colitis, diverticulitis, idea, prostate carcinoma, status post prostatectomy in 2009 PSH- Status post prostatectomy, rotator cuff surgery, hand surgery the stiffness, status post left hip arthroplasty Allergy- NKDA Personal History/ Social History-quit smoking 20 years before, occasional alcoholic, use cannabinoids. Patient was seen today at the bedside. Cardiovascular- deny acute chest pain or shortness of breath or cough or palpitation Respiratory denies cough or short of breath or wheezing Musculoskeletal-denies acute joint swelling or tenderness or redness Neurological- denies acute dysarthria, dysphagia, change in vision Psychiatry- denies depression or SI or HI Skin- denies acute rash or purpura Patient was seen today at bedside, labs and chart reviewed. Patient reported his abdominal pain is improving. Patient was seen by chemical research worker Dr. Obregon. As per Gastroenterology initially patient refused colonoscopy/sigmoidoscopy but later on he changes mind and he agreed to do colonoscopy/sigmoidoscopy tomorrow on 02/06/2025. Patient is a scheduled for sigmoidoscopy/colonoscopy tomorrow. Patient is on liquid diet. Objective vital signs Vital Sign Date Time Temp Pulse Resp B/P (MAP) Pulse Ox O2 Delivery O2 Flow Rate FiO2 02/05/25 12:56 68 18 117/66 02/05/25 09:00 98.4 97 98.4 02/05/25 08:00 Room Air* 0 21 Total Intake and Output 02/04/25 02/04/25 02/05/25 15:00 23:00 07:00 Intake Total 480 ml 800 ml 500 ml Balance 480 ml 800 ml 500 ml medications Current Medications Medications Dose Ordered Sig/Aramis Route Start Time Stop Time Status Last Admin Dose Admin Acetaminophen 325 mg Q4HP PRN PO 01/29/25 20:45 Acetaminophen/ Hydrocodone Bitart 1 tab Q4HP PRN PO 01/29/25 20:45 02/05/25 09:28 1 TAB Ondansetron HCl 4 mg Q4HP PRN IV 01/29/25 20:45 01/31/25 23:00 4 MG Morphine Sulfate 2 mg Q4HPRN PRN IV 01/29/25 20:45 02/05/25 12:56 2 MG Nitroglycerin 0.4 mg Q5MINP PRN SL 01/29/25 20:45 Fluticasone Propionate 1 mcg DAILY EACHNOSTRI 01/30/25 10:00 Montelukast Sodium 10 mg DAILY PO 01/30/25 10:00 02/05/25 09:28 10 MG Mesalamine 800 mg TID PO 01/30/25 14:00 02/05/25 05:43 800 MG Enoxaparin Sodium 40 mg DAILY SC 01/31/25 10:00 02/05/25 09:28 40 MG Pantoprazole Sodium 40 mg DAILY IV 01/31/25 10:00 02/05/25 09:28 40 MG Loperamide HCl 2 mg PRN PRN PO 01/31/25 13:15 02/05/25 05:47 2 MG Saccharomyces Boulardii 250 mg BID PO 02/01/25 22:00 02/05/25 09:28 250 MG Prednisone 40 mg DAILY PO 02/03/25 10:00 02/05/25 09:28 40 MG Cholestyramine Resin 4 gm BID PO 02/02/25 22:00 02/03/25 09:37 4 GM Dicyclomine HCl 20 mg BID PO 02/03/25 22:00 02/05/25 09:51 20 MG Patient Own Medication 10 mg EOD PO 02/03/25 11:30 02/03/25 13:10 10 MG Azathioprine 50 mg DAILY PO 02/04/25 10:15 02/05/25 09:29 50 MG Mesalamine 4 gm HS [place] 02/04/25 22:00 02/04/25 22:49 4 GM Examination General examination- awake, alert, oriented HEENT- PEERLA, no acute nasal discharge Cardiovascular- S1-S2 audible, rate and rhythm regular, no murmur Respiratory- CTAB, no wheeze or rhonchi Gastrointestinal-tenderness in the left lower abdomen+, + bowel sound Musculoskeletal-no acute joint swelling or tenderness or redness Lower extremity- no leg edema Neurological- cranial nerves intact, no acute dysarthria or dysphagia Psychiatry- denies depression or SI or HI Skin- no acute rash or purpura laboratory and microbiology Laboratory Tests 02/05/25 04:52 Test 02/05/25 04:52 Range/Units Serum Glucose 80 74-106 mg/dL Microbiology Date/Time Source Procedure Growth Status 01/31/25 14:26 Stool Stool Culture - Final Complete 01/31/25 14:26 Stool Shiga Toxin I & II - Final Complete 01/30/25 08:53 Blood Blood Culture - Final NO GROWTH AFTER 5 DAYS OF INCUBATION. Complete Problem List/Assessment/Plan Problem List/Assessment/Plan Assessment and plan # acute on chronic abdominal pain # acute bloody diarrhea # rectal bleeding # suspected acute on chronic ulcerative colitis/diverticulitis # rule out Clostridium difficile colitis # history of 1+ internal hemorrhoid -- Colonoscopy done on 07/28/2024 and showed Patient had some residual sigmoid inflammation and sigmoiditis with some hyperemia erythema superficial mucopus and there were multiple pseudopolyps in this area from which biopsies were obtained - biopsy results showed no dysplasia or malignancy -on 02/01/2025 discontinued Zosyn, - continue ceftriaxone 1 g IV daily and continue metronidazole as prescribed -Clostridium difficile toxin negative. --stool culture enteric amparo -Gastroenterology recommendation reviewed and appreciated-PATIENT IS SCHEDULED FOR COLONOSCOPY/SIGMOIDOSCOPY TOMORROW 02/06/2025 -Increase Questran to 4 g packet p.o. three times a day -Imodium as needed diarrhea -Prednisone 40 mg p.o. daily -Mesalamine 800 mg p.o. three times a day -Resume Imuran 50 mg p.o. daily -Continue home medication of Xeljanz -Outpatient follow up with GI Services to arrange outpatient biological possible trial of Seth # prostatic carcinoma, status post prostatectomy in 2009 -no acute sign or symptom of retention of urine -monitoring clinically # iron-deficiency anemia -iron supplement as prescribed # substance abuse cannabinoids -patient is counseled about the effect of substance abuse on health Goals of care, Code status ; full code, discussed with >15 minutes PUD prophylaxis: Pantoprazole DVT prophylaxis: Lovenox Plan discussed with Dr. Bernal , nursing staff, Total time spent on patient evaluation, chart review, assessment and plan, discussion discussion >35 minutes Plan discussed with: Patient, Spouse, Other (RN) My Orders My Orders Orders - TERRENCE PIERCE RESIDENT Procedure Category Date Status Time Clear Liq Diet DIET 02/05/25 Transmitted Lunch Communication Order ORDERS 02/05/25 Transmitted 10:56 * [employer] Supervisor CONS 02/05/25 Transmitted Consult Dietary Evaluation Review Comments: 1. Advance to diet when medically feasible: dairy-intolerance, but may have Kyrgyz yogurt, almond milk, herbal tea. 2. Ensure HP 240ml PO TID 3. accommondate his likes and dislike and monito PO intake to meet 100% of his needs Expected Outcomes/Goals: improved food tolerance, Gradual wt gain, Date of Service: Feb 05, 2025 Billing Provider: RAYMOND CERNA MD Common Visit Codes: [id number] INP/OBS CARE(HIGH) TERRENCE PIERCE RESIDENT Feb 05, 2025 13:24 RAYMOND CERNA MD Feb 11, 2025 23:42
[2025-02-05] MEDS: MAGNESIUM CITRATE SOLUTION 300 ML BTL PO ONE ×2 (15:00→21:54)
[2025-02-06] VITALS (8 sets, daily range): BP systolic 96–119; BP diastolic 59–80; PULSE 63–109; RESP 17–20; TEMP 97.7–99.4; O2SAT 95–98
[2025-02-06] MEDS: MAGNESIUM CITRATE SOLUTION 300 ML BTL PO ONE (05:04)
[2025-02-06 05:54] LABS: Alkaline Phosphatase 50 U/L (46-116); Anion Gap 6 (5-15); BUN/Creatinine Ratio 10.1 (10.0-20.0); Carbon Dioxide 31 mmol/L (20-31); Chloride 103 mmol/L (98-107); Glucose 94 mg/dL (74-106); Magnesium 2.3 mg/dL (1.6-2.6); Potassium 3.6 mmol/L (3.5-5.1); Sodium 140 mmol/L (136-145)
[2025-02-06 05:58] LABS: Alanine Aminotransferase < 9 U/L (7-40); Albumin 3.1 g/dL (3.2-4.8); Bilirubin, Total 0.3 mg/dL (0.2-1.0); Blood Urea Nitrogen 7 mg/dL (9-23); Calcium 8.2 mg/dL (8.7-10.4); Total Protein 5.3 g/dL (5.7-8.2)
[2025-02-06 06:17] LABS: Hemoglobin 10.3 g/dL (13.5-17.5); Mean Corpuscular Volume 80.2 fL (80.0-100.0)
[2025-02-06 06:21] LABS: Hematocrit 30.1 % (41.0-53.0); Mean Corpuscular Hemoglobin 27.6 pg (28.0-32.0)
[2025-02-06 06:46] LABS: Total Cells Counted 100.0 (100)
--- NOTE | 2025-02-06 09:41 | DVHDSRES ---
Discharge Summary Date of Admission Resident Creating Document: TERRENCE PIERCE RESIDENT Jan 29, 2025 at 20:34 Date of Discharge: Feb 02, 2025 Admitting Diagnosis Acute exacerbation of ulcerative colitis Labs/Diagnostic Data: Laboratory Results Test 02/06/25 04:22 02/05/25 04:52 02/04/25 04:57 02/02/25 05:10 White Blood Count 4.5 10^3/uL (4.4-10.8) Red Blood Count 3.75 10^6/uL (4.5-5.90) Hemoglobin 10.3 g/dL (13.5-17.5) Hematocrit 30.1 % (41.0-53.0) Mean Corpuscular Volume 80.2 fL (80.0-100.0) Mean Corpuscular Hemoglobin 27.6 pg (28.0-32.0) Mean Corpuscular Hemoglobin Concent 34.4 g/dL (32.0-36.0) Red Cell Distribution Width 15.9 % (11.8-14.3) Platelet Count 440 10^3/uL (140-450) Mean Platelet Volume 7.3 fL (6.9-10.8) Neutrophils (%) (Auto) % (37.0-80.0) Lymphocytes (%) (Auto) % (10.0-50.0) Monocytes (%) (Auto) % (0.0-12.0) Basophils (%) (Auto) % (0.0-2.0) Neutrophils # (Auto) 10 ^3/uL (1.6-8.6) Lymphocytes # (Auto) 10 ^3/uL (0.4-5.4) Monocytes # (Auto) 10 ^3/uL (0-1.3) Differential Total Cells Counted 100.0 (100) Neutrophils % (Manual) 59 (37.0-80.0) Band Neutrophils % (Manual) 9 Lymphocytes % (Manual) 19 (10.0-50.0) Monocytes % (Manual) 12 (0-12) Eosinophils % (Manual) 1 (0-7) Basophils % (Manual) 0 (0.0-2.0) Metamyelocytes % (manual) 0 Myelocytes % (Manual) 0 Promyelocytes % (Manual) 0 Blast Cells % (Manual) 0 Reactive Lymphocytes 0 Platelet Estimate Adequate Sodium Level 140 mmol/L (136-145) Potassium Level 3.6 mmol/L (3.5-5.1) Chloride Level 103 mmol/L (98-107) Carbon Dioxide Level 31 mmol/L (20-31) Anion Gap 6 (5-15) Blood Urea Nitrogen 7 mg/dL (9-23) Creatinine 0.69 mg/dL (0.700-1.30) Glomerular Filtration Rate Calc 100 mL/min (>90) BUN/Creatinine Ratio 10.1 (10.0-20.0) Serum Glucose 94 mg/dL (74-106) Calcium Level 8.2 mg/dL (8.7-10.4) Magnesium Level 2.3 mg/dL (1.6-2.6) Total Bilirubin 0.3 mg/dL (0.2-1.0) Aspartate Amino Transferase (AST) 9 U/L (13-40) Alanine Aminotransferase (ALT) < 9 U/L (7-40) Alkaline Phosphatase 50 U/L (46-116) Total Protein 5.3 g/dL (5.7-8.2) Albumin 3.1 g/dL (3.2-4.8) Nucleated Red Blood Cells 1.0 % Microcytosis Slight Eosinophils (%) (Auto) 0.0 % (0.0-7.0) Eosinophils # (Auto) 0 10 ^3/uL (0-0.8) Basophils # (Auto) 0 10 ^3/uL (0-0.2) C-Reactive Protein High Sensitivity 3.59 mg/dL (<1.0) Test 02/01/25 11:17 01/30/25 11:15 01/30/25 03:32 01/29/25 23:33 Stool Occult Blood Positive (Negative) Stool Occult Blood Sample #3 (Negative) Stool for White Cells Many Erythrocyte Sedimentation Rate 72 mm/hr (0-20) Hemoglobin A1c 5.5 % A1C (<5.7) Ferritin 107.6 ng/mL (22-322) B-Type Natriuretic Peptide 10.50 pg/mL (0-100) Troponin I High Sensitivity < 3 ng/L (</=54) Test 01/29/25 22:04 01/29/25 18:45 Urine Color Kenzie (Yellow) Urine Clarity Hazy (Clear) Urine pH 6.0 (5.0-9.0) Urine Specific [place] 1.020 (1.001-1.035) Urine Protein 1+ (Negative) Urine Ketones 3+ (Negative) Urine Blood 3+ /uL (Negative) Urine Nitrite Negative (Negative) Urine Bilirubin Negative (Negative) Urine Urobilinogen Normal mg/dL (Negative) Urine Leukocyte Esterase Negative /uL (Negative) Urine RBC 28 /hpf (0 - 3) Urine Microscopic WBC 3 /HPF (0-3) Urine Squamous Epithelial Cells Few /hpf (<5) Urine Bacteria None seen /hpf (None Seen) Urine Mucus Many (None Seen) Urine Glucose Normal mg/dL (Normal) Urine Opiates Screen Pos (NEGATIVE) Urine Fentanyl Screen Neg (NEGATIVE) Urine Barbiturates Screen Neg (NEGATIVE) Urine Phencyclidine Screen Neg (NEGATIVE) Urine Amphetamines Screen Neg (NEGATIVE) Urine Benzodiazepines Screen Neg (NEGATIVE) Urine Cocaine Screen Neg (NEGATIVE) Urine Cannabinoids Screen Pos (NEGATIVE) Prothrombin Time 11.5 sec (9.3-11.8) Prothrombin Time INR 1.09 (0.9-1.15) Activated Partial Thromboplast Time 33.8 SEC (24.5-34.5) Lactic Acid Level 0.9 mmol/L (0.4-2.0) Iron Level 9 ug/dL (65-175) Total Iron Binding Capacity 182 ug/dL (250-425) Percent Iron Saturation 4.9 % (20-55) Lipase 22 U/L (12-53) Thyroid Stimulating Hormone (TSH) 1.50 uIU/mL (0.55-4.78) Other Laboratory Tests 02/06/25 04:22 Brief Hx & Hospital Course: HPI- Patient is 61 years old male with a past medical history of ulcerative colitis, diverticulitis, ONEAL, prostate carcinoma, status post prostatectomy in 2009 came with a complaint of abdominal pain. As per patient he has been having worsening abdominal pain, for past 5-6 weeks in the left lower quadrant, crampy, continuous, some relief with the pain medication which is getting worse over last 2 weeks, 03/16. Patient reported diarrhea almost 10-20 times a day, with the occasional blood with the stool. Patient also reported nausea, history of not regular diet eating due to fear of having nausea or vomiting if he eats. Mostly eating liquid diet or yogurt. Patient reported losing almost 20 lb over 1 month. Patient recently completed Medrol Dosepak and ciprofloxacin on Wednesday from Dr. Obregon outpatient clinic. Patient had colonoscopy done on 07/28/2024 which revealed residual sigmoid inflammation, sigmoid polyp 1-1.5 cm. Initial lab workup revealed WBC 4.1, hemoglobin 11.4, RDW 15.6, ESR 72, CRP 13.9, lipase 32, serum iron 9, TIBC 182, saturation 4.9, ferritin 107.6. UDS positive for cannabinoids. CT abdomen and pelvis revealed- Thickening and pericolonic inflammatory change involving the sigmoid and distal descending colon. Scattered diverticuli are noted. Findings most likely reflect acute colitis/diverticulitis. Recommend close follow-up to resolution to exclude any underlying neoplasm. Hospital course-Patient is 61 years old male with a past medical history of ulcerative colitis, diverticulitis, ONEAL, prostate carcinoma, status post prostatectomy in 2009 came with a complaint of abdominal pain. As per patient he has been having worsening abdominal pain, for past 5-6 weeks in the left lower quadrant, crampy, continuous, some relief with the pain medication which is getting worse over last 2 weeks, 03/16. Patient reported diarrhea almost 10-20 times a day, with the occasional blood with the stool. Patient also reported nausea, history of not regular diet eating due to fear of having nausea or vomiting if he eats. Mostly eating liquid diet or yogurt. Patient reported losing almost 20 lb over 1 month. Patient recently completed Medrol Dosepak and ciprofloxacin on Wednesday from Dr. Obregon outpatient clinic. Patient had colonoscopy done on 07/28/2024 which revealed residual sigmoid inflammation, sigmoid polyp 1-1.5 cm. Initial lab workup revealed WBC 4.1, hemoglobin 11.4, RDW 15.6, ESR 72, CRP 13.9, lipase 32, serum iron 9, TIBC 182, saturation 4.9, ferritin 107.6. UDS positive for cannabinoids. CT abdomen and pelvis revealed- Thickening and pericolonic inflammatory change involving the sigmoid and distal descending colon. Scattered diverticuli are noted. Findings most likely reflect acute colitis/diverticulitis. Recommend close follow-up to resolution to exclude any underlying neoplasm. Clostridium difficile toxin was negative. Patient was treated conservatively, patient had IV methylprednisolone, ongoing mesalamine and azithromycin. Patient was seen by Gastroenterology, patient's symptoms improved gradually, no colonoscopy was done during hospitalization. Patient is being discharged home with the advice to follow up with the mechanical detailer in 2 weeks, and also with primary care physician in 1 week. Patient was hemodynamically stable on discharge. Assessment # acute on chronic abdominal pain # acute bloody diarrhea # rectal bleeding # suspected acute on chronic ulcerative colitis/diverticulitis # rule out Clostridium difficile colitis # history of 1+ internal hemorrhoid # prostatic carcinoma, status post prostatectomy in 2009 # iron-deficiency anemia # substance abuse cannabinoids # lactose intolerance Plan Please follow up with the primary care physician in 1 week Please follow up with mechanical detailer Dr. Obregon in 2 weeks Resume home medications Avoid dehydration and constipation Avoid dairy products Consults/Reason for consult Patient: SRAVAN HERNANDEZ Acct: [id number] : 1955 Loc: [facility] Age/Sex: 69/M [id number] Progress Note - Dictate Date Seen: Feb 05, 2025 Medical Necessity Reason Pt with a Central, PICC or Fol: No Subjective No new complaints Still with diarrhoea and urgency Abdominal pain is improving with pain medications He denies any bleeding ; stool is starting to firm up slightly Patient is on a mechanical soft diet Stool occult was positive, stool showed many WBCs Stool for C diff negative vital signs Vital Sign Date Time Temp Pulse Resp B/P (MAP) Pulse Ox O2 Delivery O2 Flow Rate FiO2 02/05/25 09:00 98.4 72 19 111/68 (82) 97 98.4 02/04/25 20:00 Room Air* 0 21 Total Intake and Output 02/04/25 02/04/25 02/05/25 15:00 23:00 07:00 Intake Total 480 ml 800 ml 500 ml Balance 480 ml 800 ml 500 ml medications Current Medications Medications Dose Ordered Sig/Aramis Route Start Time Stop Time Status Last Admin Dose Admin Acetaminophen 325 mg Q4HP PRN PO 01/29/25 20:45 Acetaminophen/ Hydrocodone Bitart 1 tab Q4HP PRN PO 01/29/25 20:45 02/05/25 09:28 1 TAB Ondansetron HCl 4 mg Q4HP PRN IV 01/29/25 20:45 01/31/25 23:00 4 MG Morphine Sulfate 2 mg Q4HPRN PRN IV 01/29/25 20:45 02/04/25 21:22 2 MG Nitroglycerin 0.4 mg Q5MINP PRN SL 01/29/25 20:45 Fluticasone Propionate 1 mcg DAILY EACHNOSTRI 01/30/25 10:00 Montelukast Sodium 10 mg DAILY PO 01/30/25 10:00 02/05/25 09:28 10 MG Mesalamine 800 mg TID PO 01/30/25 14:00 02/05/25 05:43 800 MG Enoxaparin Sodium 40 mg DAILY SC 01/31/25 10:00 02/05/25 09:28 40 MG Pantoprazole Sodium 40 mg DAILY IV 01/31/25 10:00 02/05/25 09:28 40 MG Loperamide HCl 2 mg PRN PRN PO 01/31/25 13:15 02/05/25 05:47 2 MG Saccharomyces Boulardii 250 mg BID PO 02/01/25 22:00 02/05/25 09:28 250 MG Prednisone 40 mg DAILY PO 02/03/25 10:00 02/05/25 09:28 40 MG Cholestyramine Resin 4 gm BID PO 02/02/25 22:00 02/03/25 09:37 4 GM Dicyclomine HCl 20 mg BID PO 02/03/25 22:00 02/05/25 09:51 20 MG Patient Own Medication 10 mg EOD PO 02/03/25 11:30 02/03/25 13:10 10 MG Azathioprine 50 mg DAILY PO 02/04/25 10:15 02/05/25 09:29 50 MG Mesalamine 4 gm HS NE 02/04/25 22:00 02/04/25 22:49 4 GM objective General examination- awake, alert, oriented HEENT- PEERLA, no acute nasal discharge Cardiovascular- S1-S2 audible, rate and rhythm regular, no murmur Respiratory- CTAB, no wheeze or rhonchi Gastrointestinal-tenderness in the left lower abdomen++, + bowel sound Musculoskeletal-no acute joint swelling or tenderness or redness Lower extremity- no leg edema Neurological- cranial nerves intact, no acute dysarthria or dysphagia Psychiatry- denies depression or SI or HI Skin- no acute rash or purpura laboratory and microbiology Laboratory Tests 02/05/25 04:52 Test 02/05/25 04:52 Range/Units Serum Glucose 80 74-106 mg/dL Prognosis Plan Patient has change his mind and would like get a sigmoidoscopy/ colonoscopy done prior to discharge Patient liquid diet, give him a bowel prep tonight and schedule colonoscopy 02/06/2025 Dietary Evaluation Review Comments: 1. Advance to diet when medically feasible: dairy-intolerance, but may have Malagasy yogurt, almond milk, herbal tea. 2. Ensure HP 240ml PO TID 3. accommondate his likes and dislike and monito PO intake to meet 100% of his needs Expected Outcomes/Goals: improved food tolerance, Gradual wt gain, Plan discussed with: Other (Dr Pierce) MARLENE OBREGON MD Feb 05, 2025 10:56 E/M VISIT PERFORMED BY: TRANSCRIBED BY:MARLENE OBREGON MD TRANSCRIBED DATE/TIME:02/05/25 105 ELECTRONICALLY SIGNED BY:MARLENE OBREGON MD 02/05/25 105 ELECTRONICALLY CO-SIGNED BY: Patient: SRAVAN HRENANDEZ Acct: [id number] : 1955 Loc: [facility] Age/Sex: 69/M [id number] Progress Note - Dictate Date Seen: Feb 04, 2025 Medical Necessity Reason Pt with a Central, PICC or Fol: No Subjective Patient was seen at bedside He is still having multiple bowel movements up to 6 times last night and lower abd cramping and urgency Abdominal pain is improving with pain medications He denies any bleeding ; stool is starting to firm up slightly Patient is on a mechanical soft diet Stool occult was positive, stool showed many WBCs Stool for C diff negative vital signs Vital Sign Date Time Temp Pulse Resp B/P (MAP) Pulse Ox O2 Delivery O2 Flow Rate FiO2 02/04/25 15:24 67 18 124/62 02/04/25 13:00 98.1 94 98.1 02/04/25 08:00 Room Air* 0 21 Total Intake and Output 02/03/25 02/03/25 02/04/25 15:00 23:00 07:00 Intake Total 50 ml 800 ml 1200 ml Balance 50 ml 800 ml 1200 ml medications Current Medications Medications Dose Ordered Sig/Aramis Route Start Time Stop Time Status Last Admin Dose Admin Acetaminophen 325 mg Q4HP PRN PO 01/29/25 20:45 Acetaminophen/ Hydrocodone Bitart 1 tab Q4HP PRN PO 01/29/25 20:45 02/04/25 10:40 1 TAB Ondansetron HCl 4 mg Q4HP PRN IV 01/29/25 20:45 01/31/25 23:00 4 MG Morphine Sulfate 2 mg Q4HPRN PRN IV 01/29/25 20:45 02/04/25 15:24 2 MG Nitroglycerin 0.4 mg Q5MINP PRN SL 01/29/25 20:45 Fluticasone Propionate 1 mcg DAILY EACHNOSTRI 01/30/25 10:00 Montelukast Sodium 10 mg DAILY PO 01/30/25 10:00 02/04/25 09:09 10 MG Mesalamine 800 mg TID PO 01/30/25 14:00 02/04/25 15:18 800 MG Enoxaparin Sodium 40 mg DAILY SC 01/31/25 10:00 02/04/25 09:10 40 MG Pantoprazole Sodium 40 mg DAILY IV 01/31/25 10:00 02/04/25 09:09 40 MG Loperamide HCl 2 mg PRN PRN PO 01/31/25 13:15 02/04/25 05:19 2 MG Saccharomyces Boulardii 250 mg BID PO 02/01/25 22:00 02/04/25 09:09 250 MG Prednisone 40 mg DAILY PO 02/03/25 10:00 02/04/25 09:09 40 MG Cholestyramine Resin 4 gm BID PO 02/02/25 22:00 02/03/25 09:37 4 GM Dicyclomine HCl 20 mg BID PO 02/03/25 22:00 02/04/25 09:10 20 MG Patient Own Medication 10 mg EOD PO 02/03/25 11:30 02/03/25 13:10 10 MG Azathioprine 50 mg DAILY PO 02/04/25 10:15 02/04/25 10:33 50 MG objective General examination- awake, alert, oriented HEENT- PEERLA, no acute nasal discharge Cardiovascular- S1-S2 audible, rate and rhythm regular, no murmur Respiratory- CTAB, no wheeze or rhonchi Gastrointestinal-tenderness in the left lower abdomen++, + bowel sound Musculoskeletal-no acute joint swelling or tenderness or redness Lower extremity- no leg edema Neurological- cranial nerves intact, no acute dysarthria or dysphagia Psychiatry- denies depression or SI or HI Skin- no acute rash or purpura laboratory and microbiology Laboratory Tests 02/04/25 04:57 Test 8/31/25 04:57 Range/Units Serum Glucose 81 74-106 mg/dL Problems(with codes): (1) Diarrhea (2) Abnormal finding on GI tract imaging (3) Ulcerative colitis Prognosis Plan I discussed the option colonoscopy for re-evaluation with the patient He wishes to defer the colonoscopy at this time as he does not want to do the bowel prep Patient will be given trial of Rowasa enema if it is available to help with rectosigmoid inflammation Increase Questran to 4 g packet p.o. three times a day , Imodium as needed diarrhea, Bentyl 20 mg p.o. twice a day Prednisone 40 mg p.o. daily , Mesalamine 800 mg p.o. three times a day, Resume Imuran 50 mg p.o. daily . Continue home medication of Xeljanz, Outpatient follow up with GI Services to arrange outpatient biological possible trial of Tremfya. Dietary Evaluation Review Comments: 1. Advance to diet when medically feasible: dairy-intolerance, but may have Malagasy yogurt, almond milk, herbal tea. 2. Ensure HP 240ml PO TID 3. accommondate his likes and dislike and monito PO intake to meet 100% of his needs Expected Outcomes/Goals: improved food tolerance, Gradual wt gain, Plan discussed with: Patient MARLENE OBREGON MD Feb 04, 2025 16:47 E/M VISIT PERFORMED BY: TRANSCRIBED BY:MARLENE OBREGON MD TRANSCRIBED DATE/TIME:02/04/251646 ELECTRONICALLY SIGNED BY:MARLENE OBREGON MD 02/04/251646 ELECTRONICALLY CO-SIGNED BY: Operations or Procedures [place] [address] Ph: [phone] DIAGNOSTIC IMAGING Diagnostic Imaging Report : [id number] Signed PATIENT: SRAVAN HERNANDEZ ACCT: [id number] UNIT: [id number] : 1955 LOC: ER ROOM / BED: / AGE / SEX: 69 / M ADM STATUS: REG ER SERVICE 25 ORDERING PHYSICIAN: JAQUAN LEONARDO DO PROCEDURE(s): ABPL - CT AB PEL WO CON-NO ORAL OR IV REASON: abd pain ORDER NUMBER(s): [id number], ACCESSION NUMBER(s): [id number] CT SCAN ABDOMEN AND PELVIS WITHOUT CONTRAST CLINICAL HISTORY: abd pain TECHNIQUE: Helical axial images are obtained from the lung bases through the pelvis without oral contrast. No intravenous contrast was administered. Coronal and sagittal reformatted images were generated from thin section reconstructions. One or more of the following radiation dose reduction techniques were used for this examination: automated exposure control, adjustment of the mA and/or kV according to patient size, use of iterative reconstruction technique. COMPARISON: 04/02/2021 FINDINGS: LOWER THORAX: Imaged lung bases are grossly clear. ABDOMEN AND PELVIS: Evaluation of visceral and vascular structures is limited due to lack of contrast administration. Stable appearing scattered cystic hypodensities mainly seen in the hepatic dome. Gallbladder is mildly distended. No sizable, radiopaque cholelithiasis or biliary ductal dilatation. The unenhanced pancreas, spleen and adrenals appear grossly unremarkable. No hydroureteronephrosis or sizable, obstructing urinary tract calculi identified. Aortoiliac atherosclerotic calcifications. No evidence of abdominal aortic aneurysm. No evidence of small-bowel obstruction. Thickening of the sigmoid and distal descending colon with pericolonic fat stranding. A few scattered diverticuli are noted. Streak artifact from the left hip arthroplasty hardware limits evaluation of the rectosigmoid region. As visualized, no sizable pericolonic fluid collections identified. No definite evidence of pneumoperitoneum. Appendix is again noted to be prominent in caliber, measuring approximately 1.2 cm in diameter. There is fat deposition within the appendiceal wall which may be sequelae of chronic inflammatory disease. No sizable appendicolith or periappendiceal fluid collections. No definite bladder calculus. Multilevel degenerative changes of the thoracic and lumbar spine. IMPRESSION: Thickening and pericolonic inflammatory change involving the sigmoid and distal descending colon. Scattered diverticuli are noted. Findings most likely reflect acute colitis/diverticulitis. Recommend close follow-up to resolution to exclude any underlying neoplasm. Other chronic-appearing findings as above. ATED BY: JOSE MARIA CHILEL MD DICTATED DATE/TIME: 01/29/251934 SIGNED BY: JOSE MARIA CHILEL MD SIGNED DATE/TIME: 01/29/251934 CC: Condition at Discharge: Stable Final Diagnosis/Problems List # acute on chronic abdominal pain # acute bloody diarrhea # rectal bleeding # suspected acute on chronic ulcerative colitis/diverticulitis # rule out Clostridium difficile colitis # history of 1+ internal hemorrhoid # prostatic carcinoma, status post prostatectomy in 2009 # iron-deficiency anemia # substance abuse cannabinoids Discharge Disposition: Home Discharge Instruct/Medications Diet comment: Lactose-free diet Follow Up/Referral: Please follow up with the primary care physician in 1 week Please follow up with mechanical detailer Dr. Obregon in 2 weeks Medications: Resume home medications Avoid dehydration and constipation Avoid dairy products Scheduled Azathioprine (Imuran), 1 TAB PO DAILY, (Reported) Ferrous Sulfate (Ferosul), 325 MG PO BID, (Reported) Mesalamine (Lialda), 1.2 GM PO DAILY, (Reported) Montelukast Sodium (Montelukast Sodium), 1 TAB PO DAILY, (Reported) Tofacitinib Citrate (Xeljanz), 10 MG PO EOD, (Reported) Miscellaneous Medications Fluticasone Propionate (Nasal) (Fluticasone Propionate), 1 SPRAY CRISTOFER, (Reported) Discharge Statement: "Patient was advised to return to the ER or call 911 if any headaches, dizziness, shortness of breath, chest pain, abdominal pain, bleeding, fevers, or worsening of medical condition. Patient was counseled about treatment plan, medications, possible side effects, patientverbalized understanding. All questions were answered to the best of my ability. This discharge took greater then 30 minutes in planning, reviewing documentation, counseling the patient, and discussing with other team members." ASSESSMENT ASSESSMENT Assessment TERRENCE PIERCE RESIDENT Feb 06, 2025 09:41
--- NOTE | 2025-02-06 11:08 | DVH ---
EXAM: XY CHEST XRAY 1 VIEW HISTORY: GI Procedure COMPARISON: CHEST XRAY 1 VIEW on DOS: 03/03/22, CHEST PORTABLE on DOS: 04/02/21 TECHNIQUE: Portable upright AP view of the chest was performed. FINDINGS: There is mild elevation of the right hemidiaphragm. There is central peribronchial thickening. No pn eumothorax, consolidative infiltrates, or pulmonary edema. The heart is not enlarged. There is thorac ic spondylosis and mild dextroscoliosis. IMPRESSION: 1. Reactive airways disease. 2. The lungs are otherwise clear.
[2025-02-06] MEDS ORDERED: PROPOFOL 10 MG/ML 20 ML IV ONE (14:05)
--- NOTE | 2025-02-06 14:43 | DVHOP2 ---
Operative Report DATE OF OPERATION: 02/06/25 PROCEDURE: Income Colonoscopy/sigmoidoscopy. PREOPERATIVE INDICATION: The patient is a 69 -year-old male undergoing colonoscopy for evaluation of suspected acute ulcerative colitis flare-up POSTOPERATIVE DIAGNOSES: 1. Patient had severe colitis up to and beyond the extent of the examination to about 30 cm above the anal verge with hyperemia erythema mucopus deep aphthous like ulcerations and pseudopolyps Limited study due to poor prep with large amount of liquid brown stool in the colon PROCEDURE PERFORMED BY: Marlene Obregon M.D. SCOPE: Olympus videocolonoscope. ASA CLASS: 3 PREOPERATIVE MEDICATIONS: Mac rosa m, Florin Brasher PROCEDURE IN DETAIL: After obtaining an informed consent, the patient was placed on left lateral decubitus position. He was then sedated with the above medications. A rectal examination was performed that was normal. The colonoscope was then passed through the anus into the rectosigmoid. The patient had [id number] colitis with deep aphthous like ulcerations surrounding hyperemia erythema spasm and pseudopolyps There was also suggestion of some diverticular disease and a moderate amount of stool output but no clear-cut fistula was detected The colonoscope could not be advanced safely beyond this area and multiple biopsies were obtained from the rectosigmoid. The colonoscope was then withdrawn. The patient tolerated the procedure well without difficulty. WITHDRAWAL TIME: Not applicable QUALITY OF THE PREP: [place] Bowel Prep score: Not applicable, poor prep COMPLICATIONS : None SPECIMENS: Rectosigmoid biopsies DISPOSITION: Transfer back to the floor Stable PLAN: 1. Keep NPO except for ice chips 2. Patient will likely need possible PICC line and TPN 3. IV Solu-Medrol 40 mg q.8 hours 4. IV Flagyl 500 mg q.8 hours plan 5.Check labs including IBD panel 6. CT scan of the abdomen pelvis with oral and IV contrast 7. Surgical consult pending results of the CT scan of the abdomen pelvis to consider possible colectomy 8. Patient will likely need treatment with biological agent and may need referral to higher level of care if IV Remicade or IV cyclosporin is required MARLENE OBREGON MD Feb 06, 2025 14:43
[2025-02-06] MEDS ORDERED: hydrALAZINE HCL 20 MG/ML VL IV PRN (14:45)
[2025-02-06] MEDS ORDERED: NALOXONE HCL 0.4 MG/ML VIAL IV PRN (14:45)
[2025-02-06] MEDS ORDERED: fentaNYL CITRATE 100 MCG/2 ML VL IV PRN (14:45)
[2025-02-06] MEDS ORDERED: FLUMAZENIL 0.1 MG/ML INJ 10ML MDV IV PRN (14:45)
[2025-02-06] MEDS ORDERED: HYDROmorphone HCL 2 MG/ML VL/or syr IV PRN (14:45)
[2025-02-06] MEDS ORDERED: ONDANSETRON HCL 4 MG/2 ML VIAL IV PRN (14:45)
--- NOTE | 2025-02-06 15:14 | DVHPNRES ---
Progress Note Date Seen: Feb 06, 2025 Resident Creating Document: TERRENCE PIERCE RESIDENT Medical Necessity Reason Pt with a Central, PICC or Fol: No Subjective Review of Systems Patient is 61 years old male with a past medical history of ulcerative colitis, diverticulitis, ONEAL, prostate carcinoma, status post prostatectomy in 2009 came with a complaint of abdominal pain. As per patient he has been having worsening abdominal pain, for past 5-6 weeks in the left lower quadrant, crampy, continuous, some relief with the pain medication which is getting worse over last 2 weeks, 03/16. Patient reported diarrhea almost 10-20 times a day, with the occasional blood with the stool. Patient also reported nausea, history of not regular diet eating due to fear of having nausea or vomiting if he eats. Mostly eating liquid diet or yogurt. Patient reported losing almost 20 lb over 1 month. Patient recently completed Medrol Dosepak and ciprofloxacin on Wednesday from Dr. Obregon outpatient clinic. Patient had colonoscopy done on 07/28/2024 which revealed residual sigmoid inflammation, sigmoid polyp 1-1.5 cm. Initial lab workup revealed WBC 4.1, hemoglobin 11.4, RDW 15.6, ESR 72, CRP 13.9, lipase 32, serum iron 9, TIBC 182, saturation 4.9, ferritin 107.6. UDS positive for cannabinoids. CT abdomen and pelvis revealed- Thickening and pericolonic inflammatory change involving the sigmoid and distal descending colon. Scattered diverticuli are noted. Findings most likely reflect acute colitis/diverticulitis. Recommend close follow-up to resolution to exclude any underlying neoplasm. PMH- ulcerative colitis, diverticulitis, idea, prostate carcinoma, status post prostatectomy in 2009 PSH- Status post prostatectomy, rotator cuff surgery, hand surgery the stiffness, status post left hip arthroplasty Allergy- NKDA Personal History/ Social History-quit smoking 20 years before, occasional alcoholic, use cannabinoids. Patient was seen today at the bedside. Cardiovascular- deny acute chest pain or shortness of breath or cough or palpitation Respiratory denies cough or short of breath or wheezing Musculoskeletal-denies acute joint swelling or tenderness or redness Neurological- denies acute dysarthria, dysphagia, change in vision Psychiatry- denies depression or SI or HI Skin- denies acute rash or purpura Patient was seen today at bedside, labs and chart reviewed. Patient reported ongoing abdominal pain. Patient had colonoscopy today which revealed-Patient had severe colitis up to and beyond the extent of the examination to about 30 cm above the anal verge with hyperemia erythema mucopus deep aphthous like ulcerations and pseudopolyps Gastroenterology recommended -Keep NPO except for ice chips -IV Solu-Medrol 40 mg q.8 hours -IV Flagyl 500 mg q.8 hours plan -Check labs including IBD panel -CT scan of the abdomen pelvis with oral and IV contrast -Surgical consult pending results of the CT scan of the abdomen pelvis to consider possible colectomy -Patient will likely need treatment with biological agent and may need referral to higher level of care if IV Remicade or IV cyclosporin is required Objective vital signs Vital Sign Date Time Temp Pulse Resp B/P (MAP) Pulse Ox O2 Delivery O2 Flow Rate FiO2 02/06/25 13:00 99.0 109 19 101/64 (76) 95 99.0 02/06/25 08:00 Room Air* 0 21 Total Intake and Output 02/05/25 02/05/25 02/06/25 15:00 23:00 07:00 Intake Total 500 ml 350 ml Balance 500 ml 350 ml medications Current Medications Medications Dose Ordered Sig/Aramis Route Start Time Stop Time Status Last Admin Dose Admin Acetaminophen 325 mg Q4HP PRN PO 01/29/25 20:45 Acetaminophen/ Hydrocodone Bitart 1 tab Q4HP PRN PO 01/29/25 20:45 02/05/25 22:11 1 TAB Ondansetron HCl 4 mg Q4HP PRN IV 01/29/25 20:45 01/31/25 23:00 4 MG Morphine Sulfate 2 mg Q4HPRN PRN IV 01/29/25 20:45 02/06/25 10:06 2 MG Nitroglycerin 0.4 mg Q5MINP PRN SL 01/29/25 20:45 Fluticasone Propionate 1 mcg DAILY EACHNOSTRI 01/30/25 10:00 Montelukast Sodium 10 mg DAILY PO 01/30/25 10:00 02/06/25 10:00 10 MG Mesalamine 800 mg TID PO 01/30/25 14:00 02/05/25 21:55 800 MG Enoxaparin Sodium 40 mg DAILY SC 01/31/25 10:00 02/06/25 10:00 40 MG Pantoprazole Sodium 40 mg DAILY IV 01/31/25 10:00 02/06/25 09:59 40 MG Loperamide HCl 2 mg PRN PRN PO 01/31/25 13:15 02/05/25 05:47 2 MG Saccharomyces Boulardii 250 mg BID PO 02/01/25 22:00 02/06/25 10:18 250 MG Cholestyramine Resin 4 gm BID PO 02/02/25 22:00 02/03/25 09:37 4 GM Dicyclomine HCl 20 mg BID PO 02/03/25 22:00 02/06/25 10:00 20 MG Patient Own Medication 10 mg EOD PO 02/03/25 11:30 02/05/25 10:00 10 MG Azathioprine 50 mg DAILY PO 02/04/25 10:15 02/06/25 10:01 50 MG Mesalamine 4 gm HS [place] 02/04/25 22:00 02/04/25 22:49 4 GM Hydralazine HCl 5 mg Q10M PRN IV 02/06/25 14:45 02/06/25 15:36 Ephedrine Sulfate 10 mg Q10M PRN IV 02/06/25 14:45 02/06/25 15:26 Hydromorphone HCl 0.5 mg Q10M PRN IV 02/06/25 14:45 02/06/25 15:26 Metronidazole 100 ml @ 100 mls/hr Q8HR IV 02/06/25 22:00 Methylprednisolone Sodium Succinate 40 mg Q8HR IV 02/06/25 22:00 Amino Acids 0 ml @ 0 mls/hr PER PHARMACY IV 02/06/25 15:15 Examination General examination- awake, alert, oriented HEENT- PEERLA, no acute nasal discharge Cardiovascular- S1-S2 audible, rate and rhythm regular, no murmur Respiratory- CTAB, no wheeze or rhonchi Gastrointestinal-tenderness in the left lower abdomen+, + bowel sound Musculoskeletal-no acute joint swelling or tenderness or redness Lower extremity- no leg edema Neurological- cranial nerves intact, no acute dysarthria or dysphagia Psychiatry- denies depression or SI or HI Skin- no acute rash or purpura laboratory and microbiology Laboratory Tests 02/06/25 04:22 Test 02/06/25 04:22 Range/Units Serum Glucose 94 74-106 mg/dL Microbiology Date/Time Source Procedure Growth Status 01/31/25 14:26 Stool Stool Culture - Final Complete 01/31/25 14:26 Stool Shiga Toxin I & II - Final Complete 01/30/25 08:53 Blood Blood Culture - Final NO GROWTH AFTER 5 DAYS OF INCUBATION. Complete Problem List/Assessment/Plan Problem List/Assessment/Plan Assessment and plan # acute on chronic abdominal pain # acute bloody diarrhea # rectal bleeding # suspected acute on chronic ulcerative colitis/diverticulitis # rule out Clostridium difficile colitis # history of 1+ internal hemorrhoid -colonoscopy done on 02/06/2025-severe colitis up to and beyond the extent of the examination to about 30 cm above the anal verge with hyperemia erythema mucopus deep aphthous like ulcerations and pseudopolyps -- Colonoscopy done on 07/28/2024 and showed Patient had some residual sigmoid inflammation and sigmoiditis with some hyperemia erythema superficial mucopus and there were multiple pseudopolyps in this area from which biopsies were obtained - biopsy results showed no dysplasia or malignancy -on 02/01/2025 discontinued Zosyn, - continue ceftriaxone 1 g IV daily and continue metronidazole as prescribed -Clostridium difficile toxin negative. --stool culture enteric amparo -Gastroenterology recommendation reviewed and appreciated - Questran to 4 g packet p.o. three times a day -Imodium as needed diarrhea -methylprednisolone as prescribed -Mesalamine 800 mg p.o. three times a day -Resume Imuran 50 mg p.o. daily -Continue home medication of Xeljanz -GI recommended-Keep NPO except for ice chips -IV Solu-Medrol 40 mg q.8 hours -IV Flagyl 500 mg q.8 hours plan -Check labs including IBD panel -CT scan of the abdomen pelvis with oral and IV contrast -Surgical consult pending results of the CT scan of the abdomen pelvis to consider possible colectomy -Patient will likely need treatment with biological agent and may need referral to higher level of care if IV Remicade or IV cyclosporin is required # prostatic carcinoma, status post prostatectomy in 2009 -no acute sign or symptom of retention of urine -monitoring clinically # iron-deficiency anemia -iron supplement as prescribed # substance abuse cannabinoids -patient is counseled about the effect of substance abuse on health Goals of care, Code status ; full code, discussed with >15 minutes PUD prophylaxis: Pantoprazole DVT prophylaxis: Lovenox Plan discussed with Dr. Bernal , nursing staff, Total time spent on patient evaluation, chart review, assessment and plan, discussion discussion >35 minutes Plan discussed with: Patient, Other Dietary Evaluation Review Comments: 1. Advance to diet when medically feasible: dairy-intolerance, but may have [place] yogurt, almond milk, herbal tea. 2. Ensure HP 240ml PO TID 3. accommondate his likes and dislike and monito PO intake to meet 100% of his needs Expected Outcomes/Goals: improved food tolerance, Gradual wt gain, Date of Service: Feb 06, 2025 Billing Provider: RAYMOND CERNA MD Common Visit Codes: [id number] INP/OBS CARE(HIGH) TERRENCE PIERCE RESIDENT Feb 06, 2025 15:14 GIOVANNI BENNETT RESIDENT Feb 06, 2025 18:59 RAYMOND CERNA MD Feb 12, 2025 00:07
[2025-02-06] MEDS ORDERED: CLINIMIX PER PHARMACY 0 ML IV SCH (15:15)
[2025-02-06] MEDS: AMINO ACID INFUSION IN D10W 1,000 ML IV SCH (19:43)
[2025-02-06] MEDS: methylPREDNISolone SOD SUCC 40 MG/ML VL IV SCH (21:37)
[2025-02-07] VITALS (7 sets, daily range): BP systolic 105–126; BP diastolic 56–70; PULSE 16–61; RESP 14–20; TEMP 97.6–97.9; O2SAT 95–99
[2025-02-07] MEDS: InsuLIN REG 1unit/0.01ml Soln (100units/ml) SC SCH
[2025-02-07] MEDS ORDERED: DEXTROSE (50%) 50ML SYRG IV SCH
[2025-02-07] MEDS: ACCU-CHEK COMFORT CURVE STRIP VI SCH
[2025-02-07 05:06] LABS: Hematocrit 30.8 % (41.0-53.0); Hemoglobin 10.4 g/dL (13.5-17.5); Mean Corpuscular Hemoglobin 27.1 pg (28.0-32.0); Mean Corpuscular Volume 80.6 fL (80.0-100.0); Nucleated Red Blood Cells % 0.0 %
[2025-02-07 05:14] LABS: Chloride 104.0 mmol/L (98-107); Potassium 4.7 mmol/L (3.5-5.1); Sodium 140.0 mmol/L (136-145)
[2025-02-07 05:15] LABS: Anion Gap 6.0 (5-15); Carbon Dioxide 30.0 mmol/L (20-31)
[2025-02-07 05:21] LABS: BUN/Creatinine Ratio 14.6 (10.0-20.0); Blood Urea Nitrogen 12.0 mg/dL (9-23); Magnesium 2.5 mg/dL (1.6-2.6)
[2025-02-07 05:29] LABS: Albumin 3.0 g/dL (3.2-4.8); Calcium 8.2 mg/dL (8.7-10.4); Glucose 155.0 mg/dL (74-106)
[2025-02-07] MEDS ORDERED: OMNIPAQUE 12mg/ml 500ml ORAL SOLUTION PO ONE (07:12)
[2025-02-07] MEDS ORDERED: IOHEXOL 300 MG/ML 100ML BOTTLE IJ ONE (10:13)
--- NOTE | 2025-02-07 11:38 | DVH ---
Indication: SEVERE COLITIS; r//o free air ; fistula ;extent of inflammat Technique: CT axial images of the abdomen and pelvis are obtained with intravenous contrast. Coronal and sagittal reformats were obtained. Radiation Dose Information: CTDI volume is 10.73 mGy. Dose-length product is 594.98 mGy*cm Comparison: 01/29/2025 FINDINGS: Lung bases demonstrate no pleural effusion. Adrenal glands, spleen, pancreas unremarkable. Hepatic cysts measuring up to 1.[address] evidence f or cholelithiasis. Kidneys demonstrate no hydronephrosis. Stomach is partially distended. Small bowel loops are moderately distended. Severe bowel wall thickening of the rectosigmoid colon with mucosal hyperemia. Moderate volume stool in the colon. Underlying colonic diverticular disease No secondary signs for appendicitis.m perirecta l lymph nodes measuring up to 7 mm Abdominal aortic atherosclerotic disease, tortuosity. Bladder partially distended. Trace free pelvic fluid. No inguinal lymphadenopathy. Left hip arthroplasty. [id number] bilateral sacroiliac degenerative joint disease. Moderate to advanced thoracolumbar degenerative disc disease. Thoracolumbar levocurvature. Moderate to advanced thoracolumbar degenerative disc disease most pronou nced at L3-4, L4-5 and L5-S1. IMPRESSION: Severe rectosigmoid colon wall thickening, mucosal hyperemia which can be seen with colitis, inflamma tory bowel disease. There are also underlying colonic diverticulum which could represent synchronous diverticulitis of th e rectosigmoid colon. Recommend colonoscopy once acute symptoms resolve to exclude underlying colonic lesion/ neoplasm. Other findings as described.
--- NOTE | 2025-02-07 11:51 | ECG ---
[facility] Test Date: 2025-02-06 Test Time: 11:13:53 Pat Name: SRAVAN HERNANDEZ Department: Respiratoy Room: 0201 A Gender: M [employer]electric Plant Operator: TANVI : 1955 Requested By: MARLENE MEHTA Order Number: [id number] Reading MD: Hua Blair Measurements Intervals [place] Rate: 100 P: 52 WY: 141 QRS: 35 QRSD: 90 T: 18 QT: 332 QTc: 429 Interpretive Statements Sinus tachycardia Borderline low voltage, extremity leads Abnormal R-wave progression, late transition ST elevation, consider lateral injury Electronically Signed On 02-08-2025 14:33:22 PDT by Hua Blair Please click the below link to view image of tracing.
[2025-02-07] MEDS ORDERED: LIDOCAINE HCL 100 MG/5ML (2%) SYRG INJ IV ONE (13:18)
--- NOTE | 2025-02-07 13:33 | DVHPN2 ---
Progress Note - Dictate Date Seen: Feb 07, 2025 Medical Necessity Reason Pt with a Central, PICC or Fol: No Subjective PATIENT IS RESTING COMFORTABLY HE HAS NOT HAD ANY FURTHER DIARRHEA SINCE LAST NIGHT REPEAT CT SHOWS MODERATE INFLAMMATORY CHANGES IN THE RECTOSIGMOID WITHOUT ANY EVIDENCE OF ABSCESS OR PERFORATION ABDOMINAL PAIN IS IMPROVING vital signs Vital Sign Date Time Temp Pulse Resp B/P (MAP) Pulse Ox O2 Delivery O2 Flow Rate FiO2 02/07/25 12:30 97.9 61 17 108/64 (79) 98 97.9 02/06/25 20:00 Room Air* 0 21 Total Intake and Output 02/06/25 02/06/25 02/07/25 15:00 23:00 07:00 Intake Total 20 ml 500 ml Balance 20 ml 500 ml medications Current Medications Medications Dose Ordered Sig/Aramis Route Start Time Stop Time Status Last Admin Dose Admin Acetaminophen 325 mg Q4HP PRN PO 01/29/25 20:45 Acetaminophen/ Hydrocodone Bitart 1 tab Q4HP PRN PO 01/29/25 20:45 02/05/25 22:11 1 TAB Ondansetron HCl 4 mg Q4HP PRN IV 01/29/25 20:45 01/31/25 23:00 4 MG Morphine Sulfate 2 mg Q4HPRN PRN IV 01/29/25 20:45 02/07/25 05:12 2 MG Nitroglycerin 0.4 mg Q5MINP PRN SL 01/29/25 20:45 Fluticasone Propionate 1 mcg DAILY EACHNOSTRI 01/30/25 10:00 Montelukast Sodium 10 mg DAILY PO 01/30/25 10:00 02/06/25 10:00 10 MG Mesalamine 800 mg TID PO 01/30/25 14:00 02/05/25 21:55 800 MG Enoxaparin Sodium 40 mg DAILY SC 01/31/25 10:00 02/07/25 09:27 40 MG Pantoprazole Sodium 40 mg DAILY IV 01/31/25 10:00 02/07/25 09:21 40 MG Loperamide HCl 2 mg PRN PRN PO 01/31/25 13:15 02/05/25 05:47 2 MG Saccharomyces Boulardii 250 mg BID PO 02/01/25 22:00 02/06/25 10:18 250 MG Cholestyramine Resin 4 gm BID PO 02/02/25 22:00 02/03/25 09:37 4 GM Dicyclomine HCl 20 mg BID PO 02/03/25 22:00 02/06/25 10:00 20 MG Patient Own Medication 10 mg EOD PO 02/03/25 11:30 02/05/25 10:00 10 MG Azathioprine 50 mg DAILY PO 02/04/25 10:15 02/06/25 10:01 50 MG Mesalamine 4 gm HS [place] 02/04/25 22:00 02/04/25 22:49 4 GM Metronidazole 100 ml @ 100 mls/hr Q8HR IV 02/06/25 22:00 02/07/25 05:02 100 MLS/HR Methylprednisolone Sodium Succinate 40 mg Q8HR IV 02/06/25 22:00 02/07/25 05:06 40 MG Amino Acids 0 ml @ 0 mls/hr PER PHARMACY IV 02/06/25 15:15 Diagnostic Test (Pha) 1 strip Q6HR 02/07/25 00:00 02/07/25 11:23 1 STRIP Insulin Human Regular FOLLOW SLIDING SCALE Q6HR SC 02/07/25 00:00 02/07/25 05:23 2 UNITS Dextrose 50 ml UD IV 02/07/25 00:00 Amino Acids/ Electrolytes/ Dextrose 1,000 ml @ 41 mls/hr DAILY@2200 IV 02/06/25 22:00 02/06/25 19:43 41 MLS/HR objective General examination- awake, alert, oriented HEENT- PEERLA, no acute nasal discharge Cardiovascular- S1-S2 audible, rate and rhythm regular, no murmur Respiratory- CTAB, no wheeze or rhonchi Gastrointestinal-tenderness in the left lower abdomen++, + bowel sound Musculoskeletal-no acute joint swelling or tenderness or redness Lower extremity- no leg edema Neurological- cranial nerves intact, no acute dysarthria or dysphagia Psychiatry- denies depression or SI or HI Skin- no acute rash or purpura laboratory and microbiology Laboratory Tests 02/07/25 04:18 Test 02/07/25 04:18 Range/Units Serum Glucose 155 H 74-106 mg/dL Problems(with codes): (1) Diarrhea (2) Abnormal finding on GI tract imaging (3) Ulcerative colitis Prognosis Assessment plan Patient has a acute flare-up of severe inflammatory bowel disease Continue IV Solu-Medrol 40 mg q.8 hours Continue mesalamine 800 mg p.o. three times a day Start clear liquid diet advance to full liquid if tolerated Continue supportive care ; resume p.o. medications and Rowasa enemas Patient was we will be managed medically at this time and there was no immediate indication for any surgery Patient will follow up in my office in 1-2 weeks for discussion starting biological agents I will be out of town for the weekend, if there is any other further acute intervention required please contact GI physician on-call Dietary Evaluation Review Comments: 1. Advance to diet when medically feasible: dairy-intolerance, but may have [place] yogurt, almond milk, herbal tea. 2. Ensure HP 240ml PO TID 3. accommondate his likes and dislike and monito PO intake to meet 100% of his needs Expected Outcomes/Goals: improved food tolerance, Gradual wt gain, Plan discussed with: Patient, Other (Dr. Gomes) MARLENE MEHTA MD Feb 07, 2025 13:33
--- NOTE | 2025-02-07 14:31 | DVHPNRES ---
Progress Note Date Seen: Feb 07, 2025 Resident Creating Document: TERRENCE PIERCE RESIDENT Medical Necessity Reason Pt with a Central, PICC or Fol: No Subjective Review of Systems Patient is 61 years old male with a past medical history of ulcerative colitis, diverticulitis, ONEAL, prostate carcinoma, status post prostatectomy in 2009 came with a complaint of abdominal pain. As per patient he has been having worsening abdominal pain, for past 5-6 weeks in the left lower quadrant, crampy, continuous, some relief with the pain medication which is getting worse over last 2 weeks, 03/16. Patient reported diarrhea almost 10-20 times a day, with the occasional blood with the stool. Patient also reported nausea, history of not regular diet eating due to fear of having nausea or vomiting if he eats. Mostly eating liquid diet or yogurt. Patient reported losing almost 20 lb over 1 month. Patient recently completed Medrol Dosepak and ciprofloxacin on Wednesday from Dr. Obregon outpatient clinic. Patient had colonoscopy done on 07/28/2024 which revealed residual sigmoid inflammation, sigmoid polyp 1-1.5 cm. Initial lab workup revealed WBC 4.1, hemoglobin 11.4, RDW 15.6, ESR 72, CRP 13.9, lipase 32, serum iron 9, TIBC 182, saturation 4.9, ferritin 107.6. UDS positive for cannabinoids. CT abdomen and pelvis revealed- Thickening and pericolonic inflammatory change involving the sigmoid and distal descending colon. Scattered diverticuli are noted. Findings most likely reflect acute colitis/diverticulitis. Recommend close follow-up to resolution to exclude any underlying neoplasm. PMH- ulcerative colitis, diverticulitis, idea, prostate carcinoma, status post prostatectomy in 2009 PSH- Status post prostatectomy, rotator cuff surgery, hand surgery the stiffness, status post left hip arthroplasty Allergy- NKDA Personal History/ Social History-quit smoking 20 years before, occasional alcoholic, use cannabinoids. Patient was seen today at the bedside. Cardiovascular- deny acute chest pain or shortness of breath or cough or palpitation Respiratory denies cough or short of breath or wheezing Musculoskeletal-denies acute joint swelling or tenderness or redness Neurological- denies acute dysarthria, dysphagia, change in vision Psychiatry- denies depression or SI or HI Skin- denies acute rash or purpura Patient was seen today at bedside, labs and chart reviewed. CT abdominal pelvis revealed- Severe rectosigmoid colon wall thickening, mucosal hyperemia which can be seen with colitis, inflammatory bowel disease. There are also underlying colonic diverticulum which could represent synchronous diverticulitis of the rectosigmoid colon. Reported abdominal pain is improving. Patient is seen by Gastroenterology. Gastroenterology recommended to start clear liquid diet advanced to full liquid diet if tolerated. Gastroenterology recommended to p.o. medication and Rowasa enema. Objective vital signs Vital Sign Date Time Temp Pulse Resp B/P (MAP) Pulse Ox O2 Delivery O2 Flow Rate FiO2 02/07/25 12:30 97.9 61 17 108/64 (79) 98 97.9 02/06/25 20:00 Room Air* 0 21 Total Intake and Output 02/06/25 02/06/25 02/07/25 15:00 23:00 07:00 Intake Total 20 ml 500 ml Balance 20 ml 500 ml medications Current Medications Medications Dose Ordered Sig/Aramis Route Start Time Stop Time Status Last Admin Dose Admin Acetaminophen 325 mg Q4HP PRN PO 01/29/25 20:45 Acetaminophen/ Hydrocodone Bitart 1 tab Q4HP PRN PO 01/29/25 20:45 02/05/25 22:11 1 TAB Ondansetron HCl 4 mg Q4HP PRN IV 01/29/25 20:45 01/31/25 23:00 4 MG Morphine Sulfate 2 mg Q4HPRN PRN IV 01/29/25 20:45 02/07/25 05:12 2 MG Nitroglycerin 0.4 mg Q5MINP PRN SL 01/29/25 20:45 Fluticasone Propionate 1 mcg DAILY EACHNOSTRI 01/30/25 10:00 Montelukast Sodium 10 mg DAILY PO 01/30/25 10:00 02/06/25 10:00 10 MG Mesalamine 800 mg TID PO 01/30/25 14:00 02/07/25 13:39 800 MG Enoxaparin Sodium 40 mg DAILY SC 01/31/25 10:00 02/07/25 09:27 40 MG Pantoprazole Sodium 40 mg DAILY IV 01/31/25 10:00 02/07/25 09:21 40 MG Loperamide HCl 2 mg PRN PRN PO 01/31/25 13:15 02/05/25 05:47 2 MG Saccharomyces Boulardii 250 mg BID PO 02/01/25 22:00 02/06/25 10:18 250 MG Cholestyramine Resin 4 gm BID PO 02/02/25 22:00 02/03/25 09:37 4 GM Dicyclomine HCl 20 mg BID PO 02/03/25 22:00 02/06/25 10:00 20 MG Patient Own Medication 10 mg EOD PO 02/03/25 11:30 02/05/25 10:00 10 MG Azathioprine 50 mg DAILY PO 02/04/25 10:15 02/06/25 10:01 50 MG Mesalamine 4 gm HS CO 02/04/25 22:00 02/04/25 22:49 4 GM Metronidazole 100 ml @ 100 mls/hr Q8HR IV 02/06/25 22:00 02/07/25 13:39 100 MLS/HR Methylprednisolone Sodium Succinate 40 mg Q8HR IV 02/06/25 22:00 02/07/25 13:39 40 MG Amino Acids 0 ml @ 0 mls/hr PER PHARMACY IV 02/06/25 15:15 Diagnostic Test (Pha) 1 strip Q6HR 02/07/25 00:00 02/07/25 11:23 1 STRIP Insulin Human Regular FOLLOW SLIDING SCALE Q6HR SC 02/07/25 00:00 02/07/25 05:23 2 UNITS Dextrose 50 ml UD IV 02/07/25 00:00 Amino Acids/ Electrolytes/ Dextrose 1,000 ml @ 41 mls/hr DAILY@2200 IV 02/06/25 22:00 02/06/25 19:43 41 MLS/HR Examination General examination- awake, alert, oriented HEENT- PEERLA, no acute nasal discharge Cardiovascular- S1-S2 audible, rate and rhythm regular, no murmur Respiratory- CTAB, no wheeze or rhonchi Gastrointestinal-tenderness in the left lower abdomen++, + bowel sound Musculoskeletal-no acute joint swelling or tenderness or redness Lower extremity- no leg edema Neurological- cranial nerves intact, no acute dysarthria or dysphagia Psychiatry- denies depression or SI or HI Skin- no acute rash or purpura laboratory and microbiology Laboratory Tests 02/07/25 04:18 Test 02/07/25 04:18 Range/Units Serum Glucose 155 H 74-106 mg/dL Microbiology Date/Time Source Procedure Growth Status 01/31/25 14:26 Stool Stool Culture - Final Complete 01/31/25 14:26 Stool Shiga Toxin I & II - Final Complete 01/30/25 08:53 Blood Blood Culture - Final NO GROWTH AFTER 5 DAYS OF INCUBATION. Complete Problem List/Assessment/Plan Problem List/Assessment/Plan Assessment and plan # acute on chronic abdominal pain # acute bloody diarrhea # rectal bleeding # suspected acute on chronic ulcerative colitis/diverticulitis # rule out Clostridium difficile colitis # history of 1+ internal hemorrhoid -colonoscopy done on 02/06/2025-severe colitis up to and beyond the extent of the examination to about 30 cm above the anal verge with hyperemia erythema mucopus deep aphthous like ulcerations and pseudopolyps -- Colonoscopy done on 07/28/2024 and showed Patient had some residual sigmoid inflammation and sigmoiditis with some hyperemia erythema superficial mucopus and there were multiple pseudopolyps in this area from which biopsies were obtained - biopsy results showed no dysplasia or malignancy -on 02/01/2025 discontinued Zosyn, -Clostridium difficile toxin negative. --stool culture enteric amparo -Gastroenterology recommendation reviewed and appreciated - on 02/07/2025- CT abdominal pelvis revealed- Severe rectosigmoid colon wall thickening, mucosal hyperemia which can be seen with colitis, inflammatory bowel disease. - Questran to 4 g packet p.o. three times a day -Imodium as needed diarrhea -methylprednisolone as prescribed -Mesalamine 800 mg p.o. three times a day -Resume Imuran 50 mg p.o. daily -Continue home medication of Xeljanz -GI recommended-Keep NPO except for ice chips -IV Solu-Medrol 40 mg q.8 hours -IV Flagyl 500 mg q.8 hours plan -Check labs including IBD panel -continue Rawasa enema as prescribed -as per Dr. Obregon discharge the patient in the weekend if clinically improving. Patient was we will be managed medically at this time and there was no immediate indication for any surgery # prostatic carcinoma, status post prostatectomy in 2009 -no acute sign or symptom of retention of urine -monitoring clinically # iron-deficiency anemia -iron supplement as prescribed # substance abuse cannabinoids -patient is counseled about the effect of substance abuse on health Goals of care, Code status ; full code, discussed with >15 minutes PUD prophylaxis: Pantoprazole DVT prophylaxis: Lovenox Plan discussed with Dr. Bernal , nursing staff, Total time spent on patient evaluation, chart review, assessment and plan, discussion discussion >35 minutes Plan discussed with: Patient, Other (RN) Dietary Evaluation Review Comments: 1. Advance to diet when medically feasible: dairy-intolerance, but may have Japanese yogurt, almond milk, herbal tea. 2. Ensure HP 240ml PO TID 3. accommondate his likes and dislike and monito PO intake to meet 100% of his needs Expected Outcomes/Goals: improved food tolerance, Gradual wt gain, Date of Service: Feb 07, 2025 Billing Provider: RAYMOND CERNA MD Common Visit Codes: [id number] INP/OBS CARE(HIGH) TERRENCE PIERCE RESIDENT Feb 07, 2025 14:31 GIOVANNI BENNETT RESIDENT Feb 07, 2025 16:12 RAYMOND CERNA MD Feb 12, 2025 00:38
[2025-02-08] VITALS (7 sets, daily range): BP systolic 110–132; BP diastolic 59–74; PULSE 43–69; RESP 16; TEMP 97.5–98.2; O2SAT 97–99
[2025-02-08 06:41] LABS: Hematocrit 29.7 % (41.0-53.0); Hemoglobin 9.9 g/dL (13.5-17.5); Mean Corpuscular Hemoglobin 27.0 pg (28.0-32.0); Mean Corpuscular Volume 80.9 fL (80.0-100.0); Nucleated Red Blood Cells % 0.1 %
[2025-02-08 07:03] LABS: Alkaline Phosphatase 49 U/L (46-116); Anion Gap 7 (5-15); BUN/Creatinine Ratio 16.2 (10.0-20.0); Blood Urea Nitrogen 11 mg/dL (9-23); Carbon Dioxide 25 mmol/L (20-31); Chloride 103 mmol/L (98-107); Magnesium 2.1 mg/dL (1.6-2.6); Potassium 4.1 mmol/L (3.5-5.1)
[2025-02-08 07:04] LABS: Alanine Aminotransferase < 9 U/L (7-40); Albumin 3.0 g/dL (3.2-4.8); Calcium 8.0 mg/dL (8.7-10.4); Glucose 141 mg/dL (74-106); Sodium 135 mmol/L (136-145); Total Protein 5.1 g/dL (5.7-8.2)
[2025-02-08 07:08] LABS: Bilirubin, Total 0.2 mg/dL (0.2-1.0)
--- NOTE | 2025-02-08 09:04 | DVHPNRES ---
Progress Note Date Seen: Feb 08, 2025 Resident Creating Document: TERRENCE PIERCE RESIDENT Medical Necessity Reason Pt with a Central, PICC or Fol: No Subjective Review of Systems Patient is 61 years old male with a past medical history of ulcerative colitis, diverticulitis, ONEAL, prostate carcinoma, status post prostatectomy in 2009 came with a complaint of abdominal pain. As per patient he has been having worsening abdominal pain, for past 5-6 weeks in the left lower quadrant, crampy, continuous, some relief with the pain medication which is getting worse over last 2 weeks, 03/16. Patient reported diarrhea almost 10-20 times a day, with the occasional blood with the stool. Patient also reported nausea, history of not regular diet eating due to fear of having nausea or vomiting if he eats. Mostly eating liquid diet or yogurt. Patient reported losing almost 20 lb over 1 month. Patient recently completed Medrol Dosepak and ciprofloxacin on Wednesday from Dr. Obregon outpatient clinic. Patient had colonoscopy done on 07/28/2024 which revealed residual sigmoid inflammation, sigmoid polyp 1-1.5 cm. Initial lab workup revealed WBC 4.1, hemoglobin 11.4, RDW 15.6, ESR 72, CRP 13.9, lipase 32, serum iron 9, TIBC 182, saturation 4.9, ferritin 107.6. UDS positive for cannabinoids. CT abdomen and pelvis revealed- Thickening and pericolonic inflammatory change involving the sigmoid and distal descending colon. Scattered diverticuli are noted. Findings most likely reflect acute colitis/diverticulitis. Recommend close follow-up to resolution to exclude any underlying neoplasm. PMH- ulcerative colitis, diverticulitis, idea, prostate carcinoma, status post prostatectomy in 2009 PSH- Status post prostatectomy, rotator cuff surgery, hand surgery the stiffness, status post left hip arthroplasty Allergy- NKDA Personal History/ Social History-quit smoking 20 years before, occasional alcoholic, use cannabinoids. Patient was seen today at the bedside. Cardiovascular- deny acute chest pain or shortness of breath or cough or palpitation Respiratory denies cough or short of breath or wheezing Musculoskeletal-denies acute joint swelling or tenderness or redness Neurological- denies acute dysarthria, dysphagia, change in vision Psychiatry- denies depression or SI or HI Skin- denies acute rash or purpura Patient was seen today at bedside, labs and chart reviewed. Patient reported feeling better today. Only 2 bowel movements over 24 hours. Pain is getting better. Patient denies on liquid diet, tolerating well. Plan is to advance diet as tolerated. Objective vital signs Vital Sign Date Time Temp Pulse Resp B/P (MAP) Pulse Ox O2 Delivery O2 Flow Rate FiO2 02/08/25 08:33 97.5 44 16 130/72 (91) 97 97.5 02/08/25 07:31 Room Air* 0 21 Total Intake and Output 02/07/25 02/07/25 02/08/25 15:00 23:00 07:00 Intake Total 100 ml 1040 ml 240 ml Balance 100 ml 1040 ml 240 ml medications Current Medications Medications Dose Ordered Sig/Aramis Route Start Time Stop Time Status Last Admin Dose Admin Acetaminophen 325 mg Q4HP PRN PO 01/29/25 20:45 Ondansetron HCl 4 mg Q4HP PRN IV 01/29/25 20:45 01/31/25 23:00 4 MG Nitroglycerin 0.4 mg Q5MINP PRN SL 01/29/25 20:45 Fluticasone Propionate 1 mcg DAILY EACHNOSTRI 01/30/25 10:00 Montelukast Sodium 10 mg DAILY PO 01/30/25 10:00 02/06/25 10:00 10 MG Mesalamine 800 mg TID PO 01/30/25 14:00 02/08/25 05:37 800 MG Enoxaparin Sodium 40 mg DAILY SC 01/31/25 10:00 02/07/25 09:27 40 MG Pantoprazole Sodium 40 mg DAILY IV 01/31/25 10:00 02/07/25 09:21 40 MG Loperamide HCl 2 mg PRN PRN PO 01/31/25 13:15 02/05/25 05:47 2 MG Saccharomyces Boulardii 250 mg BID PO 02/01/25 22:00 02/07/25 22:00 250 MG Cholestyramine Resin 4 gm BID PO 02/02/25 22:00 02/07/25 22:41 4 GM Dicyclomine HCl 20 mg BID PO 02/03/25 22:00 02/07/25 22:00 20 MG Patient Own Medication 10 mg EOD PO 02/03/25 11:30 02/05/25 10:00 10 MG Azathioprine 50 mg DAILY PO 02/04/25 10:15 02/06/25 10:01 50 MG Mesalamine 4 gm HS ID 02/04/25 22:00 02/04/25 22:49 4 GM Metronidazole 100 ml @ 100 mls/hr Q8HR IV 02/06/25 22:00 02/08/25 05:36 100 MLS/HR Methylprednisolone Sodium Succinate 40 mg Q8HR IV 02/06/25 22:00 02/08/25 05:36 40 MG Amino Acids 0 ml @ 0 mls/hr PER PHARMACY IV 02/06/25 15:15 Diagnostic Test (Pha) 1 strip Q6HR 02/07/25 00:00 02/08/25 05:58 1 STRIP Insulin Human Regular FOLLOW SLIDING SCALE Q6HR SC 02/07/25 00:00 02/08/25 05:58 2 UNITS Dextrose 50 ml UD IV 02/07/25 00:00 Amino Acids/ Electrolytes/ Dextrose 1,000 ml @ 41 mls/hr DAILY@2200 IV 02/06/25 22:00 02/07/25 22:00 41 MLS/HR Examination General examination- awake, alert, oriented HEENT- PEERLA, no acute nasal discharge Cardiovascular- S1-S2 audible, rate and rhythm regular, no murmur Respiratory- CTAB, no wheeze or rhonchi Gastrointestinal-tenderness in the left lower abdomen++, + bowel sound Musculoskeletal-no acute joint swelling or tenderness or redness Lower extremity- no leg edema Neurological- cranial nerves intact, no acute dysarthria or dysphagia Psychiatry- denies depression or SI or HI Skin- no acute rash or purpura laboratory and microbiology Laboratory Tests 02/08/25 06:24 Test 02/08/25 06:24 Range/Units Serum Glucose 141 H 74-106 mg/dL Microbiology Date/Time Source Procedure Growth Status 01/31/25 14:26 Stool Stool Culture - Final Complete 01/31/25 14:26 Stool Shiga Toxin I & II - Final Complete 01/30/25 08:53 Blood Blood Culture - Final NO GROWTH AFTER 5 DAYS OF INCUBATION. Complete Problem List/Assessment/Plan Problem List/Assessment/Plan Assessment and plan # acute on chronic abdominal pain # acute bloody diarrhea # rectal bleeding # suspected acute on chronic ulcerative colitis/diverticulitis # rule out Clostridium difficile colitis # history of 1+ internal hemorrhoid -colonoscopy done on 02/06/2025-severe colitis up to and beyond the extent of the examination to about 30 cm above the anal verge with hyperemia erythema mucopus deep aphthous like ulcerations and pseudopolyps -- Colonoscopy done on 07/28/2024 and showed Patient had some residual sigmoid inflammation and sigmoiditis with some hyperemia erythema superficial mucopus and there were multiple pseudopolyps in this area from which biopsies were obtained - biopsy results showed no dysplasia or malignancy -on 02/01/2025 discontinued Zosyn, -Clostridium difficile toxin negative. --stool culture enteric amparo -Gastroenterology recommendation reviewed and appreciated - on 02/07/2025- CT abdominal pelvis revealed- Severe rectosigmoid colon wall thickening, mucosal hyperemia which can be seen with colitis, inflammatory bowel disease. - Questran to 4 g packet p.o. three times a day -Imodium as needed diarrhea -methylprednisolone as prescribed -Mesalamine 800 mg p.o. three times a day -Resume Imuran 50 mg p.o. daily -Continue home medication of Xeljanz -GI recommended-Keep NPO except for ice chips -IV Solu-Medrol 40 mg q.8 hours -IV Flagyl 500 mg q.8 hours plan -Check labs including IBD panel -continue Rawasa enema as prescribed -advance diet as tolerated as per gastroenterology recommendation # prostatic carcinoma, status post prostatectomy in 2009 -no acute sign or symptom of retention of urine -monitoring clinically # iron-deficiency anemia -iron supplement as prescribed # substance abuse cannabinoids -patient is counseled about the effect of substance abuse on health Goals of care, Code status ; full code, discussed with >15 minutes PUD prophylaxis: Pantoprazole DVT prophylaxis: Lovenox Plan discussed with Dr. Bernal , nursing staff, Total time spent on patient evaluation, chart review, assessment and plan, discussion discussion >35 minutes Plan discussed with: Patient, Other (RN) Dietary Evaluation Review Comments: 1. Advance to diet when medically feasible: dairy-intolerance, but may have [place] yogurt, almond milk, herbal tea. 2. Ensure HP 240ml PO TID 3. accommondate his likes and dislike and monito PO intake to meet 100% of his needs Expected Outcomes/Goals: improved food tolerance, Gradual wt gain, Date of Service: Feb 08, 2025 Billing Provider: RAYMOND CERNA MD Common Visit Codes: [id number] INP/OBS CARE(HIGH) TERRENCE PIERCE RESIDENT Feb 08, 2025 09:04 GIOVANNI BENNETT Feb 09, 2025 14:15 RAYMOND CERNA MD Feb 12, 2025 00:58
--- NOTE | 2025-02-08 10:22 | DVHPN2 ---
Progress Note Date Seen: Feb 08, 2025 Resident Creating Document: JAZMIN MCPHERSON RESIDENT Medical Necessity Reason Pt with a Central, PICC or Fol: No Subjective Review of Systems Patient seen and examined at bedside Two soft bowel movements overnight, denies any blood in stool No nausea, no vomiting Tolerating full liquid diet Notes significant improvement in abdominal pain Objective vital signs Vital Sign Date Time Temp Pulse Resp B/P (MAP) Pulse Ox O2 Delivery O2 Flow Rate FiO2 02/08/25 08:33 97.5 44 16 130/72 (91) 97 97.5 02/08/25 07:31 Room Air* 0 21 Total Intake and Output 02/07/25 02/07/25 02/08/25 15:00 23:00 07:00 Intake Total 100 ml 1040 ml 240 ml Balance 100 ml 1040 ml 240 ml medications Current Medications Medications Dose Ordered Sig/Aramis Route Start Time Stop Time Status Last Admin Dose Admin Acetaminophen 325 mg Q4HP PRN PO 01/29/25 20:45 Ondansetron HCl 4 mg Q4HP PRN IV 01/29/25 20:45 01/31/25 23:00 4 MG Nitroglycerin 0.4 mg Q5MINP PRN SL 01/29/25 20:45 Fluticasone Propionate 1 mcg DAILY EACHNOSTRI 01/30/25 10:00 Montelukast Sodium 10 mg DAILY PO 01/30/25 10:00 02/06/25 10:00 10 MG Mesalamine 800 mg TID PO 01/30/25 14:00 02/08/25 05:37 800 MG Enoxaparin Sodium 40 mg DAILY SC 01/31/25 10:00 02/08/25 09:26 40 MG Pantoprazole Sodium 40 mg DAILY IV 01/31/25 10:00 02/08/25 09:25 40 MG Loperamide HCl 2 mg PRN PRN PO 01/31/25 13:15 02/05/25 05:47 2 MG Saccharomyces Boulardii 250 mg BID PO 02/01/25 22:00 02/08/25 09:45 250 MG Cholestyramine Resin 4 gm BID PO 02/02/25 22:00 02/08/25 09:28 4 GM Dicyclomine HCl 20 mg BID PO 02/03/25 22:00 02/08/25 09:45 20 MG Patient Own Medication 10 mg EOD PO 02/03/25 11:30 02/05/25 10:00 10 MG Azathioprine 50 mg DAILY PO 02/04/25 10:15 02/08/25 09:45 50 MG Mesalamine 4 gm HS [place] 02/04/25 22:00 02/04/25 22:49 4 GM Metronidazole 100 ml @ 100 mls/hr Q8HR IV 02/06/25 22:00 02/08/25 05:36 100 MLS/HR Methylprednisolone Sodium Succinate 40 mg Q8HR IV 02/06/25 22:00 02/08/25 05:36 40 MG Amino Acids 0 ml @ 0 mls/hr PER PHARMACY IV 02/06/25 15:15 Diagnostic Test (Pha) 1 strip Q6HR 02/07/25 00:00 02/08/25 05:58 1 STRIP Insulin Human Regular FOLLOW SLIDING SCALE Q6HR SC 02/07/25 00:00 02/08/25 05:58 2 UNITS Dextrose 50 ml UD IV 02/07/25 00:00 Amino Acids/ Electrolytes/ Dextrose 1,000 ml @ 41 mls/hr DAILY@2200 IV 02/06/25 22:00 02/07/25 22:00 41 MLS/HR Examination General examination- awake, alert, oriented Cardiovascular- normal rate and rhythm regular Respiratory- equal bilateral air entry Gastrointestinal: mild tenderness to palpation left lower quadrant, positive bowel sounds. Musculoskeletal-no acute joint swelling or tenderness or redness Lower extremity- no leg edema Skin- no acute rash or purpura laboratory and microbiology Laboratory Tests 02/08/25 06:24 Test 02/08/25 06:24 Range/Units Serum Glucose 141 H 74-106 mg/dL Microbiology Date/Time Source Procedure Growth Status 01/31/25 14:26 Stool Stool Culture - Final Complete 01/31/25 14:26 Stool Shiga Toxin I & II - Final Complete 01/30/25 08:53 Blood Blood Culture - Final NO GROWTH AFTER 5 DAYS OF INCUBATION. Complete Labs and/or images reviewed: Labs reviewed by me, Image(s) reviewed by me Problem List/Assessment/Plan Problem List/Assessment/Plan Acute colitis Ulcerative colitis flare Diarrhea, improving Plan: EGD 02/07/25: Patient had severe colitis up to and beyond the extent of the examination to about 30 cm above the anal verge with hyperemia erythema mucopus deep aphthous like ulcerations and pseudopolyps. Limited study due to poor prep with large amount of liquid brown stool in the colon IV solumedrol q8hr for another 24-48 hours advanced to mechanical soft diet continue mesalamine 800 tid On discharge, patient should be discharged home with prednisone 600 mg and to follow up with GI in the outpatient within 1 week for taper and initiation of biological agents Patient to continue being managed medically at this time, no immediate indication for any surgery. Thank you so much for the opportunity to consult on your patient. GI team will follow the patient. In case of any questions or concerns please feel free to reach out. Plan discussed with Dr. Obregon Plan discussed with: Patient, Other (RN) Dietary Evaluation Review Comments: 1. Advance to diet when medically feasible: dairy-intolerance, but may have [place] yogurt, almond milk, herbal tea. 2. Ensure HP 240ml PO TID 3. accommondate his likes and dislike and monito PO intake to meet 100% of his needs Expected Outcomes/Goals: improved food tolerance, Gradual wt gain, JAZMIN MCPHERSON RESIDENT Feb 08, 2025 10:22
[2025-02-09 01:00] VITALS: BP 109/53; PULSE 50; RESP 16; TEMP 98.1; O2SAT 96
[2025-02-09 05:00] VITALS: BP 113/62; PULSE 52; RESP 16; TEMP 97.7; O2SAT 97
[2025-02-09 05:54] LABS: Hematocrit 29.2 % (41.0-53.0); Hemoglobin 10.0 g/dL (13.5-17.5); Mean Corpuscular Hemoglobin 27.4 pg (28.0-32.0); Mean Corpuscular Volume 80.3 fL (80.0-100.0); Nucleated Red Blood Cells % 0.1 %
[2025-02-09 06:04] LABS: Chloride 106 mmol/L (98-107); Potassium 4.3 mmol/L (3.5-5.1); Sodium 138 mmol/L (136-145)
[2025-02-09 06:05] LABS: Anion Gap 7 (5-15); Carbon Dioxide 25 mmol/L (20-31)
[2025-02-09 06:10] LABS: BUN/Creatinine Ratio 23.3 (10.0-20.0); Blood Urea Nitrogen 17 mg/dL (9-23)
[2025-02-09 06:21] LABS: Calcium 8.0 mg/dL (8.7-10.4); Glucose 120 mg/dL (74-106)
[2025-02-09 08:00] VITALS: PULSE 45; RESP 18; O2SAT 98
[2025-02-09 08:33] VITALS: BP 117/66; PULSE 45; RESP 18; TEMP 98.2; O2SAT 98
--- NOTE | 2025-02-09 09:48 | DVHPN2 ---
Progress Note Date Seen: Feb 09, 2025 Resident Creating Document: JAZMIN MCPHERSON RESIDENT Medical Necessity Reason Pt with a Central, PICC or Fol: No Subjective Review of Systems Patient seen and examined at bedside Reports significant improvement in symptoms including abdominal pain Notes having 1 bowel movement which was soft, slowly forming Objective vital signs Vital Sign Date Time Temp Pulse Resp B/P (MAP) Pulse Ox O2 Delivery O2 Flow Rate FiO2 02/09/25 08:33 98.2 45 18 117/66 (83) 98 98.2 02/08/25 20:00 Room Air* 0 21 Total Intake and Output 02/08/25 02/08/25 02/09/25 15:00 23:00 07:00 Intake Total 100 ml 1050 ml 980 ml Balance 100 ml 1050 ml 980 ml medications Current Medications Medications Dose Ordered Sig/Aramis Route Start Time Stop Time Status Last Admin Dose Admin Acetaminophen 325 mg Q4HP PRN PO 01/29/25 20:45 Ondansetron HCl 4 mg Q4HP PRN IV 01/29/25 20:45 01/31/25 23:00 4 MG Nitroglycerin 0.4 mg Q5MINP PRN SL 01/29/25 20:45 Fluticasone Propionate 1 mcg DAILY EACHNOSTRI 01/30/25 10:00 Montelukast Sodium 10 mg DAILY PO 01/30/25 10:00 02/06/25 10:00 10 MG Mesalamine 800 mg TID PO 01/30/25 14:00 02/09/25 05:28 800 MG Enoxaparin Sodium 40 mg DAILY SC 01/31/25 10:00 02/09/25 09:21 40 MG Pantoprazole Sodium 40 mg DAILY IV 01/31/25 10:00 02/09/25 09:19 40 MG Loperamide HCl 2 mg PRN PRN PO 01/31/25 13:15 02/05/25 05:47 2 MG Saccharomyces Boulardii 250 mg BID PO 02/01/25 22:00 02/09/25 09:19 250 MG Cholestyramine Resin 4 gm BID PO 02/02/25 22:00 02/09/25 09:20 4 GM Dicyclomine HCl 20 mg BID PO 02/03/25 22:00 02/09/25 09:19 20 MG Patient Own Medication 10 mg EOD PO 02/03/25 11:30 02/05/25 10:00 10 MG Azathioprine 50 mg DAILY PO 02/04/25 10:15 02/09/25 09:20 50 MG Mesalamine 4 gm HS AR 02/04/25 22:00 02/04/25 22:49 4 GM Metronidazole 100 ml @ 100 mls/hr Q8HR IV 02/06/25 22:00 02/09/25 05:28 100 MLS/HR Methylprednisolone Sodium Succinate 40 mg Q8HR IV 02/06/25 22:00 02/09/25 05:28 40 MG Diagnostic Test (Pha) 1 strip Q6HR 02/07/25 00:00 02/09/25 05:43 1 STRIP Insulin Human Regular FOLLOW SLIDING SCALE Q6HR SC 02/07/25 00:00 02/08/25 13:00 4 UNITS Dextrose 50 ml UD IV 02/07/25 00:00 Examination General examination- awake, alert, oriented Cardiovascular- normal rate and rhythm regular Respiratory- equal bilateral air entry Gastrointestinal: mild tenderness to palpation left lower quadrant, positive bowel sounds. Musculoskeletal-no acute joint swelling or tenderness or redness Lower extremity- no leg edema Skin- no acute rash or purpura laboratory and microbiology Laboratory Tests 02/09/25 04:23 Test 02/09/25 04:23 Range/Units Serum Glucose 120 H 74-106 mg/dL Microbiology Date/Time Source Procedure Growth Status 01/31/25 14:26 Stool Stool Culture - Final Complete 01/31/25 14:26 Stool Shiga Toxin I & II - Final Complete 01/30/25 08:53 Blood Blood Culture - Final NO GROWTH AFTER 5 DAYS OF INCUBATION. Complete Labs and/or images reviewed: Labs reviewed by me, Image(s) reviewed by me Problem List/Assessment/Plan Problem List/Assessment/Plan Acute colitis Ulcerative colitis flare, improving Diarrhea, improving Plan: EGD 02/07/25: Patient had severe colitis up to and beyond the extent of the examination to about 30 cm above the anal verge with hyperemia erythema mucopus deep aphthous like ulcerations and pseudopolyps. Limited study due to poor prep with large amount of liquid brown stool in the colon IV solumedrol q8hr for another 24-48 hours advanced to mechanical soft diet continue mesalamine 800 tid On discharge, patient should be discharged home with prednisone 600 mg and to follow up with GI in the outpatient within 1 week for taper and initiation of biological agents Tylenol and Bentyl as needed for pain Patient to continue being managed medically at this time, no immediate indication for any surgery. Thank you so much for the opportunity to consult on your patient. GI team will follow the patient. In case of any questions or concerns please feel free to reach out. Plan discussed with Dr. Obregon Plan discussed with: Patient, Other (RN) My Orders My Orders Orders - JAZMIN MCPHERSON RESIDENT Procedure Category Date Status Time Mechanical Soft Diet DIET 02/08/25 Transmitted Lunch Prednisone Tablet PHA 02/09/25 Verified 10:00 Dietary Evaluation Review Comments: 1. Advance to diet when medically feasible: dairy-intolerance, but may have Georgian yogurt, almond milk, herbal tea. 2. Ensure HP 240ml PO TID 3. accommondate his likes and dislike and monito PO intake to meet 100% of his needs Expected Outcomes/Goals: improved food tolerance, Gradual wt gain, JAZMIN MCPHERSON RESIDENT Feb 09, 2025 09:48
--- NOTE | 2025-02-09 10:51 | DVHDSRES ---
Discharge Summary Date of Admission Resident Creating Document: TERRENCE PIERCE RESIDENT Jan 29, 2025 at 20:34 Date of Discharge: Feb 09, 2025 Admitting Diagnosis Acute severe abdominal pain due to Acute exacerbation of ulcerative colitis and bleeding per rectum Labs/Diagnostic Data: Laboratory Results Test 02/09/25 05:42 02/09/25 04:23 02/08/25 06:24 02/07/25 04:18 POC Glucose 114 mg/dl (70-106) White Blood Count 6.6 10^3/uL (4.4-10.8) Red Blood Count 3.64 10^6/uL (4.5-5.90) Hemoglobin 10.0 g/dL (13.5-17.5) Hematocrit 29.2 % (41.0-53.0) Mean Corpuscular Volume 80.3 fL (80.0-100.0) Mean Corpuscular Hemoglobin 27.4 pg (28.0-32.0) Mean Corpuscular Hemoglobin Concent 34.2 g/dL (32.0-36.0) Red Cell Distribution Width 15.9 % (11.8-14.3) Platelet Count 370 10^3/uL (140-450) Mean Platelet Volume 7.3 fL (6.9-10.8) Neutrophils (%) (Auto) 89.9 % (37.0-80.0) Lymphocytes (%) (Auto) 2.3 % (10.0-50.0) Monocytes (%) (Auto) 7.8 % (0.0-12.0) Eosinophils (%) (Auto) 0.0 % (0.0-7.0) Basophils (%) (Auto) 0.0 % (0.0-2.0) Neutrophils # (Auto) 5.9 10 ^3/uL (1.6-8.6) Lymphocytes # (Auto) 0.2 10 ^3/uL (0.4-5.4) Monocytes # (Auto) 0.5 10 ^3/uL (0-1.3) Eosinophils # (Auto) 0 10 ^3/uL (0-0.8) Basophils # (Auto) 0 10 ^3/uL (0-0.2) Nucleated Red Blood Cells 0.1 % Sodium Level 138 mmol/L (136-145) Potassium Level 4.3 mmol/L (3.5-5.1) Chloride Level 106 mmol/L (98-107) Carbon Dioxide Level 25 mmol/L (20-31) Anion Gap 7 (5-15) Blood Urea Nitrogen 17 mg/dL (9-23) Creatinine 0.73 mg/dL (0.700-1.30) Glomerular Filtration Rate Calc 98 mL/min (>90) BUN/Creatinine Ratio 23.3 (10.0-20.0) Serum Glucose 120 mg/dL (74-106) Calcium Level 8.0 mg/dL (8.7-10.4) Phosphorus Level 3.3 mg/dL (2.4-5.1) Magnesium Level 2.1 mg/dL (1.6-2.6) Total Bilirubin 0.2 mg/dL (0.2-1.0) Aspartate Amino Transferase (AST) 8 U/L (13-40) Alanine Aminotransferase (ALT) < 9 U/L (7-40) Alkaline Phosphatase 49 U/L (46-116) Total Protein 5.1 g/dL (5.7-8.2) Albumin 3.0 g/dL (3.2-4.8) Estimated GFR () 120 mL/min Estimated GFR (Non- 99 mL/min Test 02/06/25 04:22 02/04/25 04:57 02/02/25 05:10 02/01/25 11:17 Differential Total Cells Counted 100.0 (100) Neutrophils % (Manual) 59 (37.0-80.0) Band Neutrophils % (Manual) 9 Lymphocytes % (Manual) 19 (10.0-50.0) Monocytes % (Manual) 12 (0-12) Eosinophils % (Manual) 1 (0-7) Basophils % (Manual) 0 (0.0-2.0) Metamyelocytes % (manual) 0 Myelocytes % (Manual) 0 Promyelocytes % (Manual) 0 Blast Cells % (Manual) 0 Reactive Lymphocytes 0 Platelet Estimate Adequate Saccharomyces cerevisiae IgG Ab <20.0 Units (0.0-24.9) Saccharomyces cerevisiae IgA Ab <20.0 Units (0.0-24.9) Microcytosis Slight C-Reactive Protein High Sensitivity 3.59 mg/dL (<1.0) Stool Occult Blood Positive (Negative) Stool Occult Blood Sample #3 (Negative) Test 01/30/25 11:15 01/30/25 03:32 01/29/25 23:33 01/29/25 22:04 Stool for White Cells Many Erythrocyte Sedimentation Rate 72 mm/hr (0-20) Hemoglobin A1c 5.5 % A1C (<5.7) Ferritin 107.6 ng/mL (22-322) B-Type Natriuretic Peptide 10.50 pg/mL (0-100) Troponin I High Sensitivity < 3 ng/L (</=54) Urine Color Kenzie (Yellow) Urine Clarity Hazy (Clear) Urine pH 6.0 (5.0-9.0) Urine Specific [place] 1.020 (1.001-1.035) Urine Protein 1+ (Negative) Urine Ketones 3+ (Negative) Urine Blood 3+ /uL (Negative) Urine Nitrite Negative (Negative) Urine Bilirubin Negative (Negative) Urine Urobilinogen Normal mg/dL (Negative) Urine Leukocyte Esterase Negative /uL (Negative) Urine RBC 28 /hpf (0 - 3) Urine Microscopic WBC 3 /HPF (0-3) Urine Squamous Epithelial Cells Few /hpf (<5) Urine Bacteria None seen /hpf (None Seen) Urine Mucus Many (None Seen) Urine Glucose Normal mg/dL (Normal) Urine Opiates Screen Pos (NEGATIVE) Urine Fentanyl Screen Neg (NEGATIVE) Urine Barbiturates Screen Neg (NEGATIVE) Urine Phencyclidine Screen Neg (NEGATIVE) Urine Amphetamines Screen Neg (NEGATIVE) Urine Benzodiazepines Screen Neg (NEGATIVE) Urine Cocaine Screen Neg (NEGATIVE) Urine Cannabinoids Screen Pos (NEGATIVE) Test 01/29/25 18:45 Prothrombin Time 11.5 sec (9.3-11.8) Prothrombin Time INR 1.09 (0.9-1.15) Activated Partial Thromboplast Time 33.8 SEC (24.5-34.5) Lactic Acid Level 0.9 mmol/L (0.4-2.0) Iron Level 9 ug/dL (65-175) Total Iron Binding Capacity 182 ug/dL (250-425) Percent Iron Saturation 4.9 % (20-55) Lipase 22 U/L (12-53) Thyroid Stimulating Hormone (TSH) 1.50 uIU/mL (0.55-4.78) Other Laboratory Tests 02/09/25 04:23 Brief Hx & Hospital Course: HPI- Patient is 61 years old male with a past medical history of ulcerative colitis, diverticulitis, ONEAL, prostate carcinoma, status post prostatectomy in 2009 came with a complaint of abdominal pain. As per patient he has been having worsening abdominal pain, for past 5-6 weeks in the left lower quadrant, crampy, continuous, some relief with the pain medication which is getting worse over last 2 weeks, 03/16. Patient reported diarrhea almost 10-20 times a day, with the occasional blood with the stool. Patient also reported nausea, history of not regular diet eating due to fear of having nausea or vomiting if he eats. Mostly eating liquid diet or yogurt. Patient reported losing almost 20 lb over 1 month. Patient recently completed Medrol Dosepak and ciprofloxacin on Wednesday from Dr. Mehta outpatient clinic. Patient had colonoscopy done on 07/28/2024 which revealed residual sigmoid inflammation, sigmoid polyp 1-1.5 cm. Initial lab workup revealed WBC 4.1, hemoglobin 11.4, RDW 15.6, ESR 72, CRP 13.9, lipase 32, serum iron 9, TIBC 182, saturation 4.9, ferritin 107.6. UDS positive for cannabinoids. CT abdomen and pelvis revealed- Thickening and pericolonic inflammatory change involving the sigmoid and distal descending colon. Scattered diverticuli are noted. Findings most likely reflect acute colitis/diverticulitis. Recommend close follow-up to resolution to exclude any underlying neoplasm. Hospital course-Patient is 61 years old male with a past medical history of ulcerative colitis, diverticulitis, ONEAL, prostate carcinoma, status post prostatectomy in 2009 came with a complaint of abdominal pain. As per patient he has been having worsening abdominal pain, for past 5-6 weeks in the left lower quadrant, crampy, continuous, some relief with the pain medication which is getting worse over last 2 weeks, 03/16. Patient reported diarrhea almost 10-20 times a day, with the occasional blood with the stool. Patient also reported nausea, history of not regular diet eating due to fear of having nausea or vomiting if he eats. Mostly eating liquid diet or yogurt. Patient reported losing almost 20 lb over 1 month. Patient recently completed Medrol Dosepak and ciprofloxacin on Wednesday from Dr. Mehta outpatient clinic. Patient had colonoscopy done on 07/28/2024 which revealed residual sigmoid inflammation, sigmoid polyp 1-1.5 cm. Initial lab workup revealed WBC 4.1, hemoglobin 11.4, RDW 15.6, ESR 72, CRP 13.9, lipase 32, serum iron 9, TIBC 182, saturation 4.9, ferritin 107.6. UDS positive for cannabinoids. CT abdomen and pelvis revealed- Thickening and pericolonic inflammatory change involving the sigmoid and distal descending colon. Scattered diverticuli are noted. Findings most likely reflect acute colitis/diverticulitis. Recommend close follow-up to resolution to exclude any underlying neoplasm. Clostridium difficile toxin was negative. Repeat CT abdomen and pelvis revealed -Severe rectosigmoid colon wall thickening, mucosal hyperemia which can be seen with colitis, inflammatory bowel disease. Colonoscopy revealedPatient had severe colitis up to and beyond the extent of the examination to about 30 cm above the anal verge with hyperemia erythema mucopus deep aphthous like ulcerations and pseudopolyps. Limited study due to poor prep with large amount of liquid brown stool in the colon. Atypical p-ANCA negative. Patient was treated conservatively, patient had IV methylprednisolone, ongoing mesalamine and azithromycin. Patient was seen by Gastroenterology, patient's symptoms improved gradually,. Patient is being discharged home with the prednisolone 60 mg p.o. daily, mesalamine 800 mg p.o. t.i.d., mesalamine enema daily, azathioprine 50 mg p.o. daily, Questran powder 4 mg p.o. b.i.d., Florastor, pantoprazole, Flagyl 500 mg p.o. today. Patient was advice to follow up with the shoe laster in 1 weeks, and also with primary care physician in 1 week. Patient was hemodynamically stable on discharge. Assessment # acute exacerbation of severe ulcerative colitis # acute on chronic abdominal pain # acute bloody diarrhea # rectal bleeding # suspected acute on chronic ulcerative colitis/diverticulitis # rule out Clostridium difficile colitis # history of 1+ internal hemorrhoid # prostatic carcinoma, status post prostatectomy in 2009 # iron-deficiency anemia # substance abuse cannabinoids # lactose intolerance Plan Prednisolone 60 mg p.o. daily prescribed Continue mesalamine for Gram rectal at night Continue mesalamine 800 mg p.o. 3 times a day Continue azathioprine 50 mg p.o. daily Metronidazole 500 mg p.o. t.i.d. for 7 days Pantoprazole 20 mg p.o. daily for 1 month Questran 4 mg p.o. b.i.d. Florastor 250 mg p.o. b.i.d. Please follow up with the primary care physician in 1 week Please follow up with shoe laster Dr. Mehta in 1 weeks Resume home medications Avoid dehydration and constipation Avoid dairy products Operations or Procedures [address] [address] Ph: [phone] DIAGNOSTIC IMAGING Diagnostic Imaging Report : [id number] Signed PATIENT: SRAVAN HERNANDEZ ACCT: [id number] UNIT: [id number] : 1955 LOC: ER ROOM / BED: / AGE / SEX: 69 / M ADM STATUS: REG ER SERVICE 25 ORDERING PHYSICIAN: JAQUAN LEONARDO DO PROCEDURE(s): ABPL - CT AB PEL WO CON-NO ORAL OR IV REASON: abd pain ORDER NUMBER(s): [id number], ACCESSION NUMBER(s): [id number] CT SCAN ABDOMEN AND PELVIS WITHOUT CONTRAST CLINICAL HISTORY: abd pain TECHNIQUE: Helical axial images are obtained from the lung bases through the pelvis without oral contrast. No intravenous contrast was administered. Coronal and sagittal reformatted images were generated from thin section reconstructions. One or more of the following radiation dose reduction techniques were used for this examination: automated exposure control, adjustment of the mA and/or kV according to patient size, use of iterative reconstruction technique. COMPARISON: 04/02/2021 FINDINGS: LOWER THORAX: Imaged lung bases are grossly clear. ABDOMEN AND PELVIS: Evaluation of visceral and vascular structures is limited due to lack of contrast administration. Stable appearing scattered cystic hypodensities mainly seen in the hepatic dome. Gallbladder is mildly distended. No sizable, radiopaque cholelithiasis or biliary ductal dilatation. The unenhanced pancreas, spleen and adrenals appear grossly unremarkable. No hydroureteronephrosis or sizable, obstructing urinary tract calculi identified. Aortoiliac atherosclerotic calcifications. No evidence of abdominal aortic aneurysm. No evidence of small-bowel obstruction. Thickening of the sigmoid and distal descending colon with pericolonic fat stranding. A few scattered diverticuli are noted. Streak artifact from the left hip arthroplasty hardware limits evaluation of the rectosigmoid region. As visualized, no sizable pericolonic fluid collections identified. No definite evidence of pneumoperitoneum. Appendix is again noted to be prominent in caliber, measuring approximately 1.2 cm in diameter. There is fat deposition within the appendiceal wall which may be sequelae of chronic inflammatory disease. No sizable appendicolith or periappendiceal fluid collections. No definite bladder calculus. Multilevel degenerative changes of the thoracic and lumbar spine. IMPRESSION: Thickening and pericolonic inflammatory change involving the sigmoid and distal descending colon. Scattered diverticuli are noted. Findings most likely reflect acute colitis/diverticulitis. Recommend close follow-up to resolution to exclude any underlying neoplasm. Other chronic-appearing findings as above. ATED BY: JOSE MARIA CHILEL MD DICTATED DATE/TIME: 01/29/251934 SIGNED BY: JOSE MARIA CHILEL MD SIGNED DATE/TIME: 01/29/251934 CC: [place] [id number] Ph: [phone] DIAGNOSTIC IMAGING Diagnostic Imaging Report : [id number] Signed PATIENT: SRAVAN HERNANDEZ ACCT: [id number] UNIT: [id number] : 1955 LOC: CENTRAL ROOM / BED: [facility] / A AGE / SEX: 69 / M ADM STATUS: ADM IN SERVICE 07 ORDERING PHYSICIAN: MARLENE MEHTA MD PROCEDURE(s): ABPLC - CT ABD PELVIS W CON-ORAL & IV REASON: SEVERE COLITIS; r//o free air ; fistula ;extent of inflammat ORDER NUMBER(s): [id number], ACCESSION NUMBER(s): [id number] Indication: SEVERE COLITIS; r//o free air ; fistula ;extent of inflammat Technique: CT axial images of the abdomen and pelvis are obtained with intravenous contrast. Coronal and sagittal reformats were obtained. Radiation Dose Information: CTDI volume is 10.73 mGy. Dose-length product is 594.98 mGy*cm Comparison: 01/29/2025 FINDINGS: Lung bases demonstrate no pleural effusion. Adrenal glands, spleen, pancreas unremarkable. Hepatic cysts measuring up to 1.[address] evidence for cholelithiasis. Kidneys demonstrate no hydronephrosis. Stomach is partially distended. Small bowel loops are moderately distended. Severe bowel wall thickening of the rectosigmoid colon with mucosal hyperemia. Moderate volume stool in the colon. Underlying colonic diverticular disease No secondary signs for appendicitis.m perirectal lymph nodes measuring up to 7 mm Abdominal aortic atherosclerotic disease, tortuosity. Bladder partially distended. Trace free pelvic fluid. No inguinal lymphadenopathy. Left hip arthroplasty. [id number] bilateral sacroiliac degenerative joint disease. Moderate to advanced thoracolumbar degenerative disc disease. Thoracolumbar levocurvature. Moderate to advanced thoracolumbar degenerative disc disease most pronounced at L3-4, L4-5 and L5-S1. IMPRESSION: Severe rectosigmoid colon wall thickening, mucosal hyperemia which can be seen with colitis, inflammatory bowel disease. There are also underlying colonic diverticulum which could represent synchronous diverticulitis of the rectosigmoid colon. Recommend colonoscopy once acute symptoms resolve to exclude underlying colonic lesion/ neoplasm. Other findings as described. ATED BY: PEDRO LY MD DICTATED DATE/TIME: 02/07/25 1138 SIGNED BY: PEDRO LY MD SIGNED DATE/TIME: 02/07/25 1138 CC: Patient: SRAVAN HERNANDEZ Acct: [id number] : 1955 Loc: CENTRAL Age/Sex: 69/M Room: 0201 / Bed: A Attending Phy: TERRENCE PIERCE RESIDENT Operative Report DATE OF OPERATION: 02/06/25 PROCEDURE: Income Colonoscopy/sigmoidoscopy. PREOPERATIVE INDICATION: The patient is a 69 -year-old male undergoing colonoscopy for evaluation of suspected acute ulcerative colitis flare-up POSTOPERATIVE DIAGNOSES: 1. Patient had severe colitis up to and beyond the extent of the examination to about 30 cm above the anal verge with hyperemia erythema mucopus deep aphthous like ulcerations and pseudopolyps Limited study due to poor prep with large amount of liquid brown stool in the colon PROCEDURE PERFORMED BY: Marlene Mehta M.D. SCOPE: Olympus videocolonoscope. ASA CLASS: 3 PREOPERATIVE MEDICATIONS: Mac Florin mederos PROCEDURE IN DETAIL: After obtaining an informed consent, the patient was placed on left lateral decubitus position. He was then sedated with the above medications. A rectal examination was performed that was normal. The colonoscope was then passed through the anus into the rectosigmoid. The patient had [id number] colitis with deep aphthous like ulcerations surrounding hyperemia erythema spasm and pseudopolyps There was also suggestion of some diverticular disease and a moderate amount of stool output but no clear-cut fistula was detected The colonoscope could not be advanced safely beyond this area and multiple biopsies were obtained from the rectosigmoid. The colonoscope was then withdrawn. The patient tolerated the procedure well without difficulty. WITHDRAWAL TIME: Not applicable QUALITY OF THE PREP: Dorris Bowel Prep score: Not applicable, poor prep COMPLICATIONS : None SPECIMENS: Rectosigmoid biopsies DISPOSITION: Transfer back to the floor Stable PLAN: 1. Keep NPO except for ice chips 2. Patient will likely need possible PICC line and TPN 3. IV Solu-Medrol 40 mg q.8 hours 4. IV Flagyl 500 mg q.8 hours plan 5.Check labs including IBD panel 6. CT scan of the abdomen pelvis with oral and IV contrast 7. Surgical consult pending results of the CT scan of the abdomen pelvis to consider possible colectomy 8. Patient will likely need treatment with biological agent and may need referral to higher level of care if IV Remicade or IV cyclosporin is required MARLENE MEHTA MD Feb 06, 2025 14:43 DICTATED BY:MARLENE MEHTA MD DICTATED DATE/TIME:02/06/25 1443 ELECTRONICALLY SIGNED BY:MARLENE MEHTA MD 02/06/25 1443 ELECTRONICALLY CO-SIGNED BY: Condition at Discharge: Stable Final Diagnosis/Problems List acute exacerbation of severe ulcerative colitis # acute on chronic abdominal pain# acute bloody diarrhea# rectal bleeding# suspected acute on chronic ulcerative colitis/diverticulitis# rule out Clostridium difficile colitis# history of 1+ internal hemorrhoid# prostatic carcinoma, status post prostatectomy in 2009# iron-deficiency anemia# substance abuse cannabinoids Discharge Disposition: Home Discharge Instruct/Medications Diet: See Comment Diet comment: Mechanical soft Lactose-free diet Activity: No Restrictions, As Tolerated Follow Up/Referral: Please follow up with the primary care physician in 1 week Please follow up with shoe laster Dr. Mehta in 1 weeks Medications: As above Scheduled Azathioprine (Imuran), 1 TAB PO DAILY, (Reported) Cholestyramine (Questran Powder), 4 GM PO BID Dicyclomine Hcl (Bentyl Capsule), 20 MG PO BID Ferrous Sulfate (Ferosul), 325 MG PO BID, (Reported) Hydrocodone-Acetaminophen (Hydrocodone Bitartrate/AC 5-325 mg), 1 TAB PO QIDP Mesalamine (Lialda), 1.2 GM PO DAILY, (Reported) Mesalamine (Lialda), 800 MG PO TID Metronidazole (Metronidazole), 500 MG PO TID Montelukast Sodium (Montelukast Sodium), 1 TAB PO DAILY, (Reported) Pantoprazole Sodium Sesquihydr (Pantoprazole Sodium), 40 MG PO DAILY Prednisone (Prednisone), 60 MG PO DAILY Tofacitinib Citrate (Xeljanz), 10 MG PO EOD, (Reported) Yeast (S. Boulardii)(S. Cerevi (Florastor), 250 MG PO BID Miscellaneous Medications Fluticasone Propionate (Nasal) (Fluticasone Propionate), 1 SPRAY CRISTOFER, (Reported) Discharge Statement: "Patient was advised to return to the ER or call 911 if any headaches, dizziness, shortness of breath, chest pain, abdominal pain, bleeding, fevers, or worsening of medical condition. Patient was counseled about treatment plan, medications, possible side effects, patientverbalized understanding. All questions were answered to the best of my ability. This discharge took greater then 30 minutes in planning, reviewing documentation, counseling the patient, and discussing with other team members." ASSESSMENT ASSESSMENT Assessment # acute on chronic abdominal pain# acute bloody diarrhea# rectal bleeding# suspected acute on chronic ulcerative colitis/diverticulitis# rule out Clostridium difficile colitis# history of 1+ internal hemorrhoid# prostatic carcinoma, status post prostatectomy in 2009# iron-deficiency anemia# substance abuse cannabinoids Date of Service: Feb 09, 2025 Billing Provider: RAYMOND CERNA MD Common Visit Codes: 87126-QNK/OBS DISCH DAY >30min TERRENCE PIERCE RESIDENT Feb 09, 2025 10:51 RAYMOND CERNA MD Feb 12, 2025 02:27
[2025-02-09] MEDS: predniSONE 20 MG TAB PO SCH (12:00)
[2025-02-09 12:30] VITALS: BP 136/73; PULSE 52; RESP 18; TEMP 98.1; O2SAT 98
[2025-02-09] MEDS ORDERED: SACC250C PO (14:12)
[2025-02-09] MEDS ORDERED: CHL4PW PO (14:12)
[2025-02-09] MEDS ORDERED: DICY10CA PO (14:12)
[2025-02-09] MEDS ORDERED: PRED20TA2 PO (14:12)
[2025-02-09] MEDS ORDERED: MESA1.2T PO (14:12)
[2025-02-09] MEDS ORDERED: PANT40T PO (14:12)
[2025-02-09] MEDS ORDERED: MET500T PO (14:14)
[2025-02-09] MEDS ORDERED: HYDR-4902 PO (14:28)
== END 2025-02-09 15:21 | disposition home health service (06) | DRG 245 ==
LOC: EDUNIT# 17:53 → EDBD 17:53 → ER 17:57 → OVERFLOW 20:34 → CENTRAL 01-30 17:15
PROVIDERS: ADMIT Student in an Organized Health Care Education/Training Program; ATTEND Student in an Organized Health Care Education/Training Program
PROC: 0DBN8ZX Excision of Sigmoid Colon, Via Natural or Artificial Opening Endoscopic, Diagnostic (ICD-10-PCS; principal; 2025-02-06 14:06)
DX: K51.911 Ulcerative colitis, unspecified with rectal bleeding (principal); A04.72 Enterocolitis due to Clostridium difficile, not specified as recurrent; K57.33 Diverticulitis of large intestine without perforation or abscess with bleeding; D50.9 Iron deficiency anemia, unspecified; D72.819 Decreased white blood cell count, unspecified; F19.10 Other psychoactive substance abuse, uncomplicated; I10 Essential (primary) hypertension; K64.8 Other hemorrhoids; Z90.79 Acquired absence of other genital organ(s); Z85.46 Personal history of malignant neoplasm of prostate; Z79.899 Other long term (current) drug therapy
CPT/HCPCS: 36415; 71045; 74176; 74177; 80048; 80053; 80069; 80307; 81001; 82270; 82728; 82962; 83036; 83540; 83550; 83605; 83690; 83735; 83880; 84100; 84443; 84484; 85007; 85025; 85027; 85048; 85610; 85652; 85730; 86141; 86256; 86671; 87040; 87045; 87177; 87427; 87493; 93005; 96360; G0378; J1756; J1815; J2405; J2470; J2543; J2704; J3490

== ENCOUNTER 2025-03-08 19:10 | Emergency (ER) | payer MEDICAID ==
[~2025-03-08] VITALS: Ht 175.3 cm; Wt 77.0 kg
[~2025-03-08 19:10] MED LIST changes: +CHL4PW PO; +DICY10CA PO; +FERR325T20 PO; +FLUT50SP NAS; +HYDR-4902 PO; +MET500T PO; +MONT-8 PO; +PANT40T PO; +PANT40TA2 PO; +PRED10TA PO; +PRED20TA2 PO; +SACC250C PO
--- NOTE | 2025-03-08 19:45 | ED.PDOC ---
Musculoskeletal HPI Comments This is a 69 year old male presenting to the ED with chief complaint of left elbow injury. Patient reports that he had tripped and fell this morning, injuring his left elbow. Patient relays that he visited 2 hours ago and after an XR was done, he was told he had a fracture to his elbow. Patient states he was advised to come to the ED for further management. Patient denies any numbness, weakness, or tingling. Patient denies any head trauma or blood loss. Chief Complaint: Upper Extremity Time Seen by MD: 19:43 Primary Care Provider: Sanchez Butt Reviewed Notes: Nurses Notes, Medications, Allergies Allergies: Coded Allergies: NO KNOWN ALLERGIES (Unverified , 03/04/22) Home Meds Active Scripts Prednisone (Prednisone) 10 Mg Tab, 30 MG PO DAILY for 30 Days, #90 MG 0 Refills 30 MG P.O. DAILY FOR 4 WEEKS UNTIL FOLLOW UP APPOINTMENT WITH GI Prov:JAZMIN MCPHERSON 02/28/25 Pantoprazole Sodium Sesquihydr (Protonix) 40 Mg Tab, 40 MG PO DAILY for 30 Days, #30 TAB 5 Refills Prov:JAZMIN MCPHERSON 02/28/25 Hydrocodone-Acetaminophen (Hydrocodone Bitartrate/AC 5-325 mg) 1 Tab Tab, 1 TAB PO QIDP for 7 Days, #28 TAB 0 Refills Prov:RAYMOND CERNA MD 02/09/25 Metronidazole (Metronidazole) 500 Mg Tab, 500 MG PO TID for 7 Days, #21 TAB Prov:TERRENCE PIERCE 02/09/25 Dicyclomine Hcl (BENTYL CAPSULE) 10 Mg Cp, 20 MG PO BID for 14 Days, #30 CAP Prov:TERRENCE PIERCE 02/09/25 Mesalamine (Lialda) 1.2 Gm Tab, 800 MG PO TID for 14 Days, #42 TAB Prov:TERRENCE PIERCE 02/09/25 Cholestyramine (QUESTRAN POWDER) 4 Gm Pw, 4 GM PO BID for 10 Days, #100 POW Prov:TERRENCE PIERCE 02/09/25 Yeast (S. Boulardii)(S. Cerevi (Florastor) 250 Mg Cap, 250 MG PO BID for 7 Days, #14 CAP Prov:TERRENCE PIERCE 02/09/25 Pantoprazole Sodium Sesquihydr (Pantoprazole Sodium) 40 Mg Tab, 40 MG PO DAILY for 30 Days, #30 TAB 1 Refill Prov:TERRENCE PIERCE RESIDENT 02/09/25 Prednisone (Prednisone) 20 Mg Tab, 60 MG PO DAILY for 14 Days, #14 MG Prov:TERRENCE PIERCE RESIDENT 02/09/25 Reported Medications Ferrous Sulfate (Ferosul) 325 Mg Tab, 325 MG PO BID, TAB 01/30/25 Montelukast Sodium (MONTELUKAST SODIUM) 10 Mg Tab, 1 TAB PO DAILY 01/30/25 Fluticasone Propionate (Nasal) (Fluticasone Propionate) 50 Mcg/Act Spr, 1 SPRAY CRISTOFER 01/30/25 Azathioprine (Imuran) 50 Mg Tab, 1 TAB PO DAILY, #30 TAB 3 Refills 07/24/24 Tofacitinib Citrate (Xeljanz) 10 Mg Tab, 10 MG PO EOD, TAB 07/24/24 Mesalamine (Lialda) 1.2 Gm Tab, 1.2 GM PO DAILY, TAB 07/24/24 Information Source: Patient Mode of Arrival: Ambulatory Location: Left Extremity Location: Elbow Timing: Hours Prehospital treatment: Treatment Severity: Moderate Able to Move Extremity: Yes Bear Weight: Fully Pain: Moderate Hand Dominance: Right Mechanism: Blunt Trauma Circumstances: Fall Onset of Symptoms: After Trauma Symptoms: Swelling, Pain DVT Risk Factors: NONE Last Tetanus: Unknown Past Medical History PAST MEDICAL HISTORY: Cancer, HTN Surgical History: Denies all surgeries Family History Family History: Reviewed,noncontributory to illness Social History Smoker: Non-Smoker Alcohol: Rarely Drugs: Denies Drug Use Lives In: Home Constitutional: denies: chills, diaphoresis, fatigue, fever, malaise, sweats, weakness, others EENTM: denies: blurred vision, double vision, ear bleeding, ear discharge, ear drainage, ear pain, ear ringing, eye pain, eye redness, hearing loss, mouth pain, mouth swelling, nasal discharge, nose bleeding, nose congestion, nose pain, photophobia, tearing, throat pain, throat swelling, voice changes, others Respiratory: denies: cough, hemoptysis, orthopnea, SOB at rest, shortness of breath, SOB with excertion, stridor, wheezing, others Cardiovascular: denies: chest pain, dizzy spells, diaphoresis, Dyspnea on exertion, edema, irregular heart beat, left arm pain, lightheadedness, palpitations, PND, syncope, others Gastrointestinal: denies: abdomen distended, abdominal pain, blood streaked bowels, constipated, diarrhea, dysphagia, difficulty swallowing, hematemesis, melena, nausea, poor appetite, poor fluid intake, rectal bleeding, rectal pain, vomiting, others Genitourinary: denies: burning, dysuria, flank pain, frequency, hematuria, incontinence, penile discharge, penile sore, pain, testicle pain, testicle swelling, urgency, others Neurological: denies: dizziness, fainting, headache, left sided numbness, left sided weakness, numbness, paresthesia, pre-existing deficit, right sided numbness, right sided weakness, seizure, speech problems, tingling, tremors, weakness, others Musculoskeletal: reports: others (Lt elbow pain); denies: back pain, gout, joint pain, joint swelling, muscle pain, muscle stiffness, neck pain Integumetry: denies: bruises, change in color, change in hair/nails, dryness, laceration, lesions, lumps, rash, wounds, others Allergic/Immunocompromised: denies: Difficulty Healing, Frequent Infections, Hives, Itching, others Hematologic/Lymphatic: denies: anemia, blood clots, easy bleeding, easy bruising, swollen glands, others Endocrine: denies: excessive hunger, excessive sweating, excessive thirst, excessive urination, flushing, intolerance to cold, intolerance to heat, unexplained weight gain, unexplained weight loss, others Psychiatric: denies: anxiety, bipolar disorder, depression, hopeless, panic disorder, schizophrenia, sleepless, suicidal, others All Other Systems: Reviewed and Negative Physical Exam General Appearance: Moderate Distress (Due to left elbow pain concerns.), Normal HEENT: Normal ENT Inspection, Pharynx Normal, TMs Normal Neck: Full Range of Motion, Non-Tender, Normal, Normal Inspection Respiratory: Chest Non-Tender, Lungs Clear, No Accessory Muscle Use, No Respiratory Distress, Normal Breath Sounds Cardiovascular: No Edema, No JVD, No Murmur, No Gallop, Normal Peripheral Pulses, Regular Rate/Rhythm Breast Exam: Deferred Gastrointestinal: No Organomegaly, Non Tender, No Pulsatile Mass, Normal Bowel Sounds, Soft Genitalia: Deferred Pelvic: Deferred Rectal: Deferred Extremities: Other (Posterior left elbow is diffusely tender to palpation throughout with a significant reduction in range of motion. Distal neurovascularly intact. Mild developing ecchymosis noted.) Neurologic: Alert Cerebellar Function: NOT DONE Reflexes: NOT DONE Skin: Dry, Normal Color, Warm Lymphatic: No Adenopathy Was a procedure done? Was a procedure done?: No Differential Diagnosis EXT Differential Diagnosis: Fracture, Contusion, Strain X-Ray, Labs, Meds, VS Vital Signs Date Time Temp Pulse Resp B/P (MAP) Pulse Ox O2 Delivery O2 Flow Rate FiO2 03/08/25 21:05 97.7 69 18 140/63 (88) 95 97.7 03/08/25 21:05 69 18 95 Room Air* 0 21 03/08/25 19:12 97.0 61 18 150/69 98 97.0 Current Medications Medications (Trade) Dose Ordered Sig/Aramis Route Start Time Stop Time Status Last Admin Acetaminophen/ Hydrocodone Bitart (Cameron 10/325MG Tab) 1 tab ONCE ONCE PO 03/08/25 19:45 03/08/25 19:46 DC 03/08/25 21:02 Ketorolac Tromethamine (Toradol Injection) 30 mg ONCE ONCE IM 03/08/25 19:45 03/08/25 19:46 DC 03/08/25 21:02 X-Ray, Labs, Meds, VS Comment All studies performed the ED were evaluated by me personally. Imaging studies confirmed a comminuted fracture of the proximal ulna with displacement of the olecranon process proximally. Patient was put any long arm posterior splint has been advised to follow up with ortho in the next 3-5 days for re-evaluation, possible surgical intervention and if available, cast placement. Time of 1ST Reevaluation: 21:28 Reevaluation 1ST: Improved Consultation: PCP, Other (Orthopedist) Patient Education/Counseling: Diagnosis, Treatment Family Education/Counseling: Diagnosis, Treatment, No Family Present Sepsis Recent Procedure: No On Antibiotic Therapy: No Respiratory Rate >20: No Heart Rate >90: No Temp<36 C (96.8 F) or >38.3 C: No SBP <90 or MAP <65 mmHG: No New Acute Mental Status Change: No Is the patient on CPAP, BIPAP,: No IV fluid given: No Departure 1 Departure Time of Disposition: 21:29 Impression: Primary Impression: Ulnar fracture Disposition: HOME / SELF CARE / HOMELESS Condition: Stable Additional Instructions: Advised patient utilize pain medication as needed as well as follow up with the primary care provider in the next day or two for re-evaluation and possible orthopedic referral. If patient is unable to secure follow up in the next few days, contact this facility tomorrow at [phone] and asked for the orthopedic department that has supervised by Dr. Pisano for evaluation and in tervention as needed. e-Prescriptions Hydrocodone-Acetaminophen (Hydrocodone Bitartrate/AC 10-325 mg) 1 Tab Tab 1 TAB PO Q8HP PRN, #20 TAB Prov: CAMILO HU PAC 03/08/25 Ibuprofen Micronized (Ibuprofen) 800 Mg Tab 800 MG PO Q8HP PRN, #20 TAB Prov: CAMILO HU PAC 03/08/25 Discharged With: Self, Friend Critical Care Note Critical Care Time?: No Stability Stability form required: No Heart Score Heart Score: Heart Score Response (Comments) Value History N/A 0 EKG N/A 0 Age N/A 0 Risk Factors N/A 0 Troponin N/A 0 Total 0 I personally scribed for CAMILO HU PAC ([email or web address]) on 03/08/25 at 19:44. Electronically submitted by Cas Balderas ([email or web address]). CAMILO HU PAC Mar 08, 2025 19:44
[2025-03-08] MEDS: HYDROcodone-ACET 10/325MG TAB PO ONE (21:02)
[2025-03-08] MEDS: KETOROLAC TROMETH 60MG/2ML VIAL IM ONE (21:02)
--- NOTE | 2025-03-08 21:02 | DVH ---
CLINICAL INDICATION: Trauma/fall TECHNIQUE: 3 radiographic views of the left elbow were obtained. Comparison: XY L ELBOW 3 VIEW XRAY on DOS: 03/08/25 FINDINGS/IMPRESSION: Comminuted fracture proximal ulna. Displacement of the olecranon process proximally. HS:Y
[2025-03-08 21:05] VITALS: BP 140/63; PULSE 69; RESP 18; TEMP 97.7; O2SAT 95
[2025-03-08] MEDS ORDERED: HYDR-4798 PO (21:32)
[2025-03-08] MEDS ORDERED: IBUP-1455 PO (21:32)
== END 2025-03-08 21:50 | disposition home or self-care (01) ==
LOC: ER 19:10
DX: S52.002A Unspecified fracture of upper end of left ulna, initial encounter for closed fracture (principal); F10.90 Alcohol use, unspecified, uncomplicated; I10 Essential (primary) hypertension; Z79.899 Other long term (current) drug therapy; Z79.631 Long term (current) use of antimetabolite agent; Z79.624 Long term (current) use of inhibitors of nucleotide synthesis; Z79.52 Long term (current) use of systemic steroids; W01.0XXA Fall on same level from slipping, tripping and stumbling without subsequent striking against object, initial encounter; Y93.89 Activity, other specified; Y92.89 Other specified places as the place of occurrence of the external cause; Y99.8 Other external cause status; Y90.9 Presence of alcohol in blood, level not specified
CPT/HCPCS: 29105; 73080; 96372; 99283; J1885; 29125